=== PATIENT | male | born 1970 | race Caucasian/White ===

== ENCOUNTER 2020-02-17 09:15 | Outpatient (REF) | payer MEDICARE, MEDICAID, SELFPAY | END 2020-02-17 09:16 | disposition home or self-care (01) | LOC: HO.LAB 09:15 | PROVIDERS: Visit Provider Internal Medicine | DX: Z20.828 Contact with and (suspected) exposure to other viral communicable diseases (principal) | CPT/HCPCS: U0003 ==

== ENCOUNTER 2020-04-20 09:49 | Outpatient (REF) | payer MEDICARE, MEDICAID, SELFPAY | END 2020-04-20 09:50 | disposition home or self-care (01) | LOC: HO.LAB 09:49 | PROVIDERS: Visit Provider Nurse Practitioner Family | DX: Z20.822 Contact with and (suspected) exposure to COVID-19 (principal) | CPT/HCPCS: 36415; U0003 ==

== ENCOUNTER 2020-07-26 10:33 | Outpatient (REF) | payer MEDICARE, MEDICAID, SELFPAY ==
[2020-07-26 11:55] LABS: COVID-19 Test Negative (Negative)
== END 2020-07-26 10:34 | disposition home or self-care (01) ==
LOC: HO.LAB 10:33
PROVIDERS: Visit Provider Internal Medicine
DX: Z20.822 Contact with and (suspected) exposure to COVID-19 (principal)
CPT/HCPCS: 36415; 87635; C9803

== ENCOUNTER 2020-08-02 10:20 | Outpatient (REF) | payer MEDICARE, MEDICAID, SELFPAY ==
[2020-08-02 10:51] LABS: COVID-19 Test Negative (Negative)
== END 2020-08-02 10:21 | disposition home or self-care (01) ==
LOC: HO.LAB 10:20
PROVIDERS: Visit Provider Internal Medicine
DX: Z20.822 Contact with and (suspected) exposure to COVID-19 (principal)
CPT/HCPCS: 36415; 87635; C9803

== ENCOUNTER 2021-05-19 12:10 | Emergency (ER) | payer MEDICARE, MEDICAID, SELFPAY ==
--- NOTE | ~2021-05-19 | CT_ITS ---
EXAMINATION: CT MAXILLOFACIAL WITH CONTRAST CLINICAL INFORMATION: Left-sided facial swelling. COMPARISON: None available. TECHNIQUE: Multidetector helical imaging was performed in the axial plane following the administration of 85 mL Omnipaque 350 intravenous contrast. Generation of coronal and sagittal reformatted images. This CT examination was performed using dose optimization techniques as appropriate, variously including the following: *Automated exposure control *Adjustment of mA and/or kV according to patient size (this includes techniques or standardized protocols for targeted exams where dose is matched to indication/reason for exam; i.e. extremities or head) *Use of iterative reconstruction technique DLP: 320 mGy-cm FINDINGS: FRONTAL SINUSES AND DRAINAGE PATHWAYS: The frontal sinuses are clear. The frontoethmoidal recesses are patent. MAXILLARY SINUSES AND DRAINAGE PATHWAYS: Mild mucosal thickening of the maxillary sinuses. The maxillary ostia and infundibula are patent. ETHMOID SINUSES: Mild to moderate mucosal thickening of the ethmoid air cells. The ethmoid roofs appear symmetric and intact. SPHENOID SINUS AND DRAINAGE PATHWAYS: The sphenoid sinus is clear. The sphenoethmoidal recesses are patent. The carotid canals are normally covered by bone. NASAL PASSAGE: Mild mucosal thickening of the nasal passages. Moderate rightward nasal septal deviation. ORBITS: Normal appearance of the osseous orbits. The lamina papyracea are intact. No significant preseptal or retrobulbar edema. Normal appearance of the globes. Normal symmetric appearance of the extraocular musculature. No abnormalities of the intraconal or extraconal adipose tissue. Normal appearance of the optic nerve sheaths. Normal appearance of the lacrimal glands. No orbital fluid collections. No abnormalities of the orbital apices. TEMPOROMANDIBULAR JOINTS: The temporomandibular joints remain well aligned. Normal appearance of the temporomandibular joints. ADDITIONAL RELEVANT FINDINGS: Multifocal odontogenic enamel erosions and periapical lucencies of the mandibular and maxillary teeth. Partial erosion of the outer table of the alveolar process associated with the maxillary left-sided premolar. Moderate phlegmonous edema within the left-sided buccal soft tissues extending along the outer left-sided body and ramus of the mandible. No demonstrated discrete drainable fluid collection. Associated moderate thickening of the left-sided the platysma muscle. The premaxillary, pterygopalatine fossa, and orbital apical adipose tissue is maintained. Minimal fat stranding in the left-sided retromaxillary and temporal fossa adipose tissue. The right-sided retromaxillary and temporal fossa adipose tissue is clear. No demonstrated soft tissue abnormalities within the intrinsic tissues of the tongue. No radiopaque foreign body. No evidence of maxillofacial bone fractures. The zygomatic arches remain intact. No nasal bone fracture. Moderate rightward nasal septal deviation with spurring. No evidence of mandibular or maxillary fracture. The visualized mastoid air cells and middle ear cavities remain well aerated. Limited evaluation of the intracranial structures without significant abnormalities. CT/CT facial bones w con IMPRESSION: 1. Extensive maxillary and mandibular odontogenic disease with multifocal enamel erosions and periapical lucencies. Moderate phlegmonous edema throughout the left side of face, likely odontogenic in nature. No demonstrated discrete drainable fluid collection. No radiopaque foreign body. 2. Mild pansinonasal mucosal disease. Moderate rightward nasal septal deviation.
[2021-05-19 12:22] VITALS: BP 206/106; PULSE 109; RESP 18; TEMP 36.7; O2SAT 94; BMI 36.0
--- NOTE | 2021-05-19 13:02 | ED_ITS ---
HPI - Dental/Oral General Chief complaint: Dental/Oral Stated complaint: Dental pain/facial swelling Time Seen by Provider: 05/19/21 12:26 Source: patient Mode of arrival: ambulatory Limitations: no limitations History of Present Illness HPI Narrative: 50-year-old male with a history of hypertension, [id number] diabetes here with reports of left-sided facial swelling since last evening. Patient tells me that he has extensive dental caries and does not see a dentist. He tells me he has 1 tooth that is quite painful on the left lower area. Last night he noticed some swelling over the face but this seems worsened this morning. He denies any fevers or chills. No difficulty swallowing or breathin g. +smoker Related Data Home Medications Medication Instructions Recorded Confirmed blood-glucose meter #1 ea 04/20/20 clonidine HCl 0.1 mg tablet 0.1 mg PO TID PRN 04/20/20 docusate sodium 100 mg capsule 100 mg PO BID 04/20/20 doxepin 150 mg capsule 150 mg PO BEDTIME 04/20/20 dulaglutide 0.75 mg/0.5 mL 1.5 mg SUBCUT QWEEK 04/20/20 subcutaneous pen injector hydrochlorothiazide 25 mg tablet 25 mg PO DAILY 04/20/20 lisinopril 40 mg tablet 40 mg PO DAILY 04/20/20 losartan 25 mg tablet 25 mg PO DAILY 04/20/20 losartan 50 mg tablet 50 mg PO DAILY 04/20/20 metformin 1,000 mg tablet 1,000 mg PO BID 04/20/20 metoprolol succinate 200 mg 200 mg PO DAILY 04/20/20 tablet,extended release 24 hr multivitamin 1 tab PO DAILY 04/20/20 nifedipine 60 mg tablet,extended 60 mg PO DAILY 04/20/20 release nifedipine 60 mg tablet,extended 60 mg PO DAILY 04/20/20 release 24 hr olanzapine 20 mg tablet 20 mg PO BEDTIME 04/20/20 quetiapine 100 mg tablet 100 mg PO BEDTIME 04/20/20 quetiapine 25 mg tablet 25 mg PO TID PRN 04/20/20 trazodone 50 mg tablet 50 mg PO BEDTIME 04/20/20 venlafaxine 150 mg 150 mg PO DAILY 04/20/20 capsule,extended release 24 hr vitamin B complex 1 tab PO DAILY 04/20/20 Previous Rx's Medication Instructions Recorded cetirizine 10 mg capsule (Zyrtec) 10 mg PO DAILY PRN #30 cap 04/20/20 clindamycin HCl 300 mg capsule 300 mg PO BID 7 Days #14 cap 05/19/21 Allergies Allergy/AdvReac Type Severity Reaction Status Date / Time No Known Allergies Allergy Verified 05/19/21 12:22 Review of Systems Verdana 4l Review of Systems: Verdana 4d Yes all other systems are reviewed and are negative Verdana 4l Constitutional: Verdana 4d Verdana 4d Constitutional: Verdana 4d Reports no additional constitutional complaints, Denies body ache(s), Denies chills, Denies fever(s), Denies headache(s) and Denies weakness Verdana 4l Eyes: Verdana 4d Verdana 4d Eyes: Verdana 4d Reports no additional eye complaints and Denies change in vision Verdana 4l ENT: Verdana 4d Reports system reviewed and no additional complaints, except as documented, Reports dental pain, Denies dizziness, Reports facial pain, Denies headache(s), Denies nasal congestion, Denies nasal discharge and Denies neck pain Verdana 4d Comments: +facial swelling Cardiovascular: Cardiovascular: Reports no additional cardiovascular complaints, Denies chest pain, Denies leg edema and Denies dyspnea Respiratory: Respiratory: Reports no additional respiratory complaints, Denies cough and Denies dyspnea Gastrointestinal: Gastrointestinal: Reports no additional gastrointestinal complaints, Denies abdominal pain, Denies diarrhea, Denies nausea and Denies vomiting Genitourinary: Genitourinary: Denies urinary incontinence Musculoskeletal: Musculoskeletal: Reports no additional musculoskeletal complaints, Denies back pain, Denies arthralgias, Denies joint swelling, Denies neck pain, Denies numbness and Denies tingling Integumentary/Breasts: Skin/Breast: Reports system reviewed and no additional complaints, except as docu and Denies rash Neurologic: Reports system reviewed and no additional complaints, except as documented, Denies Abnormal speech present, Denies dizziness, Denies headache(s), Denies numbness, Denies tingling and Denies weakness PMFSH Past Medical History Attestation statement: The following information was validated with the patient. Source: old records reviewed and nursing notes reviewed Medical History Diabetes Social History Social History Advance Directives: No Advance Directives Information Provided: No Physical Exam Verdana 4l Vital Signs: Verdana 4d Verdana 4d Vital Signs: Verdana 4d Verdana 4Bd Last Vital Signs Verdana 4d Social Media Project Manager New 4d Social Media Project Manager New 4d Temp 98.0 F 05/19/21 12:22 Social Media Project Manager New 4d Pulse 80 05/19/21 16:04 Social Media Project Manager New 4d Resp 18 05/19/21 15:35 BP 178/89 H 05/19/21 16:04 Pulse Ox 97 05/19/21 16:04 BMI result Body Mass Index 36.0 Const: General: cooperative, healthy appearing, comfortable and no acute distress Orientation/consciousness: patient oriented x3 Limitations: no limitations HENMT: Other: No trismus To the left face there is moderate swelling Head: Yes normal to inspection Ears: hearing grossly normal bilaterally and TM's normal bilaterally General nose exam: Normal external nose present Face and sinus: Yes normal facial exam Mouth: Normal oral and palatal mucosa present Teeth and gingiva: caries Teeth image: 1. At the gum line there is tenderness, swelling. There is no obvious fluctuance or induration. Extensive dental caries throughout Throat: Yes posterior oropharynx normal, Yes tonsils normal and Yes uvula midline Eyes: General: appearance normal, both eyes and all related structures Pupils: Equal, round and reactive pupils present Neck: Neck: Yes normal visual inspection, Yes full ROM, Yes no lymphadenopathy and Yes no meningeal signs Chest: Chest palpation & inspection: normal inspection of the chest Resp: Effort & Inspection: normal respiratory effort Auscultation: clear to auscultation bilaterally Cardio: Rate: regular rate Rhythm: regular rhythm Peripheral pulses: Peripheral pulses 2+ throughout GI: Inspection: Yes normal to inspection Palpation (GI): Soft to palpation and nontender Auscultation: normal bowel sounds Back/Spine/Pelvis: Thoracic/Lumbar Spine: thoracic and lumbar spine normal to inspection Skin: General skin exam: no rashes or lesions noted Neuro: General: patient oriented x3, no meningeal signs, no focal motor deficits and normal sensation to monofilament Cranial nerves: Yes Equal, round and reactive pupils present Cognition (Neuro): normal cognition Speech: No Abnormal speech present Gait exam (Neuro): Normal gait present Motor exam (neuro): 5/5 motor strength present throughout Extrem: General: Yes normal to inspection Course Course Course Narrative: 50-year-old male with a history of diabetes, extensive dental caries here with reports of left-sided facial swelling since last evening. On exam the patient has moderate facial swelling over the left cheek. There is no trismus. There is extensive dental caries throughout with 1 tooth that has erythema, tenderness and swelling of the gum line with no obvious abscess or fluid collection. Will check CT facial bones to rule out underlying abscess versus osteomyelitis. Will check labs. At this time infection is suspected. Antibiotics ordered -asymptomatic hypertension. Patient did not take his morning medications. Will dose. 1550-CT shows no drainable fluid collection. There is some local edema which is consistent with facial cellulitis. Patient is nontoxic appearing. Vitals are stable. No leukocytosis or fever. Patient has no trismus or concern for ludwigs angina. Will discharge home with course of antibiotics and follow-up with dental clinic outpatient. Reviewed worrisome signs and symptoms such as fever, increasing swelling or difficulty breathing or swallowing when to return to the emergency department. Comfortable discharge home. MDM - Dental/Oral Medical Records Attestation: I reviewed the patient's medical records. Lab Data Attestation: I reviewed the patient's lab results. Result diagrams: 05/19/21 13:15 05/19/21 13:15 Labs: Lab Results 05/19/21 05/19/21 05/19/21 Range/Units 13:14 13:15 13:15 WBC 8.5 (4.8-10.8) X10*3/uL RBC 4.89 (4.60-5.80) X10*6/uL Hgb 15.1 (14.0-18.0) g/dl Hct 44.9 (42.0-52.0) % MCV 91.8 (80.0-98.0) fL MCH 30.9 (27.0-33.0) pg MCHC 33.6 (31.0-36.0) g/dl RDW 13.6 (11.0-16.0) % Plt Count 250 (160-400) X10*3/uL MPV 10.0 (9.4-12.4) fL Immature Gran % (Auto) 0.2 (0.0-0.4) % Neut % (Auto) 70.7 (45-73) % Lymph % (Auto) 12.5 L (20-40) % [place] % (Auto) 10.1 (2-11) % Eos % (Auto) 5.9 H (0-4) % Baso % (Auto) 0.6 (0-2) % Lymph # (Auto) 1.1 L (1.2-4.9) X10*3/uL [place] # (Auto) 0.9 (0.1-1.2) X10*3/uL Eos # (Auto) 0.5 H (0.0-0.4) X10*3/uL Baso # (Auto) 0.1 (0.0-0.2) X10*3/uL Abs Immat Gran (auto) 0.02 (0.00-0.03) X10*3/uL Absolute Neuts (auto) 6.0 (2.0-8.3) x10*3/uL Absolute Nucleated RBC 0.000 (0.0-0.012) X10*3/uL Nucleated RBC % (auto) 0.0 (0.0-0.2) /100WBC Sodium 142 (135-145) mmol/L Potassium 3.9 (3.3-5.1) mmol/L Chloride 99 (96-108) mmol/L Carbon Dioxide 35 H (22-29) mmol/L Anion Gap 12 (12-20) BUN 10 (9-16) mg/dL Creatinine 1.08 (0.5-1.4) mg/dL Estim Creat Clear Calc 93.1 Estimated GFR > 60 Random Glucose 115 (60-115) mg/dL Lactic Acid 1.1 (0.5-2.0) mmol/L Calcium 9.8 (8.4-10.2) mg/dL Imaging Data CT facial bone: Attestation: I personally reviewed and interpreted this imaging study as follows: Radiologist's impression: FINDINGS: FRONTAL SINUSES AND DRAINAGE PATHWAYS: The frontal sinuses are clear. The frontoethmoidal recesses are patent. MAXILLARY SINUSES AND DRAINAGE PATHWAYS: Mild mucosal thickening of the maxillary sinuses. The maxillary ostia and infundibula are patent. ETHMOID SINUSES: Mild to moderate mucosal thickening of the ethmoid air cells. The ethmoid roofs appear symmetric and intact. SPHENOID SINUS AND DRAINAGE PATHWAYS: The sphenoid sinus is clear. The sphenoethmoidal recesses are patent. The carotid canals are normally covered by bone. NASAL PASSAGE: Mild mucosal thickening of the nasal passages. Moderate rightward nasal septal deviation. ORBITS: Normal appearance of the osseous orbits. The lamina papyracea are intact. No significant preseptal or retrobulbar edema. Normal appearance of the globes. Normal symmetric appearance of the extraocular musculature. No abnormalities of the intraconal or extraconal adipose tissue. Normal appearance of the optic nerve sheaths. Normal appearance of the lacrimal glands. No orbital fluid collections. No abnormalities of the orbital apices. TEMPOROMANDIBULAR JOINTS: The temporomandibular joints remain well aligned. Normal appearance of the temporomandibular joints. ADDITIONAL RELEVANT FINDINGS: Multifocal odontogenic enamel erosions and periapical lucencies of the mandibular and maxillary teeth. Partial erosion of the outer table of the alveolar process associated with the maxillary left-sided premolar. Moderate phlegmonous edema within the left-sided buccal soft tissues extending along the outer left-sided body and ramus of the mandible. No demonstrated discrete drainable fluid collection. Associated moderate thickening of the left-sided the platysma muscle. The premaxillary, pterygopalatine fossa, and orbital apical adipose tissue is maintained. Minimal fat stranding in the left-sided retromaxillary and temporal fossa adipose tissue. The right-sided retromaxillary and temporal fossa adipose tissue is clear. No demonstrated soft tissue abnormalities within the intrinsic tissues of the tongue. No radiopaque foreign body. No evidence of maxillofacial bone fractures. The zygomatic arches remain intact. No nasal bone fracture. Moderate rightward nasal septal deviation with spurring. No evidence of mandibular or maxillary fracture. The visualized mastoid air cells and middle ear cavities remain well aerated. Limited evaluation of the intracranial structures without significant abnormalities. CT/CT facial bones w con IMPRESSION: 1. Extensive maxillary and mandibular odontogenic disease with multifocal enamel erosions and periapical lucencies. Moderate phlegmonous edema throughout the left side of face, likely odontogenic in nature. No demonstrated discrete drainable fluid collection. No radiopaque foreign body. ? 2. Mild pansinonasal mucosal disease. Moderate rightward nasal septal deviation. ? Discharge Plan Discharge Clinical Impression: Cellulitis of face, Dental caries Patient Disposition: Home, Self-Care Instructions: Cellulitis (ED) Additional Instructions: Soft foods Salt water gargles Follow-up with dental clinic Prescriptions: New clindamycin HCl 300 mg capsule 300 mg PO BID 7 Days Qty: 14 0RF No Action Trulicity 0.75 mg/0.5 mL pen injector 1.5 mg subcut QWEEK 0RF doxepin 150 mg capsule 150 mg PO BEDTIME 0RF venlafaxine 150 mg capsule,extended release 24hr 150 mg PO DAILY 0RF quetiapine 25 mg tablet 25 mg PO TID PRN0RF clonidine HCl 0.1 mg tablet 0.1 mg PO TID PRN0RF olanzapine 20 mg tablet 20 mg PO BEDTIME 0RF hydrochlorothiazide 25 mg tablet 25 mg PO DAILY 0RF vitamin B complex Tablet 1 tab PO DAILY 0RF docusate sodium 100 mg capsule 100 mg PO BID 0RF metformin 1,000 mg tablet 1,000 mg PO BID 0RF nifedipine 60 mg tablet extended release 24hr 60 mg PO DAILY 0RF quetiapine 100 mg tablet 100 mg PO BEDTIME 0RF multivitamin Tablet 1 tab PO DAILY 0RF metoprolol succinate 200 mg tablet extended release 24 hr 200 mg PO DAILY 0RF losartan 50 mg tablet 50 mg PO DAILY 0RF lisinopril 40 mg tablet 40 mg PO DAILY 0RF losartan 25 mg tablet 25 mg PO DAILY 0RF nifedipine 60 mg tablet extended release 60 mg PO DAILY 0RF (DME) blood-glucose meter Kit See Rx Instructions ea .ROUTE .MEDSUPPLY Qty: 1 0RF Rx Instructions: As directed trazodone 50 mg tablet 50 mg PO BEDTIME 0RF Zyrtec 10 mg capsule 10 mg PO DAILY PRN (Reason: allergy symptoms) Qty: 30 0RF Referrals: Zaria Haddad NP [Primary Care Provider] - 2 days Interventions: ED Discharge Assessment Last Done: 05/19/21 16:05 Discharge Date/Time: 05/19/21 16:07
[2021-05-19 13:22] LABS: MANUAL DIFF FLAG NO
[2021-05-19 13:23] LABS: Basophils Absolute Auto 0.1 X10*3/uL (0.0-0.2); Basophils Percent Auto 0.6 % (0-2); Eosinophils Absolute Auto 0.5 X10*3/uL (0.0-0.4); Eosinophils Percent Auto 5.9 % (0-4); Hematocrit 44.9 % (42.0-52.0); Hemoglobin 15.1 g/dl (14.0-18.0); Imm Gran Abs Auto 0.02 X10*3/uL (0.00-0.03); Imm Gran Pct Auto 0.2 % (0.0-0.4); Lymphocytes Absolute Auto 1.1 X10*3/uL (1.2-4.9); Lymphocytes Percent Auto 12.5 % (20-40); Mean Corpuscular HGB Conc 33.6 g/dl (31.0-36.0); Mean Corpuscular Hemoglobin 30.9 pg (27.0-33.0); Mean Corpuscular Volume 91.8 fL (80.0-98.0); Monocytes Absolute Auto 0.9 X10*3/uL (0.1-1.2); Monocytes Percent Auto 10.1 % (2-11); Neutrophils Percent Auto 70.7 % (45-73); Platelet Count 250 X10*3/uL (160-400); Red Blood Count 4.89 X10*6/uL (4.60-5.80); Red Cell Distribution Width 13.6 % (11.0-16.0); White Blood Count 8.5 X10*3/uL (4.8-10.8)
[2021-05-19] MEDS: Clindamycin Phosphate/D5W 600 MG/50 ML PIGGYBACK 100 MG IV (13:27)
[2021-05-19] MEDS: Losartan Potassium 50 MG TABLET 100 MG PO (13:27)
[2021-05-19] MEDS: hydroCHLOROthiazide 25 MG TABLET PO (13:28)
[2021-05-19] MEDS: Ketorolac Tromethamine 30 MG/ML VIAL IVPUSH (13:33)
[2021-05-19 13:35] LABS: Lactic Acid 1.1 mmol/L (0.5-2.0)
[2021-05-19 13:39] LABS: Anion Gap 12 (12-20); Blood Urea Nitrogen 10 mg/dL (9-16); Calcium 9.8 mg/dL (8.4-10.2); Carbon Dioxide 35 mmol/L (22-29); Chloride 99 mmol/L (96-108); Creatinine Clr Calc Pharmacy 93.1; Estimated Glomerular Filt Rate > 60; Glucose Random 115 mg/dL (60-115); Potassium 3.9 mmol/L (3.3-5.1); Sodium 142 mmol/L (135-145)
[2021-05-19] MEDS: iohexoL 350 MG/ML 100 ML INFUS..BTL IV (14:59)
[2021-05-19 15:35] VITALS: BP 195/109; PULSE 94; RESP 18; O2SAT 94
[2021-05-19 16:04] VITALS: BP 178/89; PULSE 80; O2SAT 97
== END 2021-05-19 16:07 | disposition home or self-care (01) ==
PROVIDERS: Nurse Practitioner Family; Emergency Provider Emergency Medicine; PCP Nurse Practitioner Family
DX: L03.211 Cellulitis of face (principal); K02.9 Dental caries, unspecified; K08.89 Other specified disorders of teeth and supporting structures; E11.9 Type 2 diabetes mellitus without complications
CPT/HCPCS: 36415; 70487; 80048; 83605; 85025; 87040; 96365; 96375; 99284; J1885; Q9967

== ENCOUNTER 2021-07-01 06:20 | Emergency (ER) | payer MEDICARE, MEDICAID, SELFPAY ==
[2021-07-01 06:28] VITALS: BP 125/65; PULSE 82; RESP 16; TEMP 36.8; O2SAT 95; BMI 37.3
--- NOTE | 2021-07-01 09:06 | ED_ITS ---
HPI - Skin/Abscess/Foreign Bdy General Chief complaint: Skin/Abscess/Foreign Body Stated complaint: infection/abscess Time Seen by Provider: 07/01/21 09:06 Source: patient Mode of arrival: ambulatory Limitations: no limitations History of Present Illness HPI narrative: Patient is a 50 year old male presenting to the emergency department today with dental pain. Patient states that he was seen here a few weeks ago and treated for facial cellulitis. Patient states that he was supposed to follow up with a dentist and he didn't. Patient describes the current dental pain as a dull pain that he rates at a 3/10 on the pain scale. Patient states that the pain does not radiate and is only in the top right part of his mouth. Patient denies any dizziness, lightheadedness, abdominal pain, nausea, vomiting, fever, chills, blurry vision, double vision, loss of vision, chest pain, difficulty breathing, shortness of breath, back pain, night sweats, pain with urination, increased urinary frequency, increased urinary urgency, blood in his urine or stool, syncope or a near syncopal episode, recent trauma or falls, bowel incontinence, bladder incontinence, bowel retention, bladder retention, or any other c omplaints at this time. MD complaint: abscess/boil Onset (ago): day(s) Severity: mild Severity scale (1-10): 3 Quality: dull Pain Consistency: constant Relieving factors: none Exacerbating factors: none Context: none Associated symptoms: denies other symptoms Treatments prior to arrival: none Related Data Home Medications Medication Instructions Recorded Confirmed blood-glucose meter #1 ea 04/20/20 clonidine HCl 0.1 mg tablet 0.1 mg PO TID PRN 04/20/20 docusate sodium 100 mg capsule 100 mg PO BID 04/20/20 doxepin 150 mg capsule 150 mg PO BEDTIME 04/20/20 dulaglutide 0.75 mg/0.5 mL 1.5 mg SUBCUT QWEEK 04/20/20 subcutaneous pen injector hydrochlorothiazide 25 mg tablet 25 mg PO DAILY 04/20/20 lisinopril 40 mg tablet 40 mg PO DAILY 04/20/20 losartan 25 mg tablet 25 mg PO DAILY 04/20/20 losartan 50 mg tablet 50 mg PO DAILY 04/20/20 metformin 1,000 mg tablet 1,000 mg PO BID 04/20/20 metoprolol succinate 200 mg 200 mg PO DAILY 04/20/20 tablet,extended release 24 hr multivitamin 1 tab PO DAILY 04/20/20 nifedipine 60 mg tablet,extended 60 mg PO DAILY 04/20/20 release nifedipine 60 mg tablet,extended 60 mg PO DAILY 04/20/20 release 24 hr olanzapine 20 mg tablet 20 mg PO BEDTIME 04/20/20 quetiapine 100 mg tablet 100 mg PO BEDTIME 04/20/20 quetiapine 25 mg tablet 25 mg PO TID PRN 04/20/20 trazodone 50 mg tablet 50 mg PO BEDTIME 04/20/20 venlafaxine 150 mg 150 mg PO DAILY 04/20/20 capsule,extended release 24 hr vitamin B complex 1 tab PO DAILY 04/20/20 Previous Rx's Medication Instructions Recorded cetirizine 10 mg capsule (Zyrtec) 10 mg PO DAILY PRN #30 cap 04/20/20 clindamycin HCl 300 mg capsule 300 mg PO BID 7 Days #14 cap 05/19/21 penicillin V potassium 500 mg 500 mg PO QID 7 Days #28 tab 07/01/21 tablet Allergies Allergy/AdvReac Type Severity Reaction Status Date / Time No Known Allergies Allergy Verified 05/19/21 12:22 Review of Systems Constitutional: Constitutional: Reports no additional constitutional complaints, Denies chills, Denies fever(s) and Denies night sweats Eyes: Eyes: Reports no additional eye complaints, Denies blurry vision, Denies change in vision, Denies diplopia, Denies eye discharge, Denies loss of vision and Denies eye pain ENT: Denies dizziness and Reports mouth pain Cardiovascular: Cardiovascular: Reports no additional cardiovascular complaints, Denies chest pain, Denies lightheadedness, Denies Loss of Consciousn ess and Denies dyspnea Respiratory: Respiratory: Reports no additional respiratory complaints and Denies dyspnea Gastrointestinal: Gastrointestinal: Reports no additional gastrointestinal complaints, Denies abdominal pain, Denies melena, Denies hematochezia, Denies change in bowel habits and Denies change in stool character Genitourinary: Genitourinary: Reports no additional male genitourinary complaints, Denies hematuria, Denies oliguria, Denies difficulty urinating, Denies dysuria, Denies urinary frequency, Denies urinary hesitancy, Denies urinary incontinence and Denies urinary urgency Musculoskeletal: Musculoskeletal: Reports no additional musculoskeletal complaints, Denies numbness and Denies tingling Neurologic: Denies dizziness, Denies loss of vision, Denies numbness and Denies tingling Psychiatric: Psychiatric: Reports no additional psychiatric complaints Endocrine: Endocrine: Reports no additional endocrine complaints Hematologic/Lymphatic: Hematologic/Lymphatic: Reports no additional hematologic/lymphatic complaints Allergic/Immunologic: Allergic/Immunologic: Reports no additional allergic/immunologic complaints [facility] Past Medical History Attestation statement: The following information was validated with the patient. Source: old records reviewed Medical History Diabetes Social History Social History Advance Directives: No Advance Directives Information Provided: Yes Physical Exam Vital Signs: Vital Signs: Last Vital Signs Temp 98.3 F 07/01/21 06:28 Pulse 82 07/01/21 06:28 Resp 16 07/01/21 06:28 BP 125/65 07/01/21 06:28 Pulse Ox 95 07/01/21 06:28 BMI result Body Mass Index 37.3 Const: General: cooperative, no acute distress, alert and awake Nutritional Appearance: well nourished Orientation/consciousness: patient oriented x3 Limitations: no limitations HENMT: Head: Yes normal to inspection and Yes atraumatic Ears: hearing grossly normal bilaterally and external ears normal General nose exam: Normal external nose present, no nasal discharge noted and no epistaxis Face and sinus: Yes normal facial exam, No abrasion and No laceration Mouth: Normal oral and palatal mucosa present, no drooling and no muffled voice Teeth image: 1. swelling in the gums surrounding the tooth. No area of fluctuance. Eyes: General: appearance normal, both eyes and all related structures Periorbital: periorbital findings normal Eyelids: Yes eyelids normal Conjunctivae: conjunctivae normal Pupils: Equal, round and reactive pupils present EOM: EOMs intact bilaterally Neck: Neck: Yes normal visual inspection, Yes full ROM and Yes no lymphadenopathy Chest: Chest palpation & inspection: normal inspection of the chest Resp: Effort & Inspection: normal respiratory effort and able to speak in complete sentences Auscultation: clear to auscultation bilaterally Cardio: Rate: regular rate Rhythm: regular rhythm GI: Inspection: Yes normal to inspection Neuro: General: patient oriented x3 and moves all extremities Cranial nerves: Yes Equal, round and reactive pupils present Cognition (Neuro): normal cognition Motor exam (neuro): 5/5 motor strength present throughout Sensory Exam: Normal double simultaneous stimulation for sensation Coordination: [id number] test normal Extrem: General: Yes normal to inspection, Yes full ROM and Yes capillary refill normal Psych: Appearance: grossly normal Mental Status: mental status grossly no rmal Affect: normal affect Attitude: cooperative Thought process: Normal thought process present Thought content: Normal thought content present Insight: Good insight present (Psych) MDM - Skin/Abscess/Foreign Bdy MDM Narrative Medical decision making narrative: Patient is a 50 year old male presenting to the emergency department today with right upper dental pain. Patient's physical exam showed gum swelling surrounding the far back right molar with no areas of fluctuance. I explained my physical exam findings to the patient. I answered all questions asked by the patient. I stressed the importance of the patient taking his medication as prescribed. I stressed the importance of the patient following up with his primary care provider and a dentist, as soon as possible. I stressed the importance of the patient returning to the emergency department immediately if his symptoms were to worsen or if he were to develop any dizziness, shortness of breath, d ifficulty breathing, chest pain, blurry vision, loss of vision, nausea, vomiting, abdominal pain, fever, chills, back pain, or any other complaints. Patient verbalized agreement and understanding with this treatment plan and discharge. Differential Diagnosis Differential diagnosis: Likely abscess of skin or subcutaneous tissue (dental abscess) and cellulitis Medical Records Attestation: I reviewed the patient's medical records. Discharge Plan Discharge Clinical Impression: Dental abscess Patient Disposition: Home, Self-Care Instructions: Dental Abscess (ED) Additional Instructions: Call or visit any of the clinics below to establish with a dentist: [facility] [address] [place] [address] [facility] [address] [facility], [address] Ankush Blankenship [address] [place] [id number] [facility] [address] [place] [id number] [facility] [address] [place] [id number] [place] [address] [place] [address] Follow up with your primary care provider. Return to the emergency department immediately if your symptoms worsen or if you develop any dizziness, shortness of breath, difficulty breathing, chest pain, blurry vision, loss of vision, nausea, vomiting, abdominal pain, fever, chills, back pain, or any other complaints. Prescriptions: New penicillin V potassium 500 mg tablet 500 mg PO QID 7 Days Qty: 28 0RF No Action clindamycin HCl 300 mg capsule 300 mg PO BID 7 Days Qty: 14 0RF Trulicity 0.75 mg/0.5 mL pen injector 1.5 mg subcut QWEEK 0RF doxepin 150 mg capsule 150 mg PO BEDTIME 0RF venlafaxine 150 mg capsule,extended release 24hr 150 mg PO DAILY 0RF quetiapine 25 mg tablet 25 mg PO TID PRN0RF clonidine HCl 0.1 mg tablet 0.1 mg PO TID PRN0RF olanzapine 20 mg tablet 20 mg PO BEDTIME 0RF hydrochlorothiazide 25 mg tablet 25 mg PO DAILY 0RF vitamin B complex Tablet 1 tab PO DAILY 0RF docusate sodium 100 mg capsule 100 mg PO BID 0RF metformin 1,000 mg tablet 1,000 mg PO BID 0RF nifedipine 60 mg tablet extended release 24hr 60 mg PO DAILY 0RF quetiapine 100 mg tablet 100 mg PO BEDTIME 0RF multivitamin Tablet 1 tab PO DAILY 0RF metoprolol succinate 200 mg tablet extended release 24 hr 200 mg PO DAILY 0RF losartan 50 mg tablet 50 mg PO DAILY 0RF lisinopril 40 mg tablet 40 mg PO DAILY 0RF losartan 25 mg tablet 25 mg PO DAILY 0RF nifedipine 60 mg tablet extended release 60 mg PO DAILY 0RF (DME) blood-glucose meter Kit See Rx Instructions ea .ROUTE .MEDSUPPLY Qty: 1 0RF Rx Instructions: As directed trazodone 50 mg tablet 50 mg PO BEDTIME 0RF Zyrtec 10 mg capsule 10 mg PO DAILY PRN (Reason: allergy symptoms) Qty: 30 0RF Referrals: Zaria Haddad NP [Primary Care Provider] - 2 days Print Language: Tristanian
== END 2021-07-01 09:30 | disposition home or self-care (01) ==
PROVIDERS: Emergency Provider Emergency Medicine; PCP Nurse Practitioner Family
DX: K04.7 Periapical abscess without sinus (principal); K08.89 Other specified disorders of teeth and supporting structures
CPT/HCPCS: 99283

== ENCOUNTER 2021-07-02 13:20 | Emergency (ER) | payer MEDICARE, MEDICAID, SELFPAY ==
--- NOTE | ~2021-07-02 | CT_ITS ---
EXAMINATION: CT SOFT TISSUE NECK WITH CONTRAST CLINICAL INFORMATION: Right facial swelling. Concern for a dental abscess. COMPARISON: CT Facial 05/19/2021 TECHNIQUE: Following the intravenous administration of 100 mL of Omnipaque 350 intravenous contrast, helical imaging was performed in the axial plane with generation of coronal and sagittal reformatted images. This CT examination was performed using dose optimization techniques as appropriate, variously including the following: *Automated exposure control *Adjustment of mA and/or kV according to patient size (this includes techniques or standardized protocols for targeted exams where dose is matched to indication/reason for exam; i.e. extremities or head) *Use of iterative reconstruction technique DLP: 767 mGy-cm FINDINGS: Associated with the upper lip lying just anterior to the frontal teeth of the maxilla is a ovoid dense structure 1.8 cm transverse by 0.9 cm superior-inferior by 0.6 cm AP which was not present on the prior CAT scan of 05/19/2020. Question if this is iatrogenic. Clinically correlate. Surrounding this structure there is significant edema involving the soft tissues of the upper lip extending along the right nasal labial fold and the right cheek. There is no abscess or drainable fluid collection. No abnormal enhancement. As noted on prior exam there is poor dentition, extensive maxillary and mandibular odontogenic disease with multifocal erosions and periapical lucencies similar prior study. No significant lymphadenopathy. Mild mucosal thickening of the inferior right maxillary sinus. Mastoid air cells and middle ear cavities are normally aerated. Orbits and retrobulbar structures are normal. Visualized intracranial structures are unremarkable. Lung apices normally aerated. Superior mediastinum is unremarkable. CT/CT soft tissue neck w con IMPRESSION: 1. Ovoid Hyperdense lesion associated with the deep portion of the upper lip. Question iatrogenic in etiology. Clinically correlate. 2. Significant edema involving the upper lip and extending along the right face but no abscess or abnormal enhancing lesions. This is likely dental in etiology. There is poor dentition
[2021-07-02 13:21] VITALS: BP 140/77; PULSE 97; RESP 17; TEMP 36.6; O2SAT 96; BMI 37.5
[2021-07-02 13:47] LABS: Glucose, Whole Blood 75 mg/dL (60-115)
[2021-07-02 13:59] LABS: MANUAL DIFF FLAG NO
[2021-07-02 14:00] LABS: Basophils Absolute Auto 0.1 X10*3/uL (0.0-0.2); Basophils Percent Auto 0.5 % (0-2); Eosinophils Absolute Auto 0.4 X10*3/uL (0.0-0.4); Eosinophils Percent Auto 3.3 % (0-4); Hematocrit 45.2 % (42.0-52.0); Hemoglobin 15.1 g/dl (14.0-18.0); Imm Gran Abs Auto 0.03 X10*3/uL (0.00-0.03); Imm Gran Pct Auto 0.2 % (0.0-0.4); Lymphocytes Absolute Auto 2.6 X10*3/uL (1.2-4.9); Lymphocytes Percent Auto 20.8 % (20-40); Mean Corpuscular HGB Conc 33.4 g/dl (31.0-36.0); Mean Corpuscular Hemoglobin 30.4 pg (27.0-33.0); Mean Corpuscular Volume 91.1 fL (80.0-98.0); Monocytes Absolute Auto 1.1 X10*3/uL (0.1-1.2); Monocytes Percent Auto 8.6 % (2-11); Neutrophils Absolute Auto 8.2 x10*3/uL (2.0-8.3); Neutrophils Percent Auto 66.6 % (45-73); Platelet Count 256 X10*3/uL (160-400); Red Blood Count 4.96 X10*6/uL (4.60-5.80); Red Cell Distribution Width 12.8 % (11.0-16.0); White Blood Count 12.3 X10*3/uL (4.8-10.8)
[2021-07-02] MEDS: 0.9 % Sodium Chloride 1,000 ML 999 ML IVCONT (14:04)
[2021-07-02] MEDS: Ketorolac Tromethamine 30 MG/ML VIAL IVPUSH (14:04)
[2021-07-02] MEDS: Clindamycin Phosphate/D5W 900 MG/50 ML PIGGYBACK 50 MG IV (14:07)
[2021-07-02 14:10] LABS: Lactic Acid 1.8 mmol/L (0.5-2.0)
--- NOTE | 2021-07-02 14:19 | ED_ITS ---
HPI - Dental/Oral General Chief complaint: Dental/Oral Stated complaint: dental infection Time Seen by Provider: 07/02/21 13:28 Source: patient Mode of arrival: ambulatory Limitations: no limitations History of Present Illness HPI Narrative: 50-year-old male with a past medical history of hypertension, non-insulin dependent diabetes currently on metformin taking as prescribed presenting to the ED with complaints of right facial pain/swelling/dental pain over the past few days worse today. He reports that he was seen here on 07/01/2021 and given antibiotics and he reports that the antibiotics are not work in and he believes that he needs IV antibiotics due to on 05/19/2021 he was here and had a CT scan of his face and received IV clindamycin for a facial cellulitis and he reports when he received these antibiotics through the IV and when he went home his symptoms completely resolved. He reports that he found the dentist in [place] although he has not made an appointment with that dentist. Patient reports that he has extensive dental caries and does not see a dentist and that he knows that he needs to get all of his teeth removed. Otherwise he denies any fevers, chills, dizziness, headaches, neck pain/stiffness, trouble swallowing or breathing, sore throat, drooling, chest pain or shortness of breath, rashes or any other symptoms complaints or concerns at this time. MD Complaint: tooth pain Teeth map: 1. Onset (ago): day(s) Duration: constant Severity: severe Severity scale (1-10): >10 Relieving factors: nothing Exacerbating factors: chewing and other (Palpation) Context: history of dental caries and poor dental care Associated symptoms: gum swelling and other (Facial swelling) Treatment prior to arrival: other (Taking the penicillin VK as prescribed) Related Data Home Medications Medication Instructions Recorded Confirmed blood-glucose meter #1 ea 04/20/20 clonidine HCl 0.1 mg tablet 0.1 mg PO TID PRN 04/20/20 docusate sodium 100 mg capsule 100 mg PO BID 04/20/20 doxepin 150 mg capsule 150 mg PO BEDTIME 04/20/20 dulaglutide 0.75 mg/0.5 mL 1.5 mg SUBCUT QWEEK 04/20/20 subcutaneous pen injector hydrochlorothiazide 25 mg tablet 25 mg PO DAILY 04/20/20 lisinopril 40 mg tablet 40 mg PO DAILY 04/20/20 losartan 25 mg tablet 25 mg PO DAILY 04/20/20 losartan 50 mg tablet 50 mg PO DAILY 04/20/20 metformin 1,000 mg tablet 1,000 mg PO BID 04/20/20 metoprolol succinate 200 mg 200 mg PO DAILY 04/20/20 tablet,extended release 24 hr multivitamin 1 tab PO DAILY 04/20/20 nifedipine 60 mg tablet,extended 60 mg PO DAILY 04/20/20 release nifedipine 60 mg tablet,extended 60 mg PO DAILY 04/20/20 release 24 hr olanzapine 20 mg tablet 20 mg PO BEDTIME 04/20/20 quetiapine 100 mg tablet 100 mg PO BEDTIME 04/20/20 quetiapine 25 mg tablet 25 mg PO TID PRN 04/20/20 trazodone 50 mg tablet 50 mg PO BEDTIME 04/20/20 venlafaxine 150 mg 150 mg PO DAILY 04/20/20 capsule,extended release 24 hr vitamin B complex 1 tab PO DAILY 04/20/20 Previous Rx's Medication Instructions Recorded cetirizine 10 mg capsule (Zyrtec) 10 mg PO DAILY PRN #30 cap 04/20/20 clindamycin HCl 300 mg capsule 300 mg PO BID 7 Days #14 cap 05/19/21 penicillin V potassium 500 mg 500 mg PO QID 7 Days #28 tab 07/01/21 tablet acetaminophen 500 mg tablet 1,000 mg PO QID PRN #14 tab 07/02/21 (Tylenol Extra Strength) clindamycin HCl 300 mg capsule 600 mg PO TID 10 Days #60 cap 07/02/21 ibuprofen 800 mg tablet 800 mg PO Q8H PRN #14 tab 07/02/21 Allergies Allergy/AdvReac Type Severity Reaction Status Date / Time No Known Allergies Allergy Verified 05/19/21 12:22 Review of Systems Review of Systems: Constitutional : No Fever, No Chills, No changes in PO intake, No difficulty speaking, no recent dental procedure, no heat or cold intolerance while eating, no recent face trauma, ENT/Mouth : + Dental pain with Right upper sided facial/gum swelling, No Sore throat, No Jaw pain, No throat swelling, No swallowing difficulty, no change in voice, no drooling, no trismus, no bleeding, no lacerations, no tongue swelling, Eyes: No Eye Pain, + right upper periorbital Swelling Cardiovascular : No Chest Pain, No SOB Respiratory : No Cough, No Sputum, No Wheezing, No Smoke Exposure, No Dyspnea Gastrointestinal : No Nausea, No Vomiting, No Diarrhea Genitourinary : No Dysuria Musculoskeletal : No Myalgias Skin : No rash, no facial swelling or redness, Neuro : No Weakness, No Numbness, No Headache Yes all other systems are reviewed and are negative [facility] Past Medical History Attestation statement: The following information was validated with the patient. Medical History Diabetes Social History Social History Advance Directives: No Advance Directives Information Provided: Yes Physical Exam Vital Signs: Vital Signs: Last Vital Signs Temp 98 F 07/02/21 13:21 Pulse 97 07/02/21 13:21 Resp 17 07/02/21 13:21 BP 140/77 H 07/02/21 13:21 Pulse Ox 96 07/02/21 13:21 BMI result Body Mass Index 37.5 vital signs have been reviewed as normal and appeared to be correct. Blood pressure 140/77. Heart rate normal. Respiration rate normal. Temperature normal. Oxygen saturation normal. Appearance: Alert. Oriented X3. No acute distress. Head: Normal external exam. Normocephalic. Atraumatic. Eyes: PERRLA. EOMI. Conjunctiva and sclera normal. Eyelids normal. ENT: EAC normal. TM's Normal. Pharynx normal. Uvula midline. Moist mucous membranes. No trismus noted. No drooling noted. No muffled voice noted. Patient tolerating secretions well. Dentition: Patient with poor dentition throughout with multiple old fractured teeth with multiple dental caries he does have moderate tenderness all patients to the right upper gum area out with some soft tissue swelling questioning fluctuance questioning dental abscess. Otherwise the rest of the Gingival within normal limits. No fluctuance. Not consistent with peritonsillar abscess. No salivary duct obstruction noted. Patient does have right-sided facial swelling/erythema and mild right lower periorbital swelling/erythema. Not consistent with orbital cellulitis. Neck: Normal inspection. Neck supple. FROM. No adenopathy. Thyroid Normal. No meningeal signs. No neck mass noted. Trachea midline. CVS: Normal heart rate and rhythm. Heart sound normal. No murmurs noted. Pulses normal throughout. Respiratory: No respiratory distress. Painless inspiration. Breath sounds normal. No wheezes/rales/rhonchi noted. Chest nontender. No accessory muscle usage noted or decreased air movement noted. Back: Full range of motion noted. Skin: Skin warm and dry. Normal skin color. Normal skin turgor. No rashes/lesions/lacerations noted. Extremities:Extremities exhibit normal range of motion. Extremities nontender. Neuro: Oriented X 3. No motor deficit. No sensory deficit. Reflexes normal. Course Course Course Narrative: 13:45pm - 50-year-old male with a past medical history of hypertension, non-insulin dependent diabetes currently on metformin taking as prescribed presenting to the ED with complaints of right facial pain/swelling/dental pain over the past few days worse today. He reports that he was seen here on 07/01/2021 and given antibiotics and he reports that the antibiotics are not work in and he believes that he needs IV antibiotics due to on 05/19/2021 he was here and had a CT scan of his face and received IV clindamycin for a facial cellulitis and he reports when he received these antibiotics through the IV and when he went home his symptoms completely resolved. He reports that he found the dentist in [place] although he has not made an appointment with that dentist. Patient reports that he has extensive dental caries and does not see a dentist and that he knows that he needs to get all of his teeth removed. Plan: Labs, blood cultures, lactic acid. Provide a L of IV fluids with 30 mg of IV Toradol and 900 mg of IV clindamycin and obtain a CT scan of soft tissue neck to evaluate for possible dental abscess then re-evaluate. Reevaluation(s) Reevaluation #1: - labs reviewed and patient with an elevated white blood cell count at 12,000. Potassium 3.2. Carbon dioxide 31. BUN 18. Calcium 10.5. AST/ALT 54/47. Total protein 8.1. Otherwise all other labs are within normal limits - therefore will give the patient some p.o. potassium. - Still awaiting CT scan to evaluate for possible dental abscess versus facial cellulitis. Time: 14:32 Reevaluation #2: - CT scan of soft tissue neck with contrast negative for any drainable abscess it appears that the patient has facial cellulitis. Therefore patient will be admitted by Dr. Li at this time. Patient understands agrees with this plan. Time: 16:11 Reevaluation #3: - Dr. Li went in to evaluate the patient and admit the patient although patient does not really want to be admitted at this time he would rather go home with p.o. antibiotics because he reports that in May when he received the p.o. antibiotics after the 1 dose of the IV antibiotics he got significantly better and his symptoms completely resolved. Therefore at this time he is refusing admission. I explained to him that if he has any new or worsening symptoms and he needs to return immediately otherwise we will DC home with clindamycin and symptomatic treatment struck him to call his dentist on Sunday. Patient understands agrees with this plan. Time: 16:18 MDM - Dental/Oral Medical Records Attestation: I reviewed the patient's medical records. Lab Data Attestation: I reviewed the patient's lab results. Result diagrams: 07/02/21 13:54 07/02/21 13:54 Labs: Lab Results 07/02/21 07/02/21 07/02/21 Range/Units 13:43 13:54 13:54 WBC 12.3 H (4.8-10.8) X10*3/uL RBC 4.96 (4.60-5.80) X10*6/uL Hgb 15.1 (14.0-18.0) g/dl Hct 45.2 (42.0-52.0) % MCV 91.1 (80.0-98.0) fL MCH 30.4 (27.0-33.0) pg MCHC 33.4 (31.0-36.0) g/dl RDW 12.8 (11.0-16.0) % Plt Count 256 (160-400) X10*3/uL MPV 10.0 (9.4-12.4) fL Immature Gran % (Auto) 0.2 (0.0-0.4) % Neut % (Auto) 66.6 (45-73) % Lymph % (Auto) 20.8 (20-40) % Bradford % (Auto) 8.6 (2-11) % Eos % (Auto) 3.3 (0-4) % Baso % (Auto) 0.5 (0-2) % Lymph # (Auto) 2.6 (1.2-4.9) X10*3/uL Bradford # (Auto) 1.1 (0.1-1.2) X10*3/uL Eos # (Auto) 0.4 (0.0-0.4) X10*3/uL Baso # (Auto) 0.1 (0.0-0.2) X10*3/uL Abs Immat Gran (auto) 0.03 (0.00-0.03) X10*3/uL Absolute Neuts (auto) 8.2 (2.0-8.3) x10*3/uL Absolute Nucleated RBC 0.000 (0.0-0.012) X10*3/uL Nucleated RBC % (auto) 0.0 (0.0-0.2) /100WBC PT 12.1 (9.9-13.0) SEC INR 1.1 (0.9-1.1) Sodium (135-145) mmol/L Potassium (3.3-5.1) mmol/L Chloride (96-108) mmol/L Carbon Dioxide (22-29) mmol/L Anion Gap (12-20) BUN (9-16) mg/dL Creatinine (0.5-1.4) mg/dL Estim Creat Clear Calc Estimated GFR POC Glucose 75 (60-115) mg/dL Random Glucose (60-115) mg/dL Lactic Acid (0.5-2.0) mmol/L Calcium (8.4-10.2) mg/dL Magnesium (1.6-2.6) mg/dL Total Bilirubin (0.0-1.0) mg/dL AST (5-37) U/L ALT (0-40) U/L Alkaline Phosphatase (39-117) U/L Total Protein (6.5-8.0) g/dL Albumin (3.5-5.0) g/dL 07/02/21 07/02/21 Range/Units 13:54 13:54 WBC (4.8-10.8) X10*3/uL RBC (4.60-5.80) X10*6/uL Hgb (14.0-18.0) g/dl Hct (42.0-52.0) % MCV (80.0-98.0) fL MCH (27.0-33.0) pg MCHC (31.0-36.0) g/dl RDW (11.0-16.0) % Plt Count (160-400) X10*3/uL MPV (9.4-12.4) fL Immature Gran % (Auto) (0.0-0.4) % Neut % (Auto) (45-73) % Lymph % (Auto) (20-40) % Bradford % (Auto) (2-11) % Eos % (Auto) (0-4) % Baso % (Auto) (0-2) % Lymph # (Auto) (1.2-4.9) X10*3/uL Bradford # (Auto) (0.1-1.2) X10*3/uL Eos # (Auto) (0.0-0.4) X10*3/uL Baso # (Auto) (0.0-0.2) X10*3/uL Abs Immat Gran (auto) (0.00-0.03) X10*3/uL Absolute Neuts (auto) (2.0-8.3) x10*3/uL Absolute Nucleated RBC (0.0-0.012) X10*3/uL Nucleated RBC % (auto) (0.0-0.2) /100WBC PT (9.9-13.0) SEC INR (0.9-1.1) Sodium 139 (135-145) mmol/L Potassium 3.2 L (3.3-5.1) mmol/L Chloride 96 (96-108) mmol/L Carbon Dioxide 31 H (22-29) mmol/L Anion Gap 15 (12-20) BUN 18 H D (9-16) mg/dL Creatinine 1.36 (0.5-1.4) mg/dL Estim Creat Clear Calc 75.6 Estimated GFR 55 POC Glucose (60-115) mg/dL Random Glucose 84 (60-115) mg/dL Lactic Acid 1.8 (0.5-2.0) mmol/L Calcium 10.5 H D (8.4-10.2) mg/dL Magnesium 1.8 (1.6-2.6) mg/dL Total Bilirubin 0.6 (0.0-1.0) mg/dL AST 54 H (5-37) U/L ALT 47 H (0-40) U/L Alkaline Phosphatase 78 (39-117) U/L Total Protein 8.1 H (6.5-8.0) g/dL Albumin 4.7 (3.5-5.0) g/dL Imaging Data CT scan of soft tissue neck with IV contrast: Attestation: I personally reviewed and interpreted this imaging study as follows: Radiologist's impression: FINDINGS: Associated with the upper lip lying just anterior to the frontal teeth of the maxilla is a ovoid dense structure 1.8 cm transverse by 0.9 cm superior-inferior by 0.6 cm AP which was not present on the prior CAT scan of 05/19/2020. Question if this is iatrogenic. Clinically correlate. Surrounding this structure there is significant edema involving the soft tissues of the upper lip extending along the right nasal labial fold and the right cheek. There is no abscess or drainable fluid collection. No abnormal enhancement. As noted on prior exam there is poor dentition, extensive maxillary and mandibular odontogenic disease with multifocal erosions and periapical lucencies similar prior study. No significant lymphadenopathy. Mild mucosal thickening of the inferior right maxillary sinus. Mastoid air cells and middle ear cavities are normally aerated. Orbits and retrobulbar structures are normal. Visualized intracranial structures are unremarkable. Lung apices normally aerated. Superior mediastinum is unremarkable. CT/CT soft tissue neck w con IMPRESSION: ? 1. Ovoid Hyperdense lesion associated with the deep portion of the upper lip. Question iatrogenic in etiology. Clinically correlate. 2. Significant edema involving the upper lip and extending along the right face but no abscess or abnormal enhancing lesions. This is likely dental in etiology. There is poor dentition? Critical Care Time Critical Care Time Critical Care Time: Yes Total Critical Care Time: 60 Attestation: I personally attest to this time spent taking care of the patient Discharge Plan Discharge Clinical Impression: Acute hypokalemia, Toothache, Dental caries, Cellulitis of face Patient Disposition: Home, Self-Care Instructions: Cellulitis (ED), Potassium Content of Foods List (ED), Hypokalemia (ED), Toothache (ED) Prescriptions: New clindamycin HCl 300 mg capsule 600 mg PO TID 10 Days Qty: 60 0RF ibuprofen 800 mg tablet 800 mg PO Q8H PRN (Reason: pain) Qty: 14 0RF acetaminophen [Tylenol Extra Strength] 500 mg tablet 1,000 mg PO QID PRN (Reason: fever or pain) Qty: 14 0RF No Action clindamycin HCl 300 mg capsule 300 mg PO BID 7 Days Qty: 14 0RF penicillin V potassium 500 mg tablet 500 mg PO QID 7 Days Qty: 28 0RF Trulicity 0.75 mg/0.5 mL pen injector 1.5 mg subcut QWEEK 0RF doxepin 150 mg capsule 150 mg PO BEDTIME 0RF venlafaxine 150 mg capsule,extended release 24hr 150 mg PO DAILY 0RF quetiapine 25 mg tablet 25 mg PO TID PRN0RF clonidine HCl 0.1 mg tablet 0.1 mg PO TID PRN0RF olanzapine 20 mg tablet 20 mg PO BEDTIME 0RF hydrochlorothiazide 25 mg tablet 25 mg PO DAILY 0RF vitamin B complex Tablet 1 tab PO DAILY 0RF docusate sodium 100 mg capsule 100 mg PO BID 0RF metformin 1,000 mg tablet 1,000 mg PO BID 0RF nifedipine 60 mg tablet extended release 24hr 60 mg PO DAILY 0RF quetiapine 100 mg tablet 100 mg PO BEDTIME 0RF multivitamin Tablet 1 tab PO DAILY 0RF metoprolol succinate 200 mg tablet extended release 24 hr 200 mg PO DAILY 0RF losartan 50 mg tablet 50 mg PO DAILY 0RF lisinopril 40 mg tablet 40 mg PO DAILY 0RF losartan 25 mg tablet 25 mg PO DAILY 0RF nifedipine 60 mg tablet extended release 60 mg PO DAILY 0RF (DME) blood-glucose meter Kit See Rx Instructions ea .ROUTE .MEDSUPPLY Qty: 1 0RF Rx Instructions: As directed trazodone 50 mg tablet 50 mg PO BEDTIME 0RF Zyrtec 10 mg capsule 10 mg PO DAILY PRN (Reason: allergy symptoms) Qty: 30 0RF Referrals: Zaria Haddad NP [Primary Care Provider] - 2 days (You also need to follow- up with your dentist or oral surgeon by Sunday or call them at least) Stand Alone Forms: Work/School Release Print Language: Tajik
[2021-07-02 14:22] LABS: Alanine Aminotransferase 47 U/L (0-40); Albumin Level 4.7 g/dL (3.5-5.0); Alkaline Phosphatase 78 U/L (39-117); Anion Gap 15 (12-20); Aspartate Amino Transferase 54 U/L (5-37); Bilirubin Total 0.6 mg/dL (0.0-1.0); Blood Urea Nitrogen 18 mg/dL (9-16); Calcium 10.5 mg/dL (8.4-10.2); Carbon Dioxide 31 mmol/L (22-29); Chloride 96 mmol/L (96-108); Creatinine Clr Calc Pharmacy 75.6; Estimated Glomerular Filt Rate 55; Glucose Random 84 mg/dL (60-115); Magnesium 1.8 mg/dL (1.6-2.6); Potassium 3.2 mmol/L (3.3-5.1); Sodium 139 mmol/L (135-145); Total Protein 8.1 g/dL (6.5-8.0)
[2021-07-02] MEDS: iohexoL 350 MG/ML 100 ML INFUS..BTL IV (14:59)
[2021-07-02] MEDS: Potassium Chloride ER 20 MEQ TAB.ER.PRT PO (15:03)
[2021-07-02 15:07] LABS: INTERNATIONAL NORM RATIO 1.1 (0.9-1.1); Prothrombin Time 12.1 SEC (9.9-13.0)
[2021-07-02 16:20] VITALS: BP 160/84; PULSE 96; RESP 18; TEMP 36.6; O2SAT 95
== END 2021-07-02 16:42 | disposition home or self-care (01) ==
PROVIDERS: Physician Assistant Medical; Emergency Provider Emergency Medicine Emergency Medical Services; PCP Nurse Practitioner Family
DX: L03.211 Cellulitis of face (principal); E87.6 Hypokalemia; K08.89 Other specified disorders of teeth and supporting structures; K02.9 Dental caries, unspecified; I10 Essential (primary) hypertension; E11.9 Type 2 diabetes mellitus without complications
CPT/HCPCS: 36415; 70491; 80053; 82947; 83605; 83735; 85025; 85610; 87040; 96361; 96365; 96375; 99284; 99291; J1885; Q9967

== ENCOUNTER 2021-08-22 09:05 | Emergency (ER) | payer MEDICARE, MEDICAID, SELFPAY ==
--- NOTE | ~2021-08-22 | XR_ITS ---
EXAMINATION: XR CHEST CLINICAL INFORMATION: Cough. COMPARISON: None TECHNIQUE: 2 views of the chest were obtained. FINDINGS: Ill-defined patchy airspace disease is noted within the lingular segment of the left upper lobe, in the appropriate clinical setting would be most consistent with pneumonia. Follow-up radiograph to resolution is recommended. The remainder of the lung damon are clear. No evidence of any pleural effusion or pneumothorax or mediastinal or hilar lymphadenopathy. Diffuse idiopathic skeletal hyperostosis is present. The visualized upper abdomen is unremarkable. XR/XR chest 2V IMPRESSION: Abnormal chest radiograph showing ill-defined patchy airspace disease at lingular segment of the left upper lobe, in the appropriate clinical setting would be most consistent with pneumonia. Follow-up radiograph to resolution is recommended.
[2021-08-22 09:09] VITALS: BP 146/91; PULSE 87; RESP 16; TEMP 36.7; O2SAT 95; BMI 37.1
--- NOTE | 2021-08-22 10:57 | ED_ITS ---
HPI - URI/Sore Throat General Chief Complaint: Upper Respiratory Symptoms Stated Complaint: Pneumonia? Time Seen by Provider: 08/22/21 10:51 Source: patient Mode of arrival: ambulatory Limitations: no limitations History of Present Illness HPI Narrative: 51-year-old male with a history of insulin-dependent diabetes, high cholesterol, hypertension here with reports of cough. Patient tells me 2 weeks ago he was di agnosed with COVID-19. He tells me that he had about 6-7 days of malaise, body aches, chills. Patient at that time denies any cough. He tells me he was feeling better until last when he developed a cough with chest congestion. No SOB/CP/fevers. Spoke to primary care Sunday and was supposed to go in today to be seen but told he may need a chest x-ray so referred to the ER. Related Data Home Medications Medication Instructions Recorded Confirmed blood-glucose meter #1 ea 04/20/20 clonidine HCl 0.1 mg tablet 0.1 mg PO TID PRN 04/20/20 docusate sodium 100 mg capsule 100 mg PO BID 04/20/20 doxepin 150 mg capsule 150 mg PO BEDTIME 04/20/20 dulaglutide 0.75 mg/0.5 mL 1.5 mg SUBCUT QWEEK 04/20/20 subcutaneous pen injector hydrochlorothiazide 25 mg tablet 25 mg PO DAILY 04/20/20 metformin 1,000 mg tablet 1,000 mg PO BID 04/20/20 metoprolol succinate 200 mg 200 mg PO DAILY 04/20/20 tablet,extended release 24 hr multivitamin 1 tab PO DAILY 04/20/20 olanzapine 20 mg tablet 20 mg PO BEDTIME 04/20/20 quetiapine 100 mg tablet 100 mg PO BEDTIME 04/20/20 quetiapine 25 mg tablet 25 mg PO TID PRN 04/20/20 venlafaxine 150 mg 150 mg PO DAILY 04/20/20 capsule,extended release 24 hr vitamin B complex 1 tab PO DAILY 04/20/20 gabapentin 600 mg tablet 1 tab PO TID 07/02/21 losartan 100 mg tablet 1 tab PO DAILY 07/02/21 nifedipine 30 mg tablet,extended 1 tab PO DAILY 07/02/21 release sitagliptin 25 mg tablet (Januvia) 1 tab PO DAILY 07/02/21 Previous Rx's Medication Instructions Recorded penicillin V potassium 500 mg 500 mg PO QID 7 Days #28 tab 07/01/21 tablet acetaminophen 500 mg tablet 1,000 mg PO QID PRN #14 tab 07/02/21 (Tylenol Extra Strength) clindamycin HCl 300 mg capsule 600 mg PO TID 10 Days #60 cap 07/02/21 ibuprofen 800 mg tablet 800 mg PO Q8H PRN #14 tab 07/02/21 doxycycline monohydrate 100 mg 100 mg PO BID #20 tab 08/22/21 tablet Allergies Allergy/AdvReac Type Severity Reaction Status Date / Time No Known Allergies Allergy Verified 08/22/21 09:17 Review of Systems Review of Systems: Yes all other systems are reviewed and are negative Constitutional: Constitutional: Reports no additional constitutional complaints, Denies body ache(s), Denies chills, Denies fever(s), Denies headache(s) and Denies weakness Eyes: Eyes: Reports no additional eye complaints and Denies change in vision ENT: Reports system reviewed and no additional complaints, except as documented, Denies dizziness, Denies headache(s), Denies nasal congestion, Denies nasal discharge and Denies neck pain Cardiovascular: Cardiovascular: Reports no additional cardiovascular complaints, Denies chest pain, Denies leg edema and Denies dyspnea Respiratory: Respiratory: Reports no additional respiratory complaints, Reports cough and Denies dyspnea Gastrointestinal: Gastrointestinal: Reports no additional gastrointestinal complaints, Denies abdominal pain, Denies diarrhea, Denies nausea and Denies vomiting Genitourinary: Genitourinary: Denies urinary incontinence Musculoskeletal: Musculoskeletal: Reports no additional musculoskeletal complaints, Denies back pain, Denies arthralgias, Denies joint swelling, Denies neck pain, Denies numbness and Denies tingling Integumentary/Breasts: Skin/Breast: Reports system reviewed and no additional complaints, except as docu and Denies rash Neurologic: Reports system reviewed and no additional complaints, except as documented, Denies Abnormal speech present, Denies dizziness, Denies headache(s), Denies numbness, Denies tingling and Denies weakness COUNTS INCLUDE 234 BEDS AT THE [facility] Past Medical History Attestation statement: The following information was validated with the patient. Source: old records reviewed and nursing notes reviewed Medical History Diabetes Social History Social History Alcohol intake: never Patient Tobacco Use Status: Never used Tobacco Advance Directives: No Advance Directives Information Provided: No Physical Exam Vital Signs: Vital Signs: Last Vital Signs Temp 98.6 F 08/22/21 11:06 Pulse 75 08/22/21 11:06 Resp 16 08/22/21 11:06 BP 132/76 08/22/21 11:06 Pulse Ox 98 08/22/21 11:06 BMI result Body Mass Index 37.1 Const: General: cooperative, healthy appearing, comfortable and no acute distress Orientation/consciousness: patient oriented x3 Limitations: no l imitations HEENT: Head: Yes normal to inspection Ears: hearing grossly normal bilaterally General nose exam: Normal external nose present Face and sinus: Yes normal facial exam Mouth: Normal oral and palatal mucosa present Throat: Yes posterior oropharynx normal Eyes: General: appearance normal, both eyes and all related structures Pupils: Equal, round and reactive pupils present Neck: Neck: Yes normal visual inspection Chest: Chest palpation & inspection: normal inspection of the chest Resp: Effort & Inspection: normal respiratory effort Auscultation: clear to auscultation bilaterally Cardio: Rate: regular rate Rhythm: regular rhythm Peripheral pulses: Peripheral pulses 2+ throughout GI: Inspection: Yes normal to inspection Palpation (GI): Soft to palpation and nontender Auscultation: normal bowel sounds Back/Spine/Pelvis: Thoracic/Lumbar Spine: thoracic and lumbar spine normal to inspection Skin: General skin exam: no rashes or lesions noted Neuro: General: patient oriented x3, no focal motor deficits and normal sensation to monofilament Cranial nerves: Yes Equal, round and reactive pupils present Cognition (Neuro): normal cognition Speech: No Abnormal speech present Gait exam (Neuro): Normal gait present Motor exam (neuro): 5/5 motor strength present throughout Extrem: General: Yes normal to inspection Course Course Course Narrative: 51-year-old male recently had COVID seemed to recover but now having cough with chest congestion. No hypoxia, no tachypnea, no fever. Will check x-ray Reevaluation(s) Reevaluation #1: Chest x-ray shows pneumonia in the left upper lobe. Likely secondary to recent viral illness. No hypoxia, no tachypnea, no fever. Patient appears well clinically. Will discharge home with course of antibiotics. Reviewed worrisome signs and symptoms of when to return to the emergency department. Comfortable discharge home. MDM - URI/Sore Throat Medical Records Attestation: I reviewed the patient's medical records. Lab Data Attestation: I reviewed the patient's lab results. Imaging Data Chest x-ray: Attestation: I personally reviewed and interpreted this imaging study as follows: Radiologist's impression: FINDINGS: Ill-defined patchy airspace disease is noted within the lingular segment of the left upper lobe, in the appropriate clinical setting would be most consistent with pneumonia. Follow-up radiograph to resolution is recommended. The remainder of the lung damon are clear. No evidence of any pleural effusion or pneumothorax or mediastinal or hilar lymphadenopathy. Diffuse idiopathic skeletal hyperostosis is present. The visualized upper abdomen is unremarkable. XR/XR chest 2V IMPRESSION: Abnormal chest radiograph showing ill-defined patchy airspace disease at lingular segment of the left upper lobe, in the appropriate clinical setting would be most consistent with pneumonia. Follow-up radiograph to resolution is recommended. Discharge Plan Discharge Clinical Impression: Pneumonia Patient Disposition: Home, Self-Care Instructions: Community Acquired Pneumonia (DC) Additional Instructions: follow-up with PCP for resolvement of symptoms. Motrin or Tylenol as needed Return for shortness of breath, chest pain, high fever which is not respond Mo eliu or Tylenol Prescriptions: New doxycycline monohydrate 100 mg tablet 100 mg PO BID Qty: 20 0RF No Action penicillin V potassium 500 mg tablet 500 mg PO QID 7 Days Qty: 28 0RF clindamycin HCl 300 mg capsule 600 mg PO TID 10 Days Qty: 60 0RF ibuprofen 800 mg tablet 800 mg PO Q8H PRN (Reason: pain) Qty: 14 0RF acetaminophen [Tylenol Extra Strength] 500 mg tablet 1,000 mg PO QID PRN (Reason: fever or pain) Qty: 14 0RF gabapentin 600 mg tablet 1 tab PO TID 0RF nifedipine 30 mg tablet extended release 1 tab PO DAILY 0RF losartan 100 mg tablet 1 tab PO DAILY 0RF Januvia 25 mg tablet 1 tab PO DAILY 0RF Trulicity 0.75 mg/0.5 mL pen injector 1.5 mg subcut QWEEK 0RF doxepin 150 mg capsule 150 mg PO BEDTIME 0RF venlafaxine 150 mg capsule,extended release 24hr 150 mg PO DAILY 0RF quetiapine 25 mg tablet 25 mg PO TID PRN (Reason: Anxiety) 0RF clonidine HCl 0.1 mg tablet 0.1 mg PO TID PRN (Reason: Anxiety) 0RF olanzapine 20 mg tablet 20 mg PO BEDTIME 0RF hydrochlorothiazide 25 mg tablet 25 mg PO DAILY 0RF vitamin B complex Tablet 1 tab PO DAILY 0RF docusate sodium 100 mg capsule 100 mg PO BID 0RF metformin 1,000 mg tablet 1,000 mg PO BID 0RF quetiapine 100 mg tablet 100 mg PO BEDTIME 0RF multivitamin Tablet 1 tab PO DAILY 0RF metoprolol succinate 200 mg tablet extended release 24 hr 200 mg PO DAILY 0RF (DME) blood-glucose meter Kit See Rx Instructions ea .ROUTE .MEDSUPPLY Qty: 1 0RF Rx Instructions: As directed Referrals: Zaria Haddad NP [Primary Care Provider] - 1 week Interventions: ED Discharge Assessment Last Done: 08/22/21 11:23 Discharge Date/Time: 08/22/21 11:24
[2021-08-22 11:06] VITALS: BP 132/76; PULSE 75; RESP 16; TEMP 37; O2SAT 98
== END 2021-08-22 11:24 | disposition home or self-care (01) ==
PROVIDERS: Emergency Provider Emergency Medicine; PCP Nurse Practitioner Family
DX: J18.9 Pneumonia, unspecified organism (principal); E11.9 Type 2 diabetes mellitus without complications; I10 Essential (primary) hypertension; Z86.16 Personal history of COVID-19; Z79.4 Long term (current) use of insulin
CPT/HCPCS: 71046; 99283; 99284

== ENCOUNTER 2021-10-26 10:07 | Outpatient (REF) | payer OTHER, MEDICARE, MEDICAID, SELFPAY ==
--- NOTE | ~2021-10-26 | XR_ITS ---
EXAMINATION: XR FOOT, LEFT CLINICAL INFORMATION: Pain COMPARISON: None TECHNIQUE: AP, lateral, and oblique views of the left foot. FINDINGS: Bone alignment is normal. No fracture or dislocation is seen. Joint are normal. There is an accessory perineal ossicle. There are small calcaneal spurs. XR/XR foot LT min 3V IMPRESSION: Accessory perineal ossicle and small calcaneal spurs.
--- NOTE | ~2021-10-26 | XR_ITS ---
EXAMINATION: XR CHEST CLINICAL INFORMATION: Bilateral lower extremity swelling COMPARISON: Previous chest x-ray August 2021 TECHNIQUE: 2 views of the chest were obtained. FINDINGS: The cardiac and mediastinal contours are normal. The lungs are clear. There is no pleural effusion or pneumothorax. There are degenerative changes of the spine. XR/XR chest 2V IMPRESSION: No evidence for acute disease in the chest.
--- NOTE | 2021-10-26 10:15 | ECG_ITS ---
Test Reason : SOB Blood Pressure : / mmHG Vent. Rate : 066 BPM Atrial Rate : 066 BPM P-R Int : 164 ms QRS Dur : 102 ms QT Int : 454 ms P-R-T Axes : 018 034 014 degrees QTc Int : 475 ms Normal sinus rhythm Normal ECG No previous ECGs available Referred By: Zaria Haddad Electronically Signed By:CARLOS FOUNTAIN MD
== END 2021-10-26 10:08 | disposition home or self-care (01) ==
LOC: HO.XRAY 10:07
PROVIDERS: PCP Nurse Practitioner Family; Visit Provider Nurse Practitioner Family
DX: M79.672 Pain in left foot (principal); R06.02 Shortness of breath
CPT/HCPCS: 71046; 73630; 93005

== ENCOUNTER 2021-12-16 10:11 | Emergency (ER) | payer OTHER, MEDICARE, MEDICAID, SELFPAY ==
[2021-12-16 10:14] VITALS: BP 127/82; PULSE 83; RESP 18; TEMP 36.6; O2SAT 99; BMI 36.3
== END 2021-12-16 14:02 | disposition left against medical advice (07) ==
PROVIDERS: Emergency Provider Emergency Medicine; PCP Nurse Practitioner Family
DX: M79.601 Pain in right arm (principal)
CPT/HCPCS: 99281

== ENCOUNTER 2021-12-18 05:34 | Emergency (ER) | payer OTHER, MEDICARE, MEDICAID, SELFPAY ==
[2021-12-18 06:08] VITALS: BP 159/104; PULSE 91; RESP 18; TEMP 37.2; O2SAT 94; BMI 36.5
[2021-12-18 06:15] LABS: MANUAL DIFF FLAG NO; White Blood Count 6.7 X10*3/uL (4.8-10.8)
[2021-12-18 06:16] LABS: Basophils Absolute Auto 0.1 X10*3/uL (0.0-0.2); Basophils Percent Auto 0.7 % (0-2); Eosinophils Absolute Auto 0.6 X10*3/uL (0.0-0.4); Eosinophils Percent Auto 8.7 % (0-4); Hematocrit 43.7 % (42.0-52.0); Hemoglobin 14.7 g/dl (14.0-18.0); Imm Gran Abs Auto 0.02 X10*3/uL (0.00-0.03); Imm Gran Pct Auto 0.3 % (0.0-0.4); Lymphocytes Absolute Auto 0.9 X10*3/uL (1.2-4.9); Lymphocytes Percent Auto 13.5 % (20-40); Mean Corpuscular HGB Conc 33.6 g/dl (31.0-36.0); Mean Corpuscular Hemoglobin 30.3 pg (27.0-33.0); Mean Corpuscular Volume 90.1 fL (80.0-98.0); Mean Platelet Volume 10.6 fL (9.4-12.4); Monocytes Absolute Auto 0.7 X10*3/uL (0.1-1.2); Neutrophils Absolute Auto 4.5 x10*3/uL (2.0-8.3); Neutrophils Percent Auto 66.8 % (45-73); Platelet Count 197 X10*3/uL (160-400); Red Blood Count 4.85 X10*6/uL (4.60-5.80); Red Cell Distribution Width 12.6 % (11.0-16.0)
[2021-12-18 08:12] LABS: Alanine Aminotransferase 43 U/L (0-40); Albumin Level 4.3 g/dL (3.5-5.0); Alkaline Phosphatase 83 U/L (39-117); Anion Gap 17 (12-20); Aspartate Amino Transferase 38 U/L (5-37); Bilirubin Total 0.6 mg/dL (0.0-1.0); Blood Urea Nitrogen 15 mg/dL (9-16); Calcium 9.6 mg/dL (8.4-10.2); Carbon Dioxide 33 mmol/L (22-29); Chloride 92 mmol/L (96-108); Creatinine Clr Calc Pharmacy 83.4; Estimated Glomerular Filt Rate > 60; Glucose Random 208 mg/dL (60-115); Potassium 3.7 mmol/L (3.3-5.1); Sodium 138 mmol/L (135-145); Total Protein 7.8 g/dL (6.5-8.0)
--- NOTE | 2021-12-18 11:19 | PC.NURSE ---
called to [facility] x 3 No answer
== END 2021-12-18 11:27 | disposition left against medical advice (07) ==
PROVIDERS: Emergency Provider Emergency Medicine
DX: K12.2 Cellulitis and abscess of mouth (principal); Z79.899 Other long term (current) drug therapy
CPT/HCPCS: 36415; 80053; 85025; 99281; 99282

== ENCOUNTER 2022-06-03 11:56 | Emergency (ER) | payer MEDICARE, MEDICAID, SELFPAY ==
--- NOTE | ~2022-06-03 | XR_ITS ---
EXAMINATION: XR CHEST CLINICAL INFORMATION: Reason for Exam Cough COMPARISON: Chest radiograph 10/26/2021 TECHNIQUE: 2 views of the chest FINDINGS: Skinfold artifact overlies the right chest. Otherwise clear lungs. No pneumothorax or pleural effusion. Normal cardiomediastinal silhouette. XR/XR chest 2V IMPRESSION: Skinfold artifact overlies the right chest. Otherwise clear lungs.
[2022-06-03 12:20] VITALS: BP 119/86; PULSE 82; RESP 18; TEMP 36.7; O2SAT 95; BMI 34.3
--- NOTE | 2022-06-03 12:21 | ED_ITS ---
HPI - URI/Sore Throat General Chief Complaint: Upper Respiratory Symptoms <Bridgette Irizarry NP - Last Filed: 06/03/22 12:23> Stated Complaint: throat infection <Bridgette Irizarry NP - Last Filed: 06/03/22 12:23> Time Seen by Provider: 06/03/22 12:38 <Bridgette Irizarry NP - Last Filed: 06/03/22 12:23> History of Present Illness HPI Narrative: Patient with a complaint of cough with sputum, mild sore throat some runny nose for the past 3 or 4 days He denies chest pain or shortness of breath no dizziness no fainting no nausea no vomiting no diarrhea no difficulty breathing or swallowing no headache no confusion <BRIANNA Storm - Last Filed: 06/03/22 18:37> Related Data Home Medications: Home Medications Medication Instructions Recorded Confirmed blood-glucose meter #1 ea 04/20/20 clonidine HCl 0.1 mg tablet 0.1 mg PO TID PRN Anxiety 04/20/20 docusate sodium 100 mg capsule 100 mg PO BID 04/20/20 doxepin 150 mg capsule 150 mg PO BEDTIME 04/20/20 dulaglutide 0.75 mg/0.5 mL 1.5 mg subcut QWEEK 04/20/20 subcutaneous pen injector hydrochlorothiazide 25 mg tablet 25 mg PO DAILY 04/20/20 metformin 1,000 mg tablet 1,000 mg PO BID 04/20/20 metoprolol succinate 200 mg 200 mg PO DAILY 04/20/20 tablet,extended release 24 hr multivitamin 1 tab PO DAILY 04/20/20 olanzapine 20 mg tablet 20 mg PO BEDTIME 04/20/20 quetiapine 100 mg tablet 100 mg PO BEDTIME 04/20/20 quetiapine 25 mg tablet 25 mg PO TID PRN Anxiety 04/20/20 venlafaxine 150 mg 150 mg PO DAILY 04/20/20 capsule,extended release 24 hr vitamin B complex 1 tab PO DAILY 04/20/20 gabapentin 600 mg tablet 1 tab PO TID 07/02/21 losartan 100 mg tablet 1 tab PO DAILY 07/02/21 nifedipine 30 mg tablet,extended 1 tab PO DAILY 07/02/21 release sitagliptin phosphate 25 mg tablet 1 tab PO DAILY 07/02/21 (Kacie) Previous Rx's Medication Instructions Recorded penicillin V potassium 500 mg 500 mg PO QID 7 days #28 tabs 07/01/21 tablet acetaminophen 500 mg tablet 1,000 mg PO QID PRN fever or pain 07/02/21 (Tylenol Extra Strength) #14 tabs clindamycin HCl 300 mg capsule 600 mg PO TID dental infection 10 07/02/21 days #60 caps ibuprofen 800 mg tablet 800 mg PO Q8H PRN pain #14 tabs 07/02/21 doxycycline monohydrate 100 mg 100 mg PO BID #20 tabs 08/22/21 tablet azithromycin 250 mg tablet See Rx Instructions PO .COMPLEX #6 06/03/22 (Zithromax Z-Titi) tabs <Bridgette Irizarry NP - Last Filed: 06/03/22 12:23> Allergies/Adverse Reactions: Allergies Allergy/AdvReac Type Severity Reaction Status Date / Time No Known Allergies Allergy Verified 12/18/21 06:11 <Bridgette Irizarry NP - Last Filed: 06/03/22 12:23> [facility] Past Medical History Source: nursing notes reviewed <BRIANNA Storm - Last Filed: 06/03/22 18:37> Medical History: Medical History Diabetes <Bridgette Irizarry NP - Last Filed: 06/03/22 12:23> Social History Social History: Social History Alcohol intake: never Patient Tobacco Use Status: Never used Tobacco Advance Directives: No Advance Directives Information Provided: No <Bridgette Irizarry NP - Last Filed: 06/03/22 12:23> Physical Exam Vital Signs: Vital Signs: Last Vital Signs Temp 98.0 F 06/03/22 12:20 Pulse 82 06/03/22 12:20 Resp 18 06/03/22 12:20 BP 119/86 06/03/22 12:20 Pulse Ox 95 06/03/22 12:20 O2 Del Method 06/03/22 12:20 BMI result Body Mass Index 34.3 <Bridgette Irizarry NP - Last Filed: 06/03/22 12:23> Vital Signs: Last Vital Signs Temp 98.0 F 06/03/22 12:20 Pulse 82 06/03/22 12:20 Resp 18 06/03/22 12:20 BP 119/86 06/03/22 12:20 Pulse Ox 95 06/03/22 12:20 O2 Del Method 06/03/22 12:20 BMI result Body Mass Index 34.3 <BRIANNA Storm - Last Filed: 06/03/22 18:37> General appearance no distress The eyes no redness or discharge The ears are clear The pharynx no redness swelling or exudate mucous membranes moist voice normal The neck is supple Chest clear to auscultation bilateral full symmetric equal breath sounds Heart no murmur Abdomen soft nontender Extremities range of motion x4 no edema Skin no rash <BRIANNA Storm - Last Filed: 06/03/22 18:37> Course Course Course Narrative: This is rapid medical exam. Deferred additional HPI, ROS, PE to primary provider. 51 yo with history of DM, HTN here with productive cough/hoarse voice x 1 week. VSS. Will obtain viral testing. <Bridgette Irizarry NP - Last Filed: 06/03/22 12:23> This is rapid medical exam. Deferred additional HPI, ROS, PE to primary provider. 51 yo with history of DM, HTN here with productive cough/hoarse voice x 1 week. VSS. Will obtain viral testing. Chest x-ray was normal Testing for COVID and flu was negative Patient with worsening productive cough is prescribed antibiotics Zithromax for bronchitis, he is breathing comfortably and is discharged <BRIANNA Storm - Last Filed: 06/03/22 18:37> Medical Decision Making Lab Data Labs: Lab Results 06/03/22 Range/Units 12:29 Influenza Type A (PCR) NEGATIVE (Negative) Influenza Type B (PCR) NEGATIVE (Negative) RSV RNA Qual (PCR) NEGATIVE (Negative) SARS-CoV-2 RNA (RT-PCR) NEGATIVE (Negative) <Bridgette Irizarry NP - Last Filed: 06/03/22 12:23> Lab Results 06/03/22 Range/Units 12:29 Influenza Type A (PCR) NEGATIVE (Negative) Influenza Type B (PCR) NEGATIVE (Negative) RSV RNA Qual (PCR) NEGATIVE (Negative) SARS-CoV-2 RNA (RT-PCR) NEGATIVE (Negative) <BRIANNA Storm - Last Filed: 06/03/22 18:37> Discharge Plan Discharge Clinical Impression: Bronchitis <Bridgette Irizarry NP - Last Filed: 06/03/22 12:23> Patient Disposition: Home, Self-Care <Bridgette Irizarry NP - Last Filed: 06/03/22 12:23> Additional Instructions: Your worsening cough may be bronchitis or a viral infection On the chance it can be treated with an antibiotic I wrote a prescription for Zithromax Follow with her doctor if not better next week Return any time any worse condition or any concerns <Bridgette Irizarry NP - Last Filed: 06/03/22 12:23> Prescriptions: New azithromycin [Zithromax Z-Titi] 250 mg tablet See Rx Instructions .ROUTE .COMPLEX Qty: 6 0RF Rx Instructions: For 250 mg dose pack: take 500 mg today (day 1), then 250 mg for 4 days (days 2-5) No Action doxycycline monohydrate 100 mg tablet 100 mg PO BID Qty: 20 0RF penicillin V potassium 500 mg tablet 500 mg PO QID 7 Days Qty: 28 0RF clindamycin HCl 300 mg capsule 600 mg PO TID 10 Days Qty: 60 0RF ibuprofen 800 mg tablet 800 mg PO Q8H PRN (Reason: pain) Qty: 14 0RF acetaminophen [Tylenol Extra Strength] 500 mg tablet 1,000 mg PO QID PRN (Reason: fever or pain) Qty: 14 0RF gabapentin 600 mg tablet 1 tab PO TID nifedipine 30 mg tablet extended release 1 tab PO DAILY losartan 100 mg tablet 1 tab PO DAILY Januvia 25 mg tablet 1 tab PO DAILY Trulicity 0.75 mg/0.5 mL pen injector 1.5 mg subcut QWEEK doxepin 150 mg capsule 150 mg PO BEDTIME venlafaxine 150 mg capsule,extended release 24hr 150 mg PO DAILY quetiapine 25 mg tablet 25 mg PO TID PRN (Reason: Anxiety) clonidine HCl 0.1 mg tablet 0.1 mg PO TID PRN (Reason: Anxiety) olanzapine 20 mg tablet 20 mg PO BEDTIME hydrochlorothiazide 25 mg tablet 25 mg PO DAILY vitamin B complex Tablet 1 tab PO DAILY docusate sodium 100 mg capsule 100 mg PO BID metformin 1,000 mg tablet 1,000 mg PO BID quetiapine 100 mg tablet 100 mg PO BEDTIME multivitamin Tablet 1 tab PO DAILY metoprolol succinate 200 mg tablet extended release 24 hr 200 mg PO DAILY (DME) blood-glucose meter Kit See Rx Instructions .ROUTE .MEDSUPPLY Qty: 1 Rx Instructions: As directed <Bridgette Irizarry NP - Last Filed: 06/03/22 12:23> Interventions: ED Discharge Assessment Last Done: 06/03/22 14:55 <Bridgette Irizarry NP - Last Filed: 06/03/22 12:23> Discharge Date/Time: 06/03/22 14:55 <Bridgette Irizarry NP - Last Filed: 06/03/22 12:23>
[2022-06-03 13:37] LABS: Influenza A PCR NEGATIVE (Negative); Influenza B PCR NEGATIVE (Negative); Resp Syncy Virus RNA Qual PCR NEGATIVE (Negative); SARS COV2 PCR INHOUSE NEGATIVE (Negative)
== END 2022-06-03 14:55 | disposition home or self-care (01) ==
PROVIDERS: Nurse Practitioner Family; Emergency Provider Emergency Medicine
DX: J40 Bronchitis, not specified as acute or chronic (principal); Z20.822 Contact with and (suspected) exposure to COVID-19; Z20.828 Contact with and (suspected) exposure to other viral communicable diseases; E11.9 Type 2 diabetes mellitus without complications; I10 Essential (primary) hypertension; Z79.84 Long term (current) use of oral hypoglycemic drugs; Z79.899 Other long term (current) drug therapy
CPT/HCPCS: 0241U; 71046; 99282; 99283

== ENCOUNTER 2023-04-12 12:50 | Inpatient (IN) | payer MEDICARE, MEDICAID, SELFPAY ==
[2023-04-12 13:29] VITALS: BP 162/96; PULSE 122; RESP 19; TEMP 36.1; O2SAT 93; BMI 35.9
--- NOTE | 2023-04-12 13:43 | ED_ITS ---
HPI - Psych General Chief Complaint: Psychiatric Symptoms Stated Complaint: crisis Time Seen by Provider: 04/12/23 13:36 Source: patient Mode of arrival: ambulatory Limitations: no limitations History of Present Illness HPI Narrative: 52-year-old male presents with worsening anxiety, depression, increasing life stressors and suicidal ideation with plan to overdose, he reports he has overdose the past. He reports he is taking about half twice the amount of meds he is supposed to be taking. He has been doing this for 2 weeks. No hallucinations. Denies drugs, alcohol and tobacco. No medical complaints. Related Data Home Medications Medication Instructions Recorded Confirmed blood-glucose meter #1 ea 04/20/20 clonidine HCl 0.1 mg tablet 0.1 mg PO TID PRN Anxiety 04/20/20 docusate sodium 100 mg capsule 100 mg PO BID 04/20/20 doxepin 150 mg capsule 150 mg PO BEDTIME 04/20/20 dulaglutide 0.75 mg/0.5 mL 1.5 mg subcut QWEEK 04/20/20 subcutaneous pen injector hydrochlorothiazide 25 mg tablet 25 mg PO DAILY 04/20/20 metformin 1,000 mg tablet 1,000 mg PO BID 04/20/20 metoprolol succinate 200 mg 200 mg PO DAILY 04/20/20 tablet,extended release 24 hr multivitamin 1 tab PO DAILY 04/20/20 olanzapine 20 mg tablet 20 mg PO BEDTIME 04/20/20 quetiapine 100 mg tablet 100 mg PO BEDTIME 04/20/20 quetiapine 25 mg tablet 25 mg PO TID PRN Anxiety 04/20/20 venlafaxine 150 mg 150 mg PO DAILY 04/20/20 capsule,extended release 24 hr vitamin B complex 1 tab PO DAILY 04/20/20 gabapentin 600 mg tablet 1 tab PO TID 07/02/21 losartan 100 mg tablet 1 tab PO DAILY 07/02/21 nifedipine 30 mg tablet,extended 1 tab PO DAILY 07/02/21 release sitagliptin phosphate 25 mg tablet 1 tab PO DAILY 07/02/21 (Januvia) Previous Rx's Medication Instructions Recorded penicillin V potassium 500 mg 500 mg PO QID 7 days #28 tabs 07/01/21 tablet acetaminophen 500 mg tablet 1,000 mg (2 x 500 mg) PO QID PRN 07/02/21 (Tylenol Extra Strength) fever or pain #14 tabs clindamycin HCl 300 mg capsule 600 mg (2 x 300 mg) PO TID dental 07/02/21 infection 10 days #60 caps ibuprofen 800 mg tablet 800 mg PO Q8H PRN pain #14 tabs 07/02/21 doxycycline monohydrate 100 mg 100 mg PO BID #20 tabs 08/22/21 tablet azithromycin 250 mg tablet See Rx Instructions PO .COMPLEX #6 06/03/22 (Zithromax Z-Titi) tabs Allergies Allergy/AdvReac Type Severity Reaction Status Date / Time No Known Allergies Allergy Verified 04/12/23 13:28 Review of Systems 2 Review of Systems: Constitutional : No Weight loss, No Fever, No Chills, No Fatigue, No Malaise ENT/Mouth : No sore throat, No Rhinorrhea Eyes: No Eye Pain, No Swelling, No Redness Cardiovascular : No Chest Pain, No SOB, No Dyspnea on Exertion, No Orthopnea, No Edema, No Palpitations Respiratory : No Cough, No Sputum, No Wheezing Gastrointestinal : No Nausea, No Vomiting, No Diarrhea, No Constipation, No abdominal Pain, No Hematochezia, No Melena Genitourinary : No Dysuria, No Urinary Frequency, No Hematuria, Musculoskeletal : No joint pain, No Myalgias, No Joint Swelling Skin : No Skin Lesions, No rash Neuro : No Weakness, No Numbness, No Dizziness, No Headache Psych : No Anxiety/Panic, No Depression, + SI, No HI All other systems reviewed and are negative Yes all other systems are reviewed and are negative [facility] Past Medical History Attestation statement: The following information was validated with the patient. Source: old records reviewed and nursing notes reviewed Medical History Diabetes Social History Social History Alcohol intake: never Patient Tobacco Use Status: Never used Tobacco Physical Exam 2 Vital Signs: Vital Signs: Last Vital Signs Temp 96.9 F 04/12/23 13:29 Pulse 122 H 04/12/23 13:29 Resp 19 04/12/23 13:29 BP 162/96 H 04/12/23 13:29 Pulse Ox 93 04/12/23 13:29 O2 Del Method Room Air 04/12/23 13:29 BMI result Body Mass Index 35.9 tachycardia- likely anxiety Appearance: Alert.? Oriented X3.? No acute distress.? Head: Normocephalic, atraumatic, no step-offs or deformities Eyes: Pupils equal, round and reactive to light.? ENT: Pharynx normal.? Neck: Normal inspection.? Neck supple.? CVS: Normal heart rate and rhythm.? Pulses normal.? Respiratory: No respiratory distress.? Breath sounds normal.? Abdomen: Soft and nontender.? Skin: Skin warm and dry.? Normal skin color.? Normal skin turgor.? Extremities: No lower extremity edema.? No calf ttp. 5/5 strength to bilateral upper and lower extremities Back: No midline tenderness, no C-spine tenderness, full range of motion, no CVA tenderness bilaterally Neuro: Oriented X 3.? No motor deficit.? No sensory deficit. CN 2-12 intact Course Reevaluation(s) Reevaluation #1: Patient admitted to not taking his medications as prescribed he was evaluated by recovery that determined patient to be on 127 mg of methadone daily will start tomorrow. He took a dose today. Time: 15:48 Reevaluation #2: CBC unremarkable. Chemistry no acute finding requiring intervention. UA without infection. Urine tox positive for cocaine negative for ethanol at this time patient to be placed into observation, patient is an inpatient bed search. Time: 16:04 Medications Administered Discontinued Medications Generic Name Dose Route Start Last Admin Trade Name Freq PRN Reason Stop Dose Admin Nicotine Polacrilex 2 mg 04/12/23 15:03 04/12/23 15:12 Nicotine Polacrilex 2 Mg Gum BUCCAL 2 mg ONCE PRN Administration Tobacco Medical Decision Making Medical Decision Making [facility] Narrative: 1347 52 year old male presents w/ anxiety, depression and si w/ thoughts to OD X few days Physical exam benign Concerns for prescription medication misuse with suicidal ideation, worsening anxiety and depression. Other differentials include bipolar, schizophrenia. Unlikely metabolic derangements. No trauma. Plan medical clearance evaluation by behavioral health team Differential Diagnosis Differential Diagnoses: The differential diagnosis associated with the presentation includes Concerns for prescription medication misuse with suicidal ideation, worsening anxiety and depression. Other differentials include bipolar, schizophrenia. Unlikely metabolic derangements. No trauma. Admission/Observation Consideration of admission/observation: Escalation of care including admission/observation considered Lab Data 04/12/23 15:22 04/12/23 15:22 Labs: Lab Results 04/12/23 04/12/23 Range/Units 15:22 15:26 WBC 9.6 (4.8-10.8) X10*3/uL RBC 4.96 (4.60-5.80) X10*6/uL Hgb 15.0 (14.0-18.0) g/dl Hct 44.9 (42.0-52.0) % MCV 90.5 (80.0-98.0) fL MCH 30.2 (27.0-33.0) pg MCHC 33.4 (31.0-36.0) g/dl RDW 12.7 (11.0-16.0) % Plt Count 275 D (160-400) X10*3/uL MPV 10.4 (9.4-12.4) fL Immature Gran % (Auto) 0.3 (0.0-0.4) % Neut % (Auto) 72.5 (45-73) % Lymph % (Auto) 18.1 L (20-40) % [place] % (Auto) 4.4 (2-11) % Eos % (Auto) 4.1 H (0-4) % Baso % (Auto) 0.6 (0-2) % Lymph # (Auto) 1.7 (1.2-4.9) X10*3/uL [place] # (Auto) 0.4 (0.1-1.2) X10*3/uL Eos # (Auto) 0.4 (0.0-0.4) X10*3/uL Baso # (Auto) 0.1 (0.0-0.2) X10*3/uL Abs Immat Gran (auto) 0.03 (0.00-0.03) X10*3/uL Absolute Neuts (auto) 7.0 (2.0-8.3) x10*3/uL Absolute Nucleated RBC 0.000 (0.0-0.012) X10*3/uL Nucleated RBC % (auto) 0.0 (0.0-0.2) /100WBC Sodium 139 (135-145) mmol/L Potassium 4.1 (3.3-5.1) mmol/L Chloride 100 (96-108) mmol/L Carbon Dioxide 28 (22-29) mmol/L Anion Gap 15 (12-20) BUN 13 (9-16) mg/dL Creatinine 1.35 (0.5-1.4) mg/dL Estim Creat Clear Calc 72.7 Estimated GFR 55 Random Glucose 120 H (60-115) mg/dL Calcium 10.5 H D (8.4-10.2) mg/dL Magnesium 2.2 (1.6-2.6) mg/dL Total Bilirubin 0.4 (0.0-1.0) mg/dL AST 36 (5-37) U/L ALT 40 (0-40) U/L Alkaline Phosphatase 52 (39-117) U/L Total Protein 8.6 H (6.5-8.0) g/dL Albumin 4.8 (3.5-5.0) g/dL Urine Color Yellow Urine Appearance Clear Urine pH 7.0 (5.0-9.0) Ur Specific [place] >= 1.030 H (1.005-1.025) Urine Protein Negative (Neg-Trace) mg/dL Urine Glucose (UA) >=1000 H (Negative) mg/dL Urine Ketones Negative (Negative) mg/dL Urine Blood Moderate (2+) H (Negative) Urine Nitrite Negative (Negative) Ur Leukocyte Esterase Negative (Negative) Urine RBC >20 H (0-2) /HPF Urine WBC 0-5 (0-5) /HPF Ur Squamous Epith Cells 0-2 (0-2) /HPF Urine Bacteria None Seen (None Seen) Hyaline Casts 0-2 (0-2) /LPF Urine Opiates Screen Not Detected (Not Detect) Urine Fentanyl Screen Not Detected (Not Detect) Ur Barbiturates Screen Not Detected (Not Detect) Ur Phencyclidine Scrn Not Detected (Not Detect) Ur Amphetamines Screen Not Detected (Not Detect) U Benzodiazepines Scrn Not Detected (Not Detect) Urine Cocaine Screen POSITIVE H (Not Detect) U Marijuana (THC) Screen Not Detected (Not Detect) Ethyl Alcohol < 10 mg/dL COVID-19 (AYANNA) Negative (Negative) COVID-19 Clin Com See Note Critical Care Time Critical Care Time Critical Care Time: No Discharge Plan Discharge Clinical Impression: Depression, Suicidal ideation Patient Disposition: Still a Patient Prescriptions: No Action doxycycline monohydrate 100 mg tablet 100 mg PO BID Qty: 20 0RF azithromycin [Zithromax Z-Titi] 250 mg tablet See Rx Instructions .ROUTE .COMPLEX Qty: 6 0RF Rx Instructions: For 250 mg dose pack: take 500 mg today (day 1), then 250 mg for 4 days (days 2-5) penicillin V potassium 500 mg tablet 500 mg PO QID 7 Days Qty: 28 0RF clindamycin HCl 300 mg capsule 600 mg PO TID 10 Days Qty: 60 0RF ibuprofen 800 mg tablet 800 mg PO Q8H PRN (Reason: pain) Qty: 14 0RF acetaminophen [Tylenol Extra Strength] 500 mg tablet 1,000 mg PO QID PRN (Reason: fever or pain) Qty: 14 0RF gabapentin 600 mg tablet 1 tab PO TID nifedipine 30 mg tablet extended release 1 tab PO DAILY losartan 100 mg tablet 1 tab PO DAILY Januvia 25 mg tablet 1 tab PO DAILY Trulicity 0.75 mg/0.5 mL pen injector 1.5 mg subcut QWEEK doxepin 150 mg capsule 150 mg PO BEDTIME venlafaxine 150 mg capsule,extended release 24hr 150 mg PO DAILY quetiapine 25 mg tablet 25 mg PO TID PRN (Reason: Anxiety) clonidine HCl 0.1 mg tablet 0.1 mg PO TID PRN (Reason: Anxiety) olanzapine 20 mg tablet 20 mg PO BEDTIME hydrochlorothiazide 25 mg tablet 25 mg PO DAILY vitamin B complex Tablet 1 tab PO DAILY docusate sodium 100 mg capsule 100 mg PO BID metformin 1,000 mg tablet 1,000 mg PO BID quetiapine 100 mg tablet 100 mg PO BEDTIME multivitamin Tablet 1 tab PO DAILY metoprolol succinate 200 mg tablet extended release 24 hr 200 mg PO DAILY (DME) blood-glucose meter Kit See Rx Instructions .ROUTE .MEDSUPPLY Qty: 1 Rx Instructions: As directed
--- NOTE | 2023-04-12 14:11 | ECG_ITS ---
Test Reason : admission Blood Pressure : / mmHG Vent. Rate : 090 BPM Atrial Rate : 090 BPM P-R Int : 152 ms QRS Dur : 104 ms QT Int : 414 ms P-R-T Axes : 040 030 005 degrees QTc Int : 506 ms Normal sinus rhythm Possible Left atrial enlargement Nonspecific T wave abnormality Prolonged QT Abnormal ECG When compared with ECG of 26-OCT-2021 10:14, Nonspecific T wave abnormality now evident in Anterolateral leads Referred By: Generic ED Physician Electronically Signed By:BEE GARCIA
[2023-04-12] MEDS: Nicotine Polacrilex 2 MG GUM BUCCAL ×2 (15:12→18:48)
[2023-04-12 15:30] LABS: MANUAL DIFF FLAG NO
[2023-04-12 15:39] LABS: Appearance Urine Clear; Color Urine Yellow; Glucose Urine UA >=1000 mg/dL (Negative); Leukocyte Esterase Urine Negative (Negative); Nitrite Urine Negative (Negative); Specific Gravity - Urine >= 1.030 (1.005-1.025); UMIC TRIGGER UACC YES; Urine Blood Moderate (2+) (Negative); Urine Ketones Negative (Negative); Urine Protein Negative (Neg-Trace)
[2023-04-12 15:40] LABS: Basophils Absolute Auto 0.1 X10*3/uL (0.0-0.2); Basophils Percent Auto 0.6 % (0-2); Eosinophils Absolute Auto 0.4 X10*3/uL (0.0-0.4); Eosinophils Percent Auto 4.1 % (0-4); Hematocrit 44.9 % (42.0-52.0); Imm Gran Abs Auto 0.03 X10*3/uL (0.00-0.03); Imm Gran Pct Auto 0.3 % (0.0-0.4); Lymphocytes Absolute Auto 1.7 X10*3/uL (1.2-4.9); Lymphocytes Percent Auto 18.1 % (20-40); Mean Corpuscular HGB Conc 33.4 g/dl (31.0-36.0); Mean Corpuscular Hemoglobin 30.2 pg (27.0-33.0); Mean Corpuscular Volume 90.5 fL (80.0-98.0); Mean Platelet Volume 10.4 fL (9.4-12.4); Monocytes Absolute Auto 0.4 X10*3/uL (0.1-1.2); Monocytes Percent Auto 4.4 % (2-11); Neutrophils Percent Auto 72.5 % (45-73); Platelet Count 275 X10*3/uL (160-400); Red Blood Count 4.96 X10*6/uL (4.60-5.80); Red Cell Distribution Width 12.7 % (11.0-16.0); White Blood Count 9.6 X10*3/uL (4.8-10.8)
[2023-04-12 15:41] LABS: Bacteria Urine None Seen (None Seen); Hyaline Casts Urine 0-2 /LPF (0-2); RBC Urine >20 /HPF (0-2); Squamous Epithelial Cell Urine 0-2 /HPF (0-2); WBC Urine 0-5 /HPF (0-5)
[2023-04-12 15:45] LABS: COVID-19 Test Negative (Negative); IDNOW Serial# 08D9AD1C
[2023-04-12 15:52] LABS: Amphetamine Screen Urine Not Detected (Not Detect); Barbiturates, Urine Not Detected (Not Detect); Benzodiazepines Screen Urine Not Detected (Not Detect); Cannabinoid Screen Urine Not Detected (Not Detect); Cocaine Screen Urine POSITIVE (Not Detect); Fentanyl, urine Not Detected (Not Detect); Opiate Screen Urine Not Detected (Not Detect); Phencyclidine Screen Urine Not Detected (Not Detect)
--- NOTE | 2023-04-12 15:53 | MHC.RECOVRN ---
Met with pt in [facility] after pt reported taking double the dose of his methadone. Pt presented to the ED after being evaluated by [facility] at home and reporting SI with plan to overdose and taking double the amount of all of his medications. Pt sitting in bed, awake, alert, easily engages in conversation. Pt reports currently receiving 127 mg of methadone through [facility], receives 27 bottles for take home dosing at a time. Of note, pt brought lock box of bottles and 10 bottles that should be full are empty. Pt reports for the past 10 days he has been taking more methadone than prescribed. Pt reports it started as a little more and has increased to an extra bottle a day. Pt reports he took 2 doses today. Pt does not appear to be sedated, is awake and alert. Pt reports last opioid use Apr 2022. Discussed plan of methadone while here, pt agreeable to prescribed daily dose of 127 mg. Pt will notify RN if withdrawal symptoms occur. Pt denies questions or concerns for t/w. Discussed with ED provider.
[2023-04-12 15:59] LABS: Alanine Aminotransferase 40 U/L (0-40); Albumin Level 4.8 g/dL (3.5-5.0); Alkaline Phosphatase 52 U/L (39-117); Anion Gap 15 (12-20); Aspartate Amino Transferase 36 U/L (5-37); Bilirubin Total 0.4 mg/dL (0.0-1.0); Blood Urea Nitrogen 13 mg/dL (9-16); Calcium 10.5 mg/dL (8.4-10.2); Carbon Dioxide 28 mmol/L (22-29); Chloride 100 mmol/L (96-108); Creatinine Clr Calc Pharmacy 72.7; Estimated Glomerular Filt Rate 55; Ethanol < 10 mg/dL; Glucose Random 120 mg/dL (60-115); Magnesium 2.2 mg/dL (1.6-2.6); Potassium 4.1 mmol/L (3.3-5.1); Sodium 139 mmol/L (135-145); Total Protein 8.6 g/dL (6.5-8.0)
--- OUTSIDE RECORDS SUMMARY | 2023-04-12 16:10 | XMS_ITS | Continuity of Care Document ---
Author Name Unknown Organization [facility] Address [address] [facility], [address] Floor, [address] [place] [id number] Care Team Providers Care Solution Engineer Name Role Phone Not on Staff, PCP Primary Care Physician Unavail able Encounter [facility] Date(s): 08/23/22 - 12/13/22 [facility] [address], [address], [address] [place] [id number] Attending Physician: Shashi Montgomery MD Admitting Physician: Shashi Montgomery MD Referring Physician: Trevor YOUTH SERVICES SPECIALIST, [place] Allergies, Adverse Reactions, Alerts Substance Reaction Severity Status predniSONE Active Immunizations Given and Recorded Vaccine Date Status Refusal Reason influenza virus vaccine, inactivated 01/20/13 Give n influenza virus vaccine, inactivated 1 06/28/12 Gi juan influenza virus vaccine, inactivated 2 04/06/06 Gi juan Pneumococcal Poly (PPV23) (oldterm) 3 06/28/12 Giv en Tetanus Toxoid Vaccine (oldterm) 10/26/08 Given 1Admin Note: vis 11/2011 2Admin Note: vis given 3Admin Note: vis 01/19/09 Medications Alcohol Wipes See Instructions, # 1 box, Refills 11, Tot. Refills 11, Maintenance, test QD, Dx E11.9, 07/26/17 13:52:11 EDT, Compound Start Date: 07/26/17 Status: Ordered AST, ALT, alk phos, lipase, bilirubin total and direct, electrolytes, BUN, Cr, Hep C viral load, A1 AST, ALT, alk phos, lipase, bilirubin total and direct, electrolytes, BUN, Cr, Hep C viral load, A1c, See Instructions, # 1 each, Refills 0, Tot. Refills 0, Maintenance, please fax results to [facility] fax [phone], 07/26/17 14:... Start Date: 07/26/17 Status: Ordered cloNIDine 0.1 mg oral tablet 0.1 mg, 1, tablet, By Mouth, 3 times a day, # 90 tablet, Refills 0, Tot. Refills 0, Maintenance, 09/04/17 15:29:37 EDT, Route to Pharmacy Electronically, [id number], [facility] Start Date: 09/04/17 Status: Ordered Colace sodium 50 mg oral capsule 1 capsule = 50 mg, By Mouth, 2 times a day, PRN for constipation, # 180 capsule, 3 Refills, Maintenance, 07/26/17 13:51:38 EDT, Capsule Start Date: 07/26/17 Status: Ordered doxepin 150 mg oral capsule 1 capsule = 150 mg, By Mouth, Daily at bedtime, # 30 capsule, 0 Refills, Maintenance, 09/25/17 9:17:38 EDT Start Date: 09/25/17 Status: Ordered hydrochlorothiazide 25 mg oral tablet 25 mg, 1, tablet, By Mouth, Daily, # 90 tablet, Refills 3, Tot. Refills 3, Maintenance, 07/26/17 13:52:17 EDT, Print Requisition Start Date: 07/26/17 Status: Ordered Lancets See Instructions, # 1 box, Refills 11, Tot. Refills 11, Maintenance, test Daily, Dx E11.9 for Metrix meter, 07/26/17 13:52:13 EDT, Compound Start Date: 07/26/17 Status: Ordered lisinopril 40 mg oral tablet 1 tablet = 40 mg, By Mouth, Daily, # 90 tablet, 2 Refills, Maintenance, 09/18/17 10:44:27 EDT, Tablet Start Date: 09/18/17 Status: Ordered metFORMIN 500 mg oral tablet 1 tablet = 500 mg, By Mouth, 2 times a day, # 180 tablet, 3 Refills, Maintenance, 07/26/17 13:52:21EDT, Tablet Start Date: 07/26/17 Status: Ordered Methadone = 110 mg, By Mouth, Daily, Rx- by [facility] [address] ([place]) Dose reduced d/t QTc 480s, 0 Refills, Maintenance, 07/12/15 11:01:04 EDT Start Date: 07/12/15 Status: Ordered metoprolol 200 mg oral tablet, extended release 1 tablet = 200 mg, By Mouth, Daily, # 90 tablet, 3 Refills, Maintenance, 07/26/17 13:52:27 EDT, ER Tablet Start Date: 07/26/17 Status: Ordered nicotine 14 mg/24 hr transdermal film, extended release 1 patch, Topically, Daily, 21mg patch daily for 28 days, 14mg patch daily for 28 days, 7mg patch daily for 28 days apply to non-hairy site, # 28 patch, 0 Refills, Maintenance, 07/26/17 13:43:17 EDT, Patch Start Date: 07/26/17 Status: Ordered Nicotine 2 mg gum 1 each = 2 mg, Chew, Every 2 hours, PRN for smoking cessation, chew until taste, park in side of mouth until taste disappears. repeat cycle 30min, # 120 each, 5 Refills, Maintenance, 09/04/17 11:26:48 EDT, Gum Start Date: 09/04/17 Status: Ordered nicotine 7 mg/24 hr transdermal film, extended release 1 patch, Topically, Daily, 7mg patch daily for 28 days; apply to non-hairy site, # 28 patch, 0 Refills, Maintenance, 09/04/17 11:25:53 EDT, Patch, 1 patch Topically Daily,Instr:7mg patch daily for 28days; apply to non-hairy site Start Date: 09/04/17 Status: Ordered ranitidine 150 mg oral tablet 1 tablet = 150 mg, By Mouth, 2 times a day, PRN Dyspepsia, # 60 tablet, 3 Refills, Maintenance, 07/26/17 13:53:16 EDT, Tablet Start Date: 07/26/17 Status: Ordered rosuvastatin 10 mg oral tablet 1 tablet = 10 mg, By Mouth, Daily at bedtime, # 90 tablet, 3 Refills, Maintenance, 08/02/17 18:16:17 EDT, Tablet Start Date: 08/02/17 Status: Ordered SEROquel 100 mg oral tablet 100 mg, 1, tablet, By Mouth, Daily at bedtime, # 30 tablet, Refills 0, Tot. Refills 0, Maintenance,09/04/17 15:31:20 EDT, Route to Pharmacy Electronically, [id number], [facility] Start Date: 09/04/17 Status: Ordered SEROquel 25 mg oral tablet 25 mg, 1, tablet, By Mouth, 3 times a day, PRN, # 60 tablet, Refills 0, Tot. Refills 0, Maintenance, Anxiety, 09/04/17 15:31:48 EDT, Route to Pharmacy Electronically, [id number], [facility] Start Date: 09/04/17 Status: Ordered Test Strips See Instructions, # 1 box, Refills 11, Tot. Refills 11, Maintenance, test Daily, Dx E11.9 for Metrix meter, 07/26/17 13:52:15 EDT, Compound Start Date: 07/26/17 Status: Ordered venlafaxine 150 mg oral capsule, extended release 150 mg, 1, capsule, By Mouth, Daily, # 30 tablet, Refills 0, Tot. Refills 0, Maintenance, 09/25/17 9:17:21 EDT, Route to Pharmacy Electronically, [id number], [facility] Start Date: 09/25/17 Status: Ordered ZyPREXA 20 mg oral tablet 1 tablet = 20 mg, By Mouth, Daily at bedtime, # 30 tablet, 0 Refills, Maintenance, 09/25/17 9:21:19EDT Start Date: 09/25/17 Status: Ordered Problem List Condition Confirmation Course Effective Dates Status [facility]us Informant Bipolar disorder Confirmed Active Chronic hepatitis C- brief Tx, may be cured? Confirmed Active Diabetes mellitus Confirmed Active Hypertension- nl renal duplex Confirmed Active Opioid dependence Confirmed Active QT prolongation 1 Confirmed Active 1Drug-induced (quetiapine, olanzapine, doxepin, methadone). Per pt methadone dose reduced 08/2017 d/tQT 480s. Methadone clinic: [facility])> Social History Social History Type Response Smoking Status Current every day sm oker; Type: Cigarettes entered on: 07/12/15 Sex Patient Care team information Care Team Personnel Name: Not on Staff, PCP Position: [facility] Physician (General Medicine) Member Role: PCP Care Team Related Persons Name: JAVAD COOPER Address: [address] [address] Name: RYAN KOTHARI Address: [place] [address]
--- OUTSIDE RECORDS SUMMARY | 2023-04-12 16:10 | XMS_ITS | Continuity of Care Document ---
Author Name Unknown Organization [facility] Address [address] [facility], [address] Floor, [address] [place] [id number] Care Team Providers Care Photogrammetric Compilation Specialist Name Role Phone Not on Staff, PCP Primary Care Physician Unavail able Encounter [facility] Date(s): 08/14/22 - 09/13/22 [facility] [address], [address], [address] [place] [id number] Allergies, Adverse Reactions, Alerts Substance Reaction Severity [...] please fax results to [facility] fax [phone], 07/26/17 14:... Start Date: 07/26/17 Status: Ordered cloNIDine 0.1 mg oral tablet 0.1 mg, 1, tablet, By Mouth, 3 times a day, # 90 tablet, Refills 0, Tot. Refills 0, Maintenance, 09/04/17 15:29:37 EDT, Route to Pharmacy Electronically, [id number], [facility] - Start Date: 09/04/17 Status: Ordered Colace sodium [...] By Mouth, Daily, Rx- by [address] ([place]) Dose reduced d/t QTc 480s, 0 Refills, [...] Maintenance,09/04/17 15:31:20 EDT, Route to Pharmacy Electronically, [id number], [facility] Start Date: 09/04/17 Status: Ordered SEROquel 25 mg oral tablet 25 mg, 1, tablet, By Mouth, 3 times a day, PRN, # 60 tablet, Refills 0, Tot. Refills 0, Maintenance, Anxiety, 09/04/17 15:31:48 EDT, Route to Pharmacy Electronically, [id number], [facility] Start Date: 09/04/17 Status: Ordered Test [...] 09/25/17 9:17:21 EDT, Route to Pharmacy Electronically, [id number], [facility] Start Date: 09/25/17 Status: Ordered ZyPREXA 20 mg oral tablet 1 tablet = 20 mg, By Mouth, Daily at bedtime, # 30 tablet, 0 Refills, Maintenance, 09/25/17 9:21:19EDT Start Date: 09/25/17 Status: Ordered Problem List Condition Confirmation Course Effective Dates Status [facility] St atus Informant Bipolar disorder Confirmed Active Chronic hepatitis C- brief Tx, may be cured? Confirmed Active Diabetes mellitus Confirmed Active Hypertension- nl renal duplex Confirmed Active Opioid dependence Confirmed Active QT prolongation 1 Confirmed Active 1Drug-induced (quetiapine, olanzapine, doxepin, methadone). Per pt methadone dose reduced 08/2017 d/tQT 480s. Methadone clinic: [facility])> Social History Social History Type Response Smoking Status Current every day sm oker; Type: Cigarettes entered on: 07/12/15 Sex Patient Care team information Care Team Personnel Name: Not on Staff, PCP Position: [facility] Physician (General Medicine) Member Role: PCP Care Team Related Persons Name: JAVAD COOPER Address: [address] [address] Name: RYAN KOTHARI Address: [place] [address]
--- OUTSIDE RECORDS SUMMARY | 2023-04-12 16:10 | XMS_ITS | Patient Health Record ---
Author Name Unknown Organization [facility] Address [address], [place] [id number] Care Team Providers Care Supervisor Paste Mixing Name Role Phone Leanna Santana Primary Care Provider [phone] Frank Alarcon Unavailable [phone] [facility], Nursing Unavailable [phone] Margot Ospina Unavailable [phone] ALLERGIES Allergen (clinical drug ingredient) Drug/Non Drug Allergy documented on EMR Reaction Allergy Type Onset Date Status bupropion Wellbutrin XL seizures Drug Allergy Act ngozi nifedipine NIFEdipine stomach upset Drug Allergy A ctive diltiazem dilTIAZem stomach upset Drug Allergy Act ngozi RESULTS Component Value Reference Range Notes QUANTIFERON(R)-TB GOLD PLUS, 1 TUBE Reviewed date:12/27/2022 10:36:40 AM Interpretation:tnp Performing Lab:NL2, [facility] [id number] Caryl Maharaj Notes/Report: NON-FASTING QUANTIFERON(R)-TB GOLD PLUS, 1 TUBE TNP * Test Not Performed. * * Ordering Provider is not PECOS * * registered as required for * * Medicare coverage. * Blood Sugar/finger stick Reviewed date:05/17/2022 10:36:18 AM Interpretation:High 141 Performing Lab: Notes/Report: High 141 ALDOSTERONE RENIN RATIO Reviewed date:05/24/2022 12:59:55 PM Interpretation:Normal Performing Lab: Notes/Report: ALDOSTERONE/RENIN RATIO 2.2 0.1 - 3.7 Test performed at [facility], [address] , [place] [address] Elva Wheat MD, PhD - [employer] DIRECT RENIN 8.9 3.1 - 57.1 pg/mL ALDOSTERONE 19.2 REFERENCE RANGE: Upright <= 39.2 ng/dL Supine <= 23.2 ng/dL CBC Reviewed date:05/19/2022 09:21:37 AM Interpretation:Normal Performing Lab: Notes/Report: WBC 6.7 4.8-10.8 x10-3/uL RBC 4.9 4.5-5.5 x10-6/uL HEMOGLOBIN 15.0 13.5-17.5 g/dL HEMATOCRIT 44.5 42-54 % MCV 90.4 79-98 fL MCH 30.5 27-32 pg MCHC 33.7 32-37 g/dL RDW 12.5 11-15 % PLT COUNT 291 130-400 x10-3/uL MEAN PLATELET VOLUME 10.3 7-11 fL NRBC % AUTO 0.0 <1 % NRBC # AUTO 0.00 <0.1 x10-3/uL COMPREHENSIVE METABOLIC PANE L Reviewed date:05/19/2022 09:23:20 AM Interpretation:SGOT- 44 from 46; SGPT 57 from 75 Performing Lab: Notes/Report: BUN 16 5-25 mg/dL CREAT 1.18 0.7-1.3 mg/dL GLOMERULAR FILTRATION RATE 74 >60 This eGFR result was calculated using the CKD-EPI 2020 Creatinine Equation SODIUM 136 135-145 mEq/L POTASSIUM 4.6 3.5-5.5 mmol/L CHLORIDE 98 96-110 mmol/L CO2 32 21-32 mmol/L ANION GAP 6 3-11 CALCIUM 10.3 8.5-10.5 mg/dL ALBUMIN 4.0 3.2-5.0 G/dL SGPT 57 10-60 U/L GLUCOSE 119 70-100 mg/dL Reference range applicable to fasting specimens only TOTAL PROTEIN 8.1 6.0-8.0 G/dL BILI,TOTAL 0.3 0.0-1.4 mg/dL SGOT 44 10-42 U/L ALK PHOS 90 42-121 U/L GLYCOHEMOGLOBIN PROFILE Reviewed date:05/19/2022 09:22:07 AM Interpretation:7.4 Performing Lab: Notes/Report: GLYCATED HEMOGLOBIN A1C 7.4 <6.5 % ESTIMATED AVERAGE GLUCOSE 166 LIPID PROFILE Reviewed date:05/19/2022 09:23:35 AM Interpretation:Triglycerides 408 Performing Lab: Notes/Report: CHOLESTEROL 157 0-200 mg/dL TRIGLYCERIDES 408 0-150 mg/dL HDL CHOLESTEROL 30 >40 mg/dL LDL CALCULATED 46 0-100 mg/dL TC-HDLC RATIO 5.2 0-4.4 mg/dL MICROALB/CREAT RATIO, RANDOM Reviewed date:05/19/2022 09:21:26 AM Interpretation:Negative Performing Lab: Notes/Report: CREATININE, RANDOM URINE 32 MICROALBUMIN, RANDOM 8.3 0.0-29.0 mg/L MICROALB/CRE RATIO RANDOM < 25.9 0.0-30.0 mg/G Blood Sugar/finger stick Reviewed date:08/08/2022 08:43:30 AM Interpretation:High 119 Performing Lab: Notes/Report: High 119 VITAMIN B12 Reviewed date:08/09/2022 03:08:09 PM Interpretation:1927 Performing Lab: Notes/Report: VITAMIN B12 1927 250-900 pg/mL CBC Reviewed date:08/09/2022 03:07:47 PM Interpretation:Normal Performing Lab: Notes/Report: WBC 5.7 4.8-10.8 x10-3/uL RBC 5.1 4.5-5.5 x10-6/uL HEMOGLOBIN 15.4 13.5-17.5 g/dL HEMATOCRIT 44.5 42-54 % MCV 87.9 79-98 fL MCH 30.4 27-32 pg MCHC 34.6 32-37 g/dL RDW 13.0 11-15 % PLT COUNT 327 130-400 x10-3/uL MEAN PLATELET VOLUME 10.3 7-11 fL NRBC % AUTO 0.0 <1 % NRBC # AUTO 0.00 <0.1 x10-3/uL COMPREHENSIVE METABOLIC PANE L Reviewed date:08/09/2022 03:09:31 PM Interpretation:High sgot& sglt; Calcium=high Performing Lab: Notes/Report: GLUCOSE 104 70-100 mg/dL Reference range applicable to fasting specimens only BUN 17 5-25 mg/dL CREAT 1.23 0.7-1.3 mg/dL GLOMERULAR FILTRATION RATE 70 >60 This eGFR result was calculated using the CKD-EPI 2020 Creatinine Equation SODIUM 136 135-145 mEq/L POTASSIUM 3.9 3.5-5.5 mmol/L CHLORIDE 97 96-110 mmol/L CO2 33 21-32 mmol/L ANION GAP 6 3-11 CALCIUM 10.9 8.5-10.5 mg/dL TOTAL PROTEIN 8.2 6.0-8.0 G/dL ALBUMIN 4.4 3.2-5.0 G/dL BILI,TOTAL 0.4 0.0-1.4 mg/dL SGOT 60 10-42 U/L SGPT 86 10-60 U/L ALK PHOS 83 42-121 U/L FERRITIN Reviewed date:08/09/2022 03:11:11 PM Interpretation:low normal Performing Lab: Notes/Report: FERRITIN 82 26-388 ng/mL GLYCOHEMOGLOBIN PROFILE Reviewed date:08/09/2022 03:10:50 PM Interpretation:7 from 7.4 Performing Lab: Notes/Report: GLYCATED HEMOGLOBIN A1C 7.0 <6.5 % ESTIMATED AVERAGE GLUCOSE 154 LIPID PROFILE Reviewed date:08/09/2022 03:10:36 PM Interpretation:improved triglycerides from 408 to 264 Performing Lab: Notes/Report: CHOLESTEROL 175 0-200 mg/dL TRIGLYCERIDES 264 0-150 mg/dL HDL CHOLESTEROL 29 >40 mg/dL LDL CALCULATED 94 0-100 mg/dL TC-HDLC RATIO 6.0 0-4.4 mg/dL THYROID PROFILE Reviewed date:08/09/2022 03:10:56 PM Interpretation:Normal Performing Lab: Notes/Report: TSH CASCADE 2.50 0.40-4.00 uIU/ml TREPONEMAL AB Reviewed date:08/09/2022 03:07:53 PM Interpretation:Negative Performing Lab: Notes/Report: TREPONEMAL AB NEGATIVE NEGATIVE LYME PROFILE Reviewed date:08/09/2022 03:08:15 PM Interpretation:Negative Performing Lab: Notes/Report: Note Original Ordering Provider: LEANNA SANTANA APRN [employer], a member of [address] [place] [address] [employer] - Lila Gamboa MD LYME DISEASE ANTIBODIES NEGATIVE NEGATIVE No laboratory evidence of infection with B. burgdorferi (Lyme disease). Negative results may occur in patients recently infected (<=14 days) with B. burgdorferi. If recent infection is suspected, repeat testing on a new sample collected in 7-14 days is recommended. Note Original Ordering Provider: LEANNA SANTANA APRN [employer], a member of [address] [address] [employer] - Lila Gamboa MD Blood Sugar/finger stick Reviewed date:01/09/2023 01:47:11 PM Interpretation:High 458, Reports had sugar cereal just prior Performing Lab: Notes/Report: High 458, Reports had sugar cereal just prior Blood Sugar/finger stick Reviewed date:04/03/2023 11:09:02 AM Interpretation:High 166 Performing Lab: Notes/Report: High 166 CBC Reviewed date:04/04/2023 02:12:02 PM Interpretation:Normal Performing Lab: Notes/Report: WBC 6.7 4.8-10.8 x10-3/uL RBC 4.7 4.5-5.5 x10-6/uL HEMOGLOBIN 14.4 13.5-17.5 g/dL HEMATOCRIT 42.0 42-54 % MCV 89.4 79-98 fL MCH 30.6 27-32 pg MCHC 34.3 32-37 g/dL RDW 12.2 11-15 % PLT COUNT 267 130-400 x10-3/uL MEAN PLATELET VOLUME 11.9 7-11 fL NRBC % AUTO 0.0 <1 % NRBC # AUTO 0.00 <0.1 x10-3/uL COMPREHENSIVE METABOLIC PANE L Reviewed date:04/05/2023 08:55:47 AM Interpretation:Abnormal Performing Lab: Notes/Report: GLUCOSE 169 70-100 mg/dL Reference range applicable to fasting specimens only BUN 21 5-25 mg/dL CREAT 1.47 0.7-1.3 mg/dL GLOMERULAR FILTRATION RATE 57 >60 This eGFR result was calculated using the CKD-EPI 2020 Creatinine Equation SODIUM 138 135-145 mEq/L POTASSIUM 3.5 3.5-5.5 mmol/L CHLORIDE 100 96-110 mmol/L CO2 29 21-32 mmol/L ANION GAP 9 3-11 CALCIUM 10.5 8.5-10.5 mg/dL TOTAL PROTEIN 8.3 6.0-8.0 G/dL ALBUMIN 4.3 3.2-5.0 G/dL BILI,TOTAL 0.3 0.0-1.4 mg/dL SGOT 44 10-42 U/L SGPT 62 10-60 U/L ALK PHOS 94 42-121 U/L GLYCOHEMOGLOBIN PROFILE Reviewed date:04/04/2023 02:12:14 PM Interpretation:High Performing Lab: Notes/Report: GLYCATED HEMOGLOBIN A1C 8.3 <6.5 % ESTIMATED AVERAGE GLUCOSE 192 PT/INR Reviewed date:04/04/2023 02:11:51 PM Interpretation:Normal Performing Lab: Notes/Report: PROTHROMBIN TIME 11.6 10.6-13.9 SEC INR 0.93 MICROALB/CREAT RATIO, RANDOM Reviewed date:04/04/2023 02:11:44 PM Interpretation:Normal Performing Lab: Notes/Report: CREATININE, RANDOM URINE 80 MICROALBUMIN, RANDOM 9.1 0.0-29.0 mg/L MICROALB/CRE RATIO RANDOM < 11.3 0.0-30.0 mg/G VITAMIN B12 Reviewed date:12/27/2022 10:37:44 AM Interpretation:High Performing Lab: Notes/Report: VITAMIN B12 1742 250-900 pg/mL CBC Reviewed date:12/27/2022 10:39:56 AM Interpretation:Normal Performing Lab: Notes/Report: WBC 6.6 4.8-10.8 x10-3/uL RBC 4.9 4.5-5.5 x10-6/uL HEMOGLOBIN 15.0 13.5-17.5 g/dL HEMATOCRIT 43.7 42-54 % MCV 89.7 79-98 fL MCH 30.8 27-32 pg MCHC 34.3 32-37 g/dL RDW 13.1 11-15 % PLT COUNT 234 130-400 x10-3/uL MEAN PLATELET VOLUME 11.2 7-11 fL NRBC % AUTO 0.0 <1 % NRBC # AUTO 0.00 <0.1 x10-3/uL COMPREHENSIVE METABOLIC PANE L Reviewed date:12/27/2022 10:39:41 AM Interpretation:ast/alt ratio0.63;high creatinine Performing Lab: Notes/Report: GLUCOSE 216 70-100 mg/dL Reference range applicable to fasting specimens only BUN 21 5-25 mg/dL CREAT 1.38 0.7-1.3 mg/dL GLOMERULAR FILTRATION RATE 61 >60 This eGFR result was calculated using the CKD-EPI 2020 Creatinine Equation SODIUM 138 135-145 mEq/L POTASSIUM 4.0 3.5-5.5 mmol/L CHLORIDE 100 96-110 mmol/L CO2 30 21-32 mmol/L ANION GAP 8 3-11 CALCIUM 10.4 8.5-10.5 mg/dL ALBUMIN 4.5 3.2-5.0 G/dL SGOT 64 10-42 U/L SGPT 101 10-60 U/L TOTAL PROTEIN 8.2 6.0-8.0 G/dL BILI,TOTAL 0.4 0.0-1.4 mg/dL ALK PHOS 108 42-121 U/L FERRITIN Reviewed date:12/27/2022 10:40:29 AM Interpretation:improved Performing Lab: Notes/Report: FERRITIN 122 26-388 ng/mL FOLATE Reviewed date:12/27/2022 10:37:51 AM Interpretation:High Performing Lab: Notes/Report: FOLATE > 20.0 2.8-17.0 ng/ml GLYCOHEMOGLOBIN PROFILE Reviewed date:12/27/2022 10:40:10 AM Interpretation:8.6 from 7 Performing Lab: Notes/Report: GLYCATED HEMOGLOBIN A1C 8.6 <6.5 % ESTIMATED AVERAGE GLUCOSE 200 HCV VIRAL LOAD Reviewed date:12/28/2022 12:08:10 PM Interpretation:Negative Performing Lab: Notes/Report: HCV VIRAL LOAD QUAL NOT DETECTED NOT DETECT. HCV RNA not detected, unable to report quantitative results LIPID PROFILE Reviewed date:12/27/2022 10:38:09 AM Interpretation:higher trig Performing Lab: Notes/Report: CHOLESTEROL 176 0-200 mg/dL TRIGLYCERIDES 369 0-150 mg/dL HDL CHOLESTEROL 25 >40 mg/dL LDL CALCULATED 78 0-100 mg/dL TC-HDLC RATIO 7.0 0-4.4 mg/dL TSH CASCADE Reviewed date:12/27/2022 10:40:17 AM Interpretation:Normal Performing Lab: Notes/Report: TSH CASCADE 3.20 0.40-4.00 uIU/ml FECAL GLOBIN BY IMMUNOCHEMIS TRY Reviewed date:01/24/2023 05:28:36 PM Interpretation:Negative Performing Lab:NL2, [facility] [id number] [facility] Caryl Maharaj Notes/Report: FASTING: UNKNOWN FECAL GLOBIN BY IMMUNOCHEMISTRY SEE NOTE FECAL GLOBIN BY IMMUNOCHEMISTRY Micro Number: [id number] Test Status: Final Specimen Source: Insure (tm) fobt test card Specimen Quality: Adequate Fecal Globin: Not Detected REASON FOR REFERRAL Reason [facility] [address] [facility] Phone: [phone] treat and evaluate tremors Diagnosis 1 Tremor, unspecified (R25.1) Referral Organization [facility] Referring Provider First Name Leanna Referring Provider Last Name Trevor Referring Provider Speciality Nurse Prac davidioner Referred Provider [facility], Neurology Referred Provider Specialty Neurology General Notes Alondra Ferreira 08/11/2022 03:37:43 PM > paperwork faxed awaiting appt date, Ania Tate 08/24/2022 10:59:02 AM >Appt obtained, client aware, Alondra Ferreira 11/16/2022 09:33:48 AM > can you see if pt attended and print note if yes, Amadou Navarro 11/16/2022 05:59:28 PM > Appears not to have shown up, Alondra Ferreira 11/24/2022 03:47:37 PM > pt requesting new appt to be scheduled, Alondra Ferreira 04/11/2023 01:27:54 PM > fax sent to check status of appt Referral Priority Routine Referral Appointment Date 03/15/2023 Reason due for diabetic eye care Diagnosis 1 Type 2 diabetes pepe itus with hyperglycemia (E11.65) Referral Organization [facility] Referring Provider First Name Leanna Referring Provider Last Name Trevor Referring Provider Speciality Nurse Paige sommer Referred Provider Josesito Stiles Referred Provider Specialty Supervisor [employer] General Notes Sonia Durant 11:11:54 AM > paperwork faxed., Sonia Durant 04/04/2023 01:01:26 PM > Ricky souza are not accepting new pt at the moment Referral Priority Routine Reason Pt -1 to [facility] clinic 3 visits/month x 12 months Referral Organization [facility] Referring Provider First Name Leanna Referring Provider Last Name Brownkatey Referring Provider Speciality Nurse Paige sommer Referred Provider PT, -1 Referral Priority Routine MEDICATIONS Medication SIG (Take, Route, Frequency, Duration) Notes Start Date End Date Status gabapentin 800 mg 1 tab(s) orally 3 times a day for 30 days This replaces 600 mg TID Active chlorthalidone 25 mg 1 tab(s) orally onc e a day for 90 days Active cloNIDine 0.1 mg 1 tab(s) orally 2 times a day as needed for anxiety for 30 days Active Goodsense Nicotine Gray 4 mg as directed by transmucosal administration every 32 hours as needed for 30 days Active Basaglar KwikPen 100 units/mL 20 units subcutaneously once a day May substitute depending on insurance Active Metoprolol Succinate ER 100 mg 1 tab(s) orally once a day for 90 days Active multivitamin Therapeutic Multiple Vitamins 1 tab(s) orally once a day Buying at store Active Advocate Pen Needle 33g 4mm, 100 use once daily for 90 days 01/09/2023 Active OLANZapine 20 mg 1 tab(s) orally once a day for 30 days Note increase in Olanzapine 02/22/2023 Active metFORMIN 1000 mg 1 tab(s) orally 2 times a day for 90 days Active Leader Nicotine Transdermal 14 mg/24 hr 1 PATCH transdermally once a day for 30 days 03/06/2023 Active methadone 10 mg/mL 127mg orally once a day BHN Active Jardiance 10 mg TAKE 1 TABLET BY MOUTH ONCE DAILY IN THE MORNING orally once a day (in the morning) Active fenofibrate 145 mg 1 tab(s) orally once a day may substitiute depending on insurance Active Doxepin Hydrochloride 150 mg 1 cap(s) orally once a day (at bedtime) for 30 days Active IMMUNIZATIONS Vaccine Route Administration Date Status Comme nts H1N1 Influenza Unknown 06/09/2009 Administered Tdap IM Intramuscular 07/14/2009 Administered PPD negative Unknown 06/10/2009 Administered was carrie negron @ [facility] Hep A/Hep B Unknown 04/16/2004 Administered Rep orted completed the series--cannot remember when he did this Influenza IM Intramuscular 02/20/2018 Administered PPSV 23 IM Intramuscular 06/20/2018 Administered Ndc 00 [id number] Influenza IM Intramuscular 03/20/2019 Administered Influenza IM Intramuscular 12/24/2019 Administered [facility] 49 [id number] PPSV 23 IM Intramuscular 02/26/2020 Administered Influenza IM Intramuscular 02/03/2021 Administered Moderna Covid-19 Vaccine Administration - First Dose (Single Dose 100MCG/0.5ML 1ST) IM Intramuscular 08/04/2020 Administered Moderna Covid-19 Vaccine Administration - Second Dose (Single Dose 100 MCG/0.5ML 2ND) IM Intramuscular 09/01/2020 Administered Influenza IM Intramuscular 02/22/2023 Administered SOCIAL HISTORY Tobacco Use: Social History Observation Description Date Details (start date - stop date) Former Smoker NA - NA Sex Assigned At : Social History Observation Description Sex Assigned At Unknown Tobacco Use Assessment MU Question Answer Notes What is your current smoking status? former smok er How long has it been since you last smoked? 1-3 months PROBLEMS Problem Type ICD Code Onset Dates Problem Status W/U Status Risk SNOMED Code Notes Problem Type 2 diabetes mellitus with diabetic chronic kidney disease (E11.22) Active confirmed Diabetic renal disease (819203341) Problem Type 2 diabetes mellitus with hyperglycemia (E11.65) Active confirmed Hyperglycemia due to type 2 diabetes mellitus (387972657291452 ) Problem Type 2 diabetes mellitus with other specified complication (E11.69) Active confirmed Complication du e to diabetes mellitus type 2 (30018736479021) Problem Obesity, unspecified (E66.9) Active confirmed Obesity (741064295) Problem Mixed hyperlipidemia (E78.2) Active confirmed Mixed hyperlipidemia (242967202) Problem Cocaine abuse, uncomplicated (F14.10) Active confirmed Cocaine abuse (45898866) Relapse 08/2020 Problem Nicotine dependence, cigarettes, uncomplicated (F17.210) Active confirmed Tobacco user (497338411) Problem Bipolar disorder, in partial remission, most recent episode depressed (F31.75) Active confirmed Depressed bipolar I disorder in remission (75239450) Problem Bipolar disorder, unspecified (F31.9) Active confirmed Bipolar disorde r (67557866) Problem Insomnia due to other mental disorder (F51.05) Active confirmed Insomnia disorder related to another mental disorder (49795752) Problem Mild cognitive impairment, so stated (G31.84) Active confirmed Mild cogniti ve disorder (358496707) Problem Essential (primary) hypertension (I10) Active confirmed Essential hypertension (98789678) Problem Long QT syndrome (I45.81) Active confirmed Long QT syndrom e (8742348) Problem Liver disease, unspecified (K76.9) Active confirmed Liver disease (587125064) annual liver U/S Problem Tremor, unspecified (R25.1) Active confirmed Tremor (98234692) Problem Localized edema (R60.0) Active confirmed Localized edema (0589261) Problem Panic disorder [episodic paroxysmal anxiety] (F41.0) Active confirmed Panic disor turner (660538207) Problem COVID-19 (U07.1) 022 Active confirmed COVID-19 (798213622) 08/09/21 Problem Body mass index [BMI] 36.0-36.9, adult (Z68.36) Active confirmed Body mass ind ex 35.00 to 39.99 (063874724709275 ) Problem Sheltered homelessness (Z59.01) Active confirmed Sheltered homelessness (748448281980925 ) Problem Mild cognitive impairment of uncertain or unknown etiology (G31.84) Active confirmed Mild cognitive disorder (899170072) Problem Opioid abuse, uncomplicated (F11.10) Active confirmed Opioid abuse (7610954) Relapse 08/2020 x 9 days. Problem Hyperlipidemia, unspecified (E78.5) Inactive confirmed Hyperlipidemia (67043642) VITAL SIGNS Temperature 97.3 degrees Fahrenheit 04/03/2023 Blood pressure diastolic 85 04/03/2023 Oximetry 95 04/03/2023 Height 67 in 04/03/2023 Blood pressure systolic 142 04/03/2023 Weight 232 lbs 04/03/2023 BMI 36.33 kg/m2 04/03/2023 PROCEDURES Procedure Date Ordered Date Performed Result Body Sit e EKG 12/12/2022 N/A EKG 08/08/2022 N/A EKG 01/09/2023 N/A EKG 03/29/2023 04/04/2023 NSR Encounters Encounter Location Date Provider Diagnosis [facility] [address] [place] [address] [facility] [id number] 04/19/2022 Margot Ospina [address] [id number] 04/25/2022 Leanna Santana Encounter for screening for infectious and parasitic diseases, unspecified Z11.9 and Type 2 diabetes mellitus with hyperglycemia E11.[address] [id number] 05/01/2022 Margot Ospnia [facility] [address] [place] [address] [place] [id number] 05/10/2022 [facility]ALTH [address] [place] [address] [place] [id number] 08/28/2022 Leanna Santana Encounter for screening for infectious and parasitic diseases, unspecified Z11.9 and Type 2 diabetes mellitus with hyperglycemia E11.[address] [id number] 09/01/2022 Frank Alarcon Encounter for screening for infectious and parasitic diseases, unspecified Z11.9 [facility] [address] [place] [address] [place] [id number] 09/[facility] [address] [id number] 12/12/2022 Eddieliza Brownionan Encounter for screening for infectious and parasitic diseases, unspecified Z11.9 ; Type 2 diabetes mellitus with hyperglycemia E11.65 ; Essential (primary) hypertension I10 ; Obesity, unspecified E66.9 ; Mixed hyperlipidemia E78.2 ; Long QT syndrome I45.81 ; Tremor, unspecified R25.1 and Liver disease, unspecified K76.[address] [id number] 01/30/2023 Frank Alarcon [facility] [address] [place] [address] [place] [id number] 02/01/2023 Frank Alarcon Bipolar disorder, unspecified F31.9 ; Type 2 diabetes mellitus with other specified complication E11.69 ; Panic disorder [episodic paroxysmal anxiety] F41.0 ; Tremor, unspecified R25.1 ; Opioid abuse, uncomplicated F11.10 and Encounter for screening for COVID-19 Z11.52 [facility] [address] [place] [address] [place] [id number] 03/22/2023 Frank Alarcon Encounter for screening for COVID-19 Z11.52 [facility] [address] [place] [address] [place] [id number] 05/12/2022 Frank Alarcon Panic disorder [episodic paroxysmal anxiety] F41.0 ; Bipolar disorder, in partial remission, most recent episode depressed F31.75 ; Opioid abuse, uncomplicated F11.10 and Cocaine abuse, uncomplicated F14.[address] [id number] 05/16/2022 Margot Ospina Counseling, unspecified Z71.9 and Bipolar disorder, unspecified F31.[address] [id number] 05/17/2022 Leanna Santana Encounter for screening for infectious and parasitic diseases, unspecified Z11.9 ; Type 2 diabetes mellitus with hyperglycemia E11.65 ; Essential (primary) hypertension I10 ; Hyperlipidemia, unspecified E78.5 ; Nicotine dependence, cigarettes, uncomplicated F17.210 ; Body mass index [BMI] 36.0-36.9, adult Z68.36 ; Sheltered homelessness Z59.01 ; Opioid abuse, uncomplicated F11.10 and Obesity, unspecified E66.[address] [id number] 05/30/2022 Margot Ospina Counseling, unspecified Z71.9 and Bipolar disorder, unspecified F31.[address] [id number] 06/07/2022 Leanna Santana Encounter for screening for infectious and parasitic diseases, unspecified Z11.9 ; Type 2 diabetes mellitus with hyperglycemia E11.65 ; Type 2 diabetes mellitus with other specified complication E11.69 ; Mixed hyperlipidemia E78.2 ; Body mass index [BMI] 36.0-36.9, adult Z68.36 ; Acute nasopharyngitis [common cold] J00 and Person consulting for explanation of examination or test findings Z71.[address] [id number] 06/09/2022 Frank Alarcon Panic disorder [episodic paroxysmal anxiety] F41.0 ; Bipolar disorder, in partial remission, most recent episode depressed F31.75 ; Opioid abuse, uncomplicated F11.10 ; Type 2 diabetes mellitus with other specified complication E11.69 ; Encounter for screening for infectious and parasitic diseases, unspecified Z11.9 and Cocaine abuse, uncomplicated F14.[address], [place] [id number] 06/20/2022 Mollie Ospina Counseling, unspecified Z71.9 and Bipolar disorder, unspecified F31.[address] [id number] 07/07/2022 Frank Alarcon Panic disorder [episodic paroxysmal anxiety] F41.0 ; Bipolar disorder, in partial remission, most recent episode depressed F31.75 ; Opioid abuse, uncomplicated F11.10 ; Type 2 diabetes mellitus with other specified complication E11.69 ; Cocaine abuse, uncomplicated F14.10 and Encounter for screening for infectious and parasitic diseases, unspecified Z11.[address] [id number] 07/12/2022 Mollie Ospina Counseling, unspecified Z71.9 and Bipolar disorder, unspecified F31.[address] [place] [id number] 08/03/2022 Mollie Ospina Counseling, unspecified Z71.9 and Bipolar disorder, unspecified F31.[address] [id number] 08/04/2022 Frank Alarcon Panic disorder [episodic paroxysmal anxiety] F41.0 ; Bipolar disorder, in partial remission, most recent episode depressed F31.75 ; Opioid abuse, uncomplicated F11.10 ; Type 2 diabetes mellitus with other specified complication E11.69 ; Cocaine abuse, uncomplicated F14.10 and Encounter for screening for infectious and parasitic diseases, unspecified Z11.[address] [id number] 08/08/2022 Leanna Santana Encounter for screening for infectious and parasitic diseases, unspecified Z11.9 ; Tremor, unspecified R25.1 ; Type 2 diabetes mellitus with hyperglycemia E11.65 ; Essential (primary) hypertension I10 ; Type 2 diabetes mellitus with other specified complication E11.69 ; Mixed hyperlipidemia E78.2 ; Body mass index [BMI] 35.0-35.9, adult Z68.35 ; Long QT syndrome I45.81 and Mild cognitive impairment, so stated G31.[address] [place] [id number] 08/11/2022 Frank Alarcon Bipolar disorder, unspecified F31.9 and Other specified counseling Z71.[address] [place] [id number] 08/22/2022 Mollie Ospina Counseling, unspecified Z71.9 and Bipolar disorder, unspecified F31.[address] [place] [id number] 08/29/2022 Leanna Santana Person consulting for explanation of examination or test findings Z71.2 ; Type 2 diabetes mellitus with hyperglycemia E11.65 ; Abnormal results of liver function studies R94.5 ; Tremor, unspecified R25.1 and Mixed hyperlipidemia E78.[address] [id number] 09/06/2022 Frank Alarcon Bipolar disorder, unspecified F31.9 ; Panic disorder [episodic paroxysmal anxiety] F41.0 ; Tremor, unspecified R25.1 ; Opioid abuse, uncomplicated F11.10 and Encounter for screening for infectious and parasitic diseases, unspecified Z11.[address] [place] [id number] 09/27/2022 Mollie Ospina Counseling, unspecified Z71.9 and Bipolar disorder, unspecified F31.[address] [id number] 10/03/2022 Frank Alarcon Bipolar disorder, unspecified F31.9 ; Panic disorder [episodic paroxysmal anxiety] F41.0 ; Tremor, unspecified R25.1 ; Opioid abuse, uncomplicated F11.10 and Encounter for screening for infectious and parasitic diseases, unspecified Z11.[address] [place] [id number] 10/18/2022 Mollie Ospina Counseling, unspecified Z71.9 and Bipolar disorder, unspecified F31.[address] [place] [id number] 11/09/2022 Mollie Ospina Counseling, unspecified Z71.9 and Bipolar disorder, unspecified F31.[address] [id number] 11/14/2022 Frank Alarcon Bipolar disorder, unspecified F31.9 ; Panic disorder [episodic paroxysmal anxiety] F41.0 ; Tremor, unspecified R25.1 ; Opioid abuse, uncomplicated F11.10 and Encounter for screening for infectious and parasitic diseases, unspecified Z11.9 [facility] [place] [id number] 12/13/2022 Mollie Ospina Counseling, unspecified Z71.9 and Bipolar disorder, unspecified F31.[address] [id number] 12/26/2022 Florforrest Dorian Type 2 diabetes mellitus with other specified complication E11.69 ; Bipolar disorder, unspecified F31.9 ; Panic disorder [episodic paroxysmal anxiety] F41.0 ; Tremor, unspecified R25.1 ; Encounter for screening for infectious and parasitic diseases, unspecified Z11.9 ; Opioid abuse, uncomplicated F11.10 and Encounter for screening, unspecified Z13.[address] [place] [id number] 12/27/2022 Mollie Ospina Counseling, unspecified Z71.9 and Bipolar disorder, unspecified F31.[address] [id number] 01/09/2023 Eddieliza Casionan Type 2 diabetes mellitus with hyperglycemia E11.65 ; Encounter for screening for infectious and parasitic diseases, unspecified Z11.9 ; Encounter for general adult medical examination with abnormal findings Z00.01 ; Essential (primary) hypertension I10 ; Long QT syndrome I45.81 and Mixed hyperlipidemia E78.[address] [place] [id number] 01/12/2023 Florforrest Dorian Type 2 diabetes mellitus with other specified complication E11.69 ; Bipolar disorder, unspecified F31.9 ; Panic disorder [episodic paroxysmal anxiety] F41.0 ; Tremor, unspecified R25.1 ; Opioid abuse, uncomplicated F11.10 and Encounter for screening for infectious and parasitic diseases, unspecified Z11.[address] [place] [id number] 01/23/2023 Mollie Ospina Counseling, unspecified Z71.9 and Bipolar disorder, unspecified F31.[address] [place] [id number] 02/08/2023 Eddieliza Casionan Type 2 diabetes mellitus with hyperglycemia E11.65 [facility] [address] [place] [address] [place] [id number] 02/09/2023 Frank Alarcon Bipolar disorder, in partial remission, most recent episode depressed F31.75 ; Type 2 diabetes mellitus with hyperglycemia E11.65 ; Essential (primary) hypertension I10 ; Opioid abuse, uncomplicated F11.10 ; Obesity, unspecified E66.9 ; Tremor, unspecified R25.1 ; Insomnia due to other mental disorder F51.05 and Mixed hyperlipidemia E78.2 [facility] [place] [id number] 02/12/2023 Mollie Ospina Counseling, unspecified Z71.9 and Bipolar disorder, unspecified F31.9 [facility] [place] [id number] 02/22/2023 Eddieliza Casionan Type 2 diabetes mellitus with hyperglycemia E11.[address] [id number] 02/22/2023 Frank Alarcon Bipolar disorder, in partial remission, most recent episode depressed F31.75 ; Type 2 diabetes mellitus with hyperglycemia E11.65 ; Essential (primary) hypertension I10 ; Opioid abuse, uncomplicated F11.10 ; Obesity, unspecified E66.9 ; Tremor, unspecified R25.1 ; Insomnia due to other mental disorder F51.05 ; Mixed hyperlipidemia E78.2 ; Encounter for screening for COVID-19 Z11.52 and Encounter for immunization Z23 [facility] [place] [id number] 03/06/2023 Mollie Ospina Counseling, unspecified Z71.9 and Bipolar disorder, unspecified F31.[address] [id number] 04/03/2023 Eddieliza Casionan Encounter for screening for COVID-19 Z11.52 ; Encounter for other preprocedural examination Z01.818 ; Type 2 diabetes mellitus with hyperglycemia E11.65 ; Sheltered homelessness Z59.01 ; Encounter for preprocedural laboratory examination Z01.812 ; Dental caries, unspecified K02.9 ; Nicotine dependence, cigarettes, uncomplicated F17.210 ; Essential (primary) hypertension I10 and Type 2 diabetes mellitus with diabetic chronic kidney disease E11.22 [facility] [address] [place] [address] [place] [id number] 04/03/2023 Margot Ospina Counseling, unspecified Z71.9 and Bipolar disorder, unspecified F31.9 [facility] [address] [place] [address] [place] [id number] 04/04/2023 Eddieliza Casionan Type 2 diabetes mellitus with hyperglycemia E11.65 and Person consulting for explanation of examination or test findings Z71.2 [facility] [address] [place] [address] [place] [id number] 04/12/2023 Margot Ospina Counseling, unspecified Z71.9 and Bipolar disorder, unspecified F31.[address] [id number] 05/05/2022 Frank Alarcon [address] [id number] 05/10/[address] [id number] 05/30/2022 Eddieliza Casionan [address] [id number] 06/29/2022 Frank Alarcon Bipolar disorder, in partial remission, most recent episode depressed F31.[address] [id number] 07/03/2022 Eddieliza Casionan Essential (primary) hypertension I10 [address] [id number] 07/25/2022 Eddieliza Casionan Type 2 diabetes mellitus with hyperglycemia E11.[address] [id number] 08/03/2022 Eddieliza Casionan [address] [id number] 08/08/2022 Frank Alarcon [address] [id number] 08/22/2022 Frank Alarcon [address] [id number] 08/24/2022 Eddieliza Casionan Essential (primary) hypertension I10 [facility] [address] [place] [address] [id number] 09/21/2022 Eddieliza Casionan Type 2 diabetes mellitus with hyperglycemia E11.[address] [id number] 01/10/2023 Eddieliza Casionan Mixed hyperlipidemia E78.2 and Type 2 diabetes mellitus with hyperglycemia E11.[address] [id number] 02/12/2023 Florforrest RichardsonDorian [address] [id number] 03/02/2023 Eddieliza Casionan [address] [id number] 03/05/2023 Eddieliza Casionan [address] [id number] 03/06/2023 Eddieliza Casionan [address] [id number] 03/22/2023 Eddieliza Casionan Type 2 diabetes mellitus with hyperglycemia E11.65 and Essential (primary) hypertension I10 [address] [id number] 03/29/2023 Eddieliza Casionan Encounter for preprocedural laboratory examination Z01.[address] [id number] 04/04/2023 Eddieliza Casionan [address] [id number] 04/12/2023 Eddieliza Casionan ASSESSMENTS Encounter Date Diagnosis Assessment Notes Treatment Notes Treatment Clinical Notes 04/25/2022 Encounter for screening for infectious and parasitic diseases, unspecified (ICD-10 - Z11.9) Covid screening is negative. Discussed in detail with patient how to practice social distancing by avoiding public spaces and crowds now, wearing a mask in public to keep nose and mouth covered, and washing hands frequently especially before eating and after using the bathroom. Return to clinic if you develop any symtpoms of concern to be rescreened or go to the emergency room if you are having concerning symptoms for COVID-19. 08/28/2022 Encounter for screening for infectious and parasitic diseases, unspecified (ICD-10 - Z11.9) Covid screening is negative. Discussed in detail with patient how to practice social distancing by avoiding public spaces and crowds now, wearing a mask in public to keep nose and mouth covered, and washing hands frequently especially before eating and after using the bathroom. Return to clinic if you develop any symtpoms of concern to be rescreened or go to the emergency room if you are having concerning symptoms for COVID-19. 09/01/2022 Encounter for screening for infectious and parasitic diseases, unspecified (ICD-10 - Z11.9) Covid screening is negative. Discussed in detail with patient how to practice social distancing by avoiding public spaces and crowds now, wearing a mask in public to keep nose and mouth covered, and washing hands frequently especially before eating and after using the bathroom. Return to clinic if you develop any symtpoms of concern to be rescreened or go to the emergency room if you are having concerning symptoms for COVID-19. 12/12/2022 Encounter for screening for infectious and parasitic diseases, unspecified (ICD-10 - Z11.9) Covid screening is negative. Discussed in detail with patient how to practice social distancing by avoiding public spaces and crowds now, wearing a mask in public to keep nose and mouth covered, and washing hands frequently especially before eating and after using the bathroom. Return to clinic if you develop any symtpoms of concern to be rescreened or go to the emergency room if you are having concerning symptoms for COVID-19. 02/01/2023 Bipolar disorder, unspecified (ICD-10 - F31.9) Reviewed hx of psychiatric illness, treatment received and medication trials with client. Discussed current medications as to indications, actions and side effects. Reviewed risks benefits of treatment versus non treatment. Medication education provided. Patient given opportunity to ask questions. Patient gives informed consent to proceed with prescribed treatment. 1. Mass PSYCHODRAMATIST reviewed: see Exam 2. Medication: Decrease in lamictal to see if tremor decreases with taper off medication. Consideration for addition of Depakote as has efficacy for rapid cycling and faster response rate and better adverse effect profile than [place]. Clt also maintained on diuretic which may preclude use of lithium. See HPI . May switch to Latuda dn Dc Olanzapine. Latuda more metabolically friendly especially in contecxt of increasing HGB A1C and starting insulin. 3. Cont psychotherapy: Has f/u appt Hugh Ospina [facility] 4. Labs/Procedures: EKG ordered needs to complete. Jordana check on QTc interval as on methadone and Doxepin. Last EKG 11/11/21 prolonged QRT, Qtc interval 488, see scanned docs. 5. Exercise/Nutrition: sleep, regular exercise and nutrition all have a direct impact on our health and well-being. Keeping them in balance is especially important when we face stressful times in our lives. Eat balanced meals, get 6-8 hours of sleep a night, daily walking as able. 6. Understands plan and verbalizes agreement, allowed time for clarifying questions. 03/22/2023 Encounter for screening for COVID-19 (ICD-10 - Z11.52) Covid screening is negative. Discussed in detail with patient how to practice social distancing by avoiding public spaces and crowds now, wearing a mask in public to keep nose and mouth covered, and washing hands frequently especially before eating and after using the bathroom. Return to clinic if you develop any symtpoms of concern to be rescreened or go to the emergency room if you are having concerning symptoms for COVID-19. 05/12/2022 Bipolar disorder, in partial remission, most recent episode depressed (ICD-10 - F31.75) Reviewed hx of psychiatric illness, treatment received and medication trials with client. Discussed current medications as to indications, actions and side effects. Reviewed risks benefits of treatment versus non treatment. Medication education provided. Patient given opportunity to ask questions. Patient gives informed consent to proceed with prescribed treatment. 1. Mass PSYCHODRAMATIST reviewed: gabapentin appropriate RF sent 2. Medications: Effexor d/c'd. Lamictal up to 150 mg. Lamictal slow upward titration. Cont other meds as above. 3. Cont psychotherapy- remains in recovery 4. Labs/Procedures: none for review, stes BP improved now that he is off Venlafaxine, BP have been lower. Plans to review HTN and BP readings with PCP Aracelis Ferguson 05/17/22. 5. Exercise/Nutrition: sleep, regular exercise and nutrition all have a direct impact on our health and well-being. Keeping them in balance is especially important when we face stressful times in our lives. Eat balanced meals, get 6-8 hours of sleep a night, daily walking as able. 6. Understands plan and verbalizes agreement, allowed time for clarifying questions. Lamotrigine is a good choice for maintenance tx of Bipolar D/O, especially to prevent depressive episodes and has good side effect profile. S/E reviewed, most common include but are not limited to: dizziness, headache, nausea, sedation benign rash (7%) . Serious but rare skin reactions, majority of cases occur in first 8 weeks of treatment . Discontinue medication at first sign of rash and do not re-initiate unless rash is clearly not drug related. Rare cases of Napier Rangel syndrome. Slow titration schedule recommended to decrease risk of Napier Rangel syndrome. 05/12/2022 Panic disorder [episodic paroxysmal anxiety] (ICD-10 - F41.0) 05/16/2022 Counseling, unspecified (ICD-10 - Z71.9) Social distancing, hand washing, wearing a mask in public places, and not touching the face were strategies discussed to avoid maximino COVID-19. Symptoms of COVID-19 were reviewed and advised to promptly report concerning symtpoms to arrange for assessment and possible testing. 05/17/2022 Type 2 diabetes mellitus with hyperglycemia (ICD-10 - E11.65) reports walking more and watching diet 05/17/2022 Encounter for screening for infectious and parasitic diseases, unspecified (ICD-10 - Z11.9) Covid screening is negative. Discussed in detail with patient how to practice social distancing by avoiding public spaces and crowds now, wearing a mask in public to keep nose and mouth covered, and washing hands frequently especially before eating and after using the bathroom. Return to clinic if you develop any symtpoms of concern to be rescreened or go to the emergency room if you are having concerning symptoms for COVID-19. 05/30/2022 Counseling, unspecified (ICD-10 - Z71.9) Social distancing, hand washing, wearing a mask in public places, and not touching the face were strategies discussed to avoid maximino COVID-19. Symptoms of COVID-19 were reviewed and advised to promptly report concerning symtpoms to arrange for assessment and possible testing. 06/07/2022 Type 2 diabetes mellitus with hyperglycemia (ICD-10 - E11.65) A1C 7.4 from 6.8 Engaged discussion on maintaining healthy lifestyle: healthy diet low on fats and simple carbohydrates, and regular physical exercise of at least 30 minutes daily 06/07/2022 Encounter for screening for infectious and parasitic diseases, unspecified (ICD-10 - Z11.9) COVID-19 screening is negative. Discussed in detail with patient how to practice social distancing by avoiding public spaces and crowds now, wearing a mask in public to keep nose and mouth covered, and washing hands frequently especially before eating and after using the bathroom. Return to clinic if you develop any symptoms of concern to be rescreened or go to the emergency room if you are having concerning symptoms for COVID-19. 06/09/2022 Bipolar disorder, in partial remission, most recent episode depressed (ICD-10 - F31.75) Reviewed hx of psychiatric illness, treatment received and medication trials with client. Discussed current medications as to indications, actions and side effects. Reviewed risks benefits of treatment versus non treatment. Medication education provided. Patient given opportunity to ask questions. Patient gives informed consent to proceed with prescribed treatment. 1. Mass PSYCHODRAMATIST reviewed: see exam 2. Medications: Lamictal at 150 mg. Denies adverese medication side effects, no rash. Decrease in Zyprexa see assessment. May also consider decrease in Doxepin at future date, continue to monitor for sedation and enuresis. 3. Cont psychotherapy- remains in recovery 4. Labs/Procedures: none for review 5. Exercise/Nutrition: sleep, regular exercise and nutrition all have a direct impact on our health and well-being. Keeping them in balance is especially important when we face stressful times in our lives. Eat balanced meals, get 6-8 hours of sleep a night, daily walking as able. 6. Understands plan and verbalizes agreement, allowed time for clarifying questions. 06/09/2022 Panic disorder [episodic paroxysmal anxiety] (ICD-10 - F41.0) 06/20/2022 Counseling, unspecified (ICD-10 - Z71.9) Social distancing, hand washing, wearing a mask in public places, and not touching the face were strategies discussed to avoid maximino COVID-19. Symptoms of COVID-19 were reviewed and advised to promptly report concerning symtpoms to arrange for assessment and possible testing. 07/07/2022 Bipolar disorder, in partial remission, most recent episode depressed (ICD-10 - F31.75) Reviewed hx of psychiatric illness, treatment received and medication trials with client. Discussed current medications as to indications, actions and side effects. Reviewed risks benefits of treatment versus non treatment. Medication education provided. Patient given opportunity to ask questions. Patient gives informed consent to proceed with prescribed treatment. 1. Mass PSYCHODRAMATIST reviewed: see exam 2. Medications: Lamictal at 200 mg. Denies adverese medication side effects, no rash. Cont Zyprexa 15 mg see assessment. May also consider decrease in Doxepin at future date, continue to monitor for sedation and enuresis. Changed to new pharmacy that he can get to easily. Called [facility] to make aware ogf change to [facility] and cancelled recent refills. 3. Cont psychotherapy- remains in recovery 4. Labs/Procedures: none for review 5. Exercise/Nutrition: sleep, regular exercise and nutrition all have a direct impact on our health and well-being. Keeping them in balance is especially important when we face stressful times in our lives. Eat balanced meals, get 6-8 hours of sleep a night, daily walking as able. 6. Understands plan and verbalizes agreement, allowed time for clarifying questions. 07/07/2022 Panic disorder [episodic paroxysmal anxiety] (ICD-10 - F41.0) 07/12/2022 Counseling, unspecified (ICD-10 - Z71.9) Social distancing, hand washing, wearing a mask in public places, and not touching the face were strategies discussed to avoid maximino COVID-19. Symptoms of COVID-19 were reviewed and advised to promptly report concerning symtpoms to arrange for assessment and possible testing. 08/03/2022 Counseling, unspecified (ICD-10 - Z71.9) Social distancing, hand washing, wearing a mask in public places, and not touching the face were strategies discussed to avoid maximino COVID-19. Symptoms of COVID-19 were reviewed and advised to promptly report concerning symtpoms to arrange for assessment and possible testing. 08/04/2022 Bipolar disorder, in partial remission, most recent episode depressed (ICD-10 - F31.75) Reviewed hx of psychiatric illness, treatment received and medication trials with client. Discussed current medications as to indications, actions and side effects. Reviewed risks benefits of treatment versus non treatment. Medication education provided. Patient given opportunity to ask questions. Patient gives informed consent to proceed with prescribed treatment. 1. Mass PSYCHODRAMATIST reviewed: see exam 2. Medications: Lamictal at 200 mg. Denies adverese medication side effects, no rash. Cont Zyprexa 15 mg see assessment. May also consider decrease in Doxepin at future date, continue to monitor for sedation and enuresis. Changed back to [facility] nursing staff called to make them aware. 3. Cont psychotherapy- remains in recovery 4. Labs/Procedures: none for review 5. Exercise/Nutrition: sleep, regular exercise and nutrition all have a direct impact on our health and well-being. Keeping them in balance is especially important when we face stressful times in our lives. Eat balanced meals, get 6-8 hours of sleep a night, daily walking as able. 6. Understands plan and verbalizes agreement, allowed time for clarifying questions. 08/04/2022 Panic disorder [episodic paroxysmal anxiety] (ICD-10 - F41.0) 08/08/2022 Tremor, unspecified (ICD-10 - R25.1) Reports symptoms are bothersome. His Psyche provider will gradually decrease his doxepin Tremors may be familial since he reports his mother had tremors as well He requests referral to a neurologist 08/08/2022 Encounter for screening for infectious and parasitic diseases, unspecified (ICD-10 - Z11.9) COVID-19 screening is negative. Discussed in detail with patient how to practice social distancing by avoiding public spaces and crowds now, wearing a mask in public to keep nose and mouth covered, and washing hands frequently especially before eating and after using the bathroom. Return to clinic if you develop any symptoms of concern to be rescreened or go to the emergency room if you are having concerning symptoms for COVID-19. 08/11/2022 Bipolar disorder, unspecified (ICD-10 - F31.9) Reviewed hx of psychiatric illness, treatment received and medication trials with client. Discussed current medications as to indications, actions and side effects. Reviewed risks benefits of treatment versus non treatment. Medication education provided. Patient given opportunity to ask questions. Patient gives informed consent to proceed with prescribed treatment. 1. Mass PSYCHODRAMATIST reviewed: see Exam 2. Medications: doxepin slow taper see HPI, cont other mds as ordered 3. Cont psychotherapy: 4. Labs/Procedures: none at present 5. Exercise/Nutrition: sleep, regular exercise and nutrition all have a direct impact on our health and well-being. Keeping them in balance is especially important when we face stressful times in our lives. Eat balanced meals, get 6-8 hours of sleep a night, daily walking as able. 6. Understands plan and verbalizes agreement, allowed time for clarifying questions. 08/11/2022 Other specified counseling (ICD-10 - Z71.89) Discussed in detail with patient how to practice social distancing and reduce risk of maximino spencer virus. This included avoiding public spaces, crowds, washing hands frequently, and limiting visitors at this time. Patient was encouraged wash hand frequently, cough into their elbow, and contact the clinic if they develop cough/SOB/Fever or have direct contact with someone with these symptoms. 08/22/2022 Counseling, unspecified (ICD-10 - Z71.9) Social distancing, hand washing, wearing a mask in public places, and not touching the face were strategies discussed to avoid maximino COVID-19. Symptoms of COVID-19 were reviewed and advised to promptly report concerning symtpoms to arrange for assessment and possible testing. 08/29/2022 Type 2 diabetes mellitus with hyperglycemia (ICD-10 - E11.65) A1C improved will stop B12 then restart as needed 08/29/2022 Person consulting for explanation of examination or test findings (ICD-10 - Z71.2) Reviewed results of recent diagnostic testing with client. Future plan of action discussed with from results of diagnostic testing. 09/06/2022 Bipolar disorder, unspecified (ICD-10 - F31.9) Reviewed hx of psychiatric illness, treatment received and medication trials with client. Discussed current medications as to indications, actions and side effects. Reviewed risks benefits of treatment versus non treatment. Medication education provided. Patient given opportunity to ask questions. Patient gives informed consent to proceed with prescribed treatment. 1. Mass PSYCHODRAMATIST reviewed: see Exam 2. Medications: Doxepin back to 150 at HS. RF as appropriate on other medications. 3. Cont psychotherapy: s f/u appt [facility]sp[facility] 4. Labs/Procedures: EKG ordered needs to complete to check QTc interval as on methadone and Doxepin. 5. Exercise/Nutrition: sleep, regular exercise and nutrition all have a direct impact on our health and well-being. Keeping them in balance is especially important when we face stressful times in our lives. Eat balanced meals, get 6-8 hours of sleep a night, daily walking as able. 6. Understands plan and verbalizes agreement, allowed time for clarifying questions. 09/06/2022 Panic disorder [episodic paroxysmal anxiety] (ICD-10 - F41.0) 09/27/2022 Counseling, unspecified (ICD-10 - Z71.9) Social distancing, hand washing, wearing a mask in public places, and not touching the face were strategies discussed to avoid maximino COVID-19. Symptoms of COVID-19 were reviewed and advised to promptly report concerning symtpoms to arrange for assessment and possible testing. 10/03/2022 Bipolar disorder, unspecified (ICD-10 - F31.9) Reviewed hx of psychiatric illness, treatment received and medication trials with client. Discussed current medications as to indications, actions and side effects. Reviewed risks benefits of treatment versus non treatment. Medication education provided. Patient given opportunity to ask questions. Patient gives informed consent to proceed with prescribed treatment. 1. Mass PSYCHODRAMATIST reviewed: see Exam 2. Medications: Doxepin back to 150 at HS. RF as appropriate on other medications. 3. Cont psychotherapy: Has f/u appt [facility] 4. Labs/Procedures: EKG ordered needs to complete to check QTc interval as on methadone and Doxepin. He has not completed yet. ast EKG 11/11/21 prolonged QRT, Qtc interval 488, see scanned docs. 5. Exercise/Nutrition: sleep, regular exercise and nutrition all have a direct impact on our health and well-being. Keeping them in balance is especially important when we face stressful times in our lives. Eat balanced meals, get 6-8 hours of sleep a night, daily walking as able. 6. Understands plan and verbalizes agreement, allowed time for clarifying questions. 10/03/2022 Panic disorder [episodic paroxysmal anxiety] (ICD-10 - F41.0) 10/18/2022 Counseling, unspecified (ICD-10 - Z71.9) Social distancing, hand washing, wearing a mask in public places, and not touching the face were strategies discussed to avoid maximino COVID-19. Symptoms of COVID-19 were reviewed and advised to promptly report concerning symtpoms to arrange for assessment and possible testing. 11/09/2022 Counseling, unspecified (ICD-10 - Z71.9) Social distancing, hand washing, wearing a mask in public places, and not touching the face were strategies discussed to avoid maximino COVID-19. Symptoms of COVID-19 were reviewed and advised to promptly report concerning symtpoms to arrange for assessment and possible testing. 11/14/2022 Bipolar disorder, unspecified (ICD-10 - F31.9) Reviewed hx of psychiatric illness, treatment received and medication trials with client. Discussed current medications as to indications, actions and side effects. Reviewed risks benefits of treatment versus non treatment. Medication education provided. Patient given opportunity to ask questions. Patient gives informed consent to proceed with prescribed treatment. 1. Mass PSYCHODRAMATIST reviewed: see Exam 2. Medications: . RF as appropriate on other medications. Future considertaion to go down on Doxeoin see assessment 3. Cont psychotherapy: Has f/u appt [facility] 4. Labs/Procedures: EKG ordered needs to complete to check QTc interval as on methadone and Doxepin. He has not completed yet. Last EKG 11/11/21 prolonged QRT, Qtc interval 488, see scanned docs. 5. Exercise/Nutrition: sleep, regular exercise and nutrition all have a direct impact on our health and well-being. Keeping them in balance is especially important when we face stressful times in our lives. Eat balanced meals, get 6-8 hours of sleep a night, daily walking as able. 6. Understands plan and verbalizes agreement, allowed time for clarifying questions. 11/14/2022 Panic disorder [episodic paroxysmal anxiety] (ICD-10 - F41.0) Practice coping skills. 12/13/2022 Counseling, unspecified (ICD-10 - Z71.9) Social distancing, hand washing, wearing a mask in public places, and not touching the face were strategies discussed to avoid maximino COVID-19. Symptoms of COVID-19 were reviewed and advised to promptly report concerning symtpoms to arrange for assessment and possible testing. 12/26/2022 Type 2 diabetes mellitus with other specified complication (ICD-10 - E11.69) Followed by PCP at [facility]. 12/26/2022 Bipolar disorder, unspecified (ICD-10 - F31.9) Reviewed hx of psychiatric illness, treatment received and medication trials with client. Discussed current medications as to indications, actions and side effects. Reviewed risks benefits of treatment versus non treatment. Medication education provided. Patient given opportunity to ask questions. Patient gives informed consent to proceed with prescribed treatment. 1. Mass PSYCHODRAMATIST reviewed: see Exam 2. Medication: RFs sent as above. Decrease in lamictal to see if tremor decreases with taper off medication. Consideration for addition of Depakote as has efficacy for rapid cycling and faster response rate and better adverse effect profile than [place]. Clt also maintained on diuretic which may preclude use of lithium. 3. Cont psychotherapy: Has f/u appt [facility] Osp[facility] 4. Labs/Procedures: EKG ordered needs to complete. Jordana check on QTc interval as on methadone and Doxepin. Last EKG 11/11/21 prolonged QRT, Qtc interval 488, see scanned docs. 5. Exercise/Nutrition: sleep, regular exercise and nutrition all have a direct impact on our health and well-being. Keeping them in balance is especially important when we face stressful times in our lives. Eat balanced meals, get 6-8 hours of sleep a night, daily walking as able. 6. Understands plan and verbalizes agreement, allowed time for clarifying questions. 12/27/2022 Counseling, unspecified (ICD-10 - Z71.9) Social distancing, hand washing, wearing a mask in public places, and not touching the face were strategies discussed to avoid maximino COVID-19. Symptoms of COVID-19 were reviewed and advised to promptly report concerning symtpoms to arrange for assessment and possible testing. 01/09/2023 Type 2 diabetes mellitus with hyperglycemia (ICD-10 - E11.65) elevated A1C Lantus 10 units administered in the LUQ; pt tolerated well. Educated pt to the correct dosing and administration of Lantus; pt was able to demonstrate back effectively a good teach back. Instructed pt to call the office or stop by with any questions or concerns re: Glucose monitoring or Insulin administration. CB 01/09/2023 Encounter for screening for infectious and parasitic diseases, unspecified (ICD-10 - Z11.9) COVID-19 screening is negative. Discussed in detail with patient how to practice social distancing by avoiding public spaces and crowds now, wearing a mask in public to keep nose and mouth covered, and washing hands frequently especially before eating and after using the bathroom. Return to clinic if you develop any symptoms of concern to be rescreened or go to the emergency room if you are having concerning symptoms for COVID-19. 01/12/2023 Type 2 diabetes mellitus with other specified complication (ICD-10 - E11.69) Followed by PCP at [facility]. 01/12/2023 Bipolar disorder, unspecified (ICD-10 - F31.9) Reviewed hx of psychiatric illness, treatment received and medication trials with client. Discussed current medications as to indications, actions and side effects. Reviewed risks benefits of treatment versus non treatment. Medication education provided. Patient given opportunity to ask questions. Patient gives informed consent to proceed with prescribed treatment. 1. Mass PSYCHODRAMATIST reviewed: see Exam 2. Medication: Decrease in lamictal to see if tremor decreases with taper off medication. Consideration for addition of Depakote as has efficacy for rapid cycling and faster response rate and better adverse effect profile than [place]. Clt also maintained on diuretic which may preclude use of lithium. See HPI . May switch to Latuda dn Dc Olanzapine. Latuda more metabolically friendly especially in contecxt of increasing HGB A1C and starting insulin. 3. Cont psychotherapy: Has f/u appt [facility]sp[facility] 4. Labs/Procedures: EKG ordered needs to complete. Jordana check on QTc interval as on methadone and Doxepin. Last EKG 11/11/21 prolonged QRT, Qtc interval 488, see scanned docs. 5. Exercise/Nutrition: sleep, regular exercise and nutrition all have a direct impact on our health and well-being. Keeping them in balance is especially important when we face stressful times in our lives. Eat balanced meals, get 6-8 hours of sleep a night, daily walking as able. 6. Understands plan and verbalizes agreement, allowed time for clarifying questions. 01/23/2023 Counseling, unspecified (ICD-10 - Z71.9) Social distancing, hand washing, wearing a mask in public places, and not touching the face were strategies discussed to avoid maximino COVID-19. Symptoms of COVID-19 were reviewed and advised to promptly report concerning symtpoms to arrange for assessment and possible testing. 02/08/2023 Type 2 diabetes mellitus with hyperglycemia (ICD-10 - E11.65) reports no side effect luann Torres. Encouraged to continue checking blood sugar especially before breakfast then will reviit in 2 weeks 02/09/2023 Bipolar disorder, in partial remission, most recent episode depressed (ICD-10 - F31.75) Telehealth requested by client Provider: Clinic Client: ricardoiciric Advocate: none Minutes: 30 minutes Reviewed hx of psychiatric illness, treatment received and medication trials with client. Discussed current medications as to indications, actions and side effects. Reviewed risks benefits of treatment versus non treatment. Medication education provided. Patient given opportunity to ask questions. Patient gives informed consent to proceed with prescribed treatment. 1. Mass PSYCHODRAMATIST reviewed: see Exam 2. Medications:as above. Note inc in gabapentin see Assessment 3. Cont psychotherapy: Has F/U appt with hSakir TODD next week 4. Labs/Procedures: followong with PCP elevated HgbA1C 5. Exercise/Nutriti on: sleep, regular exercise and nutrition all have a direct impact on our health and well-being. Keeping them in balance is especially important when we face stressful times in our lives. Eat balanced meals, get 6-8 hours of sleep a night, daily walking as able. 6. Understands plan and verbalizes agreement, allowed time for clarifying questions. 02/12/2023 Counseling, unspecified (ICD-10 - Z71.9) Social distancing, hand washing, wearing a mask in public places, and not touching the face were strategies discussed to avoid maximino COVID-19. Symptoms of COVID-19 were reviewed and advised to promptly report concerning symtpoms to arrange for assessment and possible testing. 02/22/2023 Type 2 diabetes mellitus with hyperglycemia (ICD-10 - E11.65) average 200 blood sugar before breakfast. denies SE from Insulin 02/22/2023 Bipolar disorder, in partial remission, most recent episode depressed (ICD-10 - F31.75) Reviewed hx of psychiatric illness, treatment received and medication trials with client. Discussed current medications as to indications, actions and side effects. Reviewed risks benefits of treatment versus non treatment. Medication education provided. Patient given opportunity to ask questions. Patient gives informed consent to proceed with prescribed treatment. 1. Mass PSYCHODRAMATIST reviewed: see Exam 2. Medications:as above. Note inc in Olanzapine back to past dose. 3. Cont psychotherapy: Has F/U appt with Shakir Ospina [facility] next week 4. Labs/Procedures: followong with PCP elevated HgbA1C 5. Exercise/Nutrition: sleep, regular exercise and nutrition all have a direct impact on our health and well-being. Keeping them in balance is especially important when we face stressful times in our lives. Eat balanced meals, get 6-8 hours of sleep a night, daily walking as able. 6. Understands plan and verbalizes agreement, allowed time for clarifying questions. 03/06/2023 Counseling, unspecified (ICD-10 - Z71.9) Social distancing, hand washing, wearing a mask in public places, and not touching the face were strategies discussed to avoid maximino COVID-19. Symptoms of COVID-19 were reviewed and advised to promptly report concerning symtpoms to arrange for assessment and possible testing. 04/03/2023 Encounter for other preprocedural examination (ICD-10 - Z01.818) Risk assessment completed. Average risk for teeth extraction with alveoloplasty Advised to stop metformin 2 days prior to procedure to avoid lactic acidosis Advised to take 1/2 of his long acting insulin on the night prior to the procedure EKG - NSR 04/03/2023 Encounter for screening for COVID-19 (ICD-10 - Z11.52) COVID-19 screening is negative. Discussed in detail with patient how to practice social distancing by avoiding public spaces and crowds now, wearing a mask in public to keep nose and mouth covered, and washing hands frequently especially before eating and after using the bathroom. Return to clinic if you develop any symptoms of concern to be rescreened or go to the emergency room if you are having concerning symptoms for COVID-19. 04/03/2023 Counseling, unspecified (ICD-10 - Z71.9) Social distancing, hand washing, wearing a mask in public places, and not touching the face were strategies discussed to avoid maximino COVID-19. Symptoms of COVID-19 were reviewed and advised to promptly report concerning symtpoms to arrange for assessment and possible testing. 04/04/2023 Type 2 diabetes mellitus with hyperglycemia (ICD-10 - E11.65) A1C remains high Will increase Basaglar. Discussed symptoms of hypoglycemia. Encouraged to have mornig light breakfast to prevent hypoglycemia due to not having breakfast. 04/04/2023 Person consulting for explanation of examination or test findings (ICD-10 - Z71.2) Reviewed results of recent diagnostic testing with client. Future plan of action discussed with from results of diagnostic testing. 04/12/2023 Bipolar disorder, unspecified (ICD-10 - F31.9) Clt instructed to call crisis as he is with friends/supports at the [facility] with supports there in place. Clt feels he would like to call himself and will let the crisis team know that I am available for supporting information-given the clinic line number as that is where I am today. Clt states he will call back after he calls crisis now with the f/u plan. This provider called the [facility] [place] crisis line (as [facility] covers [place], not [facility] anymore) and client put on alert with team; while on phone with crisis team they made me aware that Clt was on a call with other bulb farmworker. Collaborating information provider to crisis team on client's behalf. [facility] crisis [phone]. They informed me client originally called [facility] crisis and the [facility] crisis team did a warm hand off to [facility] and they were evaluating him at the present time. They are aware they can call me for any f/u information needed. Clt aware of 05/01/23 f/u appt scheduled with Hugh Osp[facility], for supportive counseling services. Aware of rescheduled appt scheduled with Debbie Alarcon [facility], for med eval 04/24/23. Clt given [facility] and crisis contact information. Clt understands and agrees with plan. 04/12/2023 Counseling, unspecified (ICD-10 - Z71.9) Social distancing, hand washing, wearing a mask in public places, and not touching the face were strategies discussed to avoid maximino COVID-19. Symptoms of COVID-19 were reviewed and advised to promptly report concerning symtpoms to arrange for assessment and possible testing. 06/29/2022 Bipolar disorder, in partial remission, most recent episode depressed (ICD-10 - F31.75) 07/03/2022 Essential (primary) hypertension (ICD-10 - I10) 07/25/2022 Type 2 diabetes mellitus with hyperglycemia (ICD-10 - E11.65) 08/24/2022 Essential (primary) hypertension (ICD-10 - I10) 09/21/2022 Type 2 diabetes mellitus with hyperglycemia (ICD-10 - E11.65) 01/10/2023 Mixed hyperlipidemia (ICD-10 - E78.2) 03/22/2023 Type 2 diabetes mellitus with hyperglycemia (ICD-10 - E11.65) 03/29/2023 Encounter for preprocedural laboratory examination (ICD-10 - Z01.812) 04/25/2022 Type 2 diabetes mellitus with hyperglycemia (ICD-10 - E11.65) 08/28/2022 Type 2 diabetes mellitus with hyperglycemia (ICD-10 - E11.65) 12/12/2022 Type 2 diabetes mellitus with hyperglycemia (ICD-10 - E11.65) 02/01/2023 Type 2 diabetes mellitus with other specified complication (ICD-10 - E11.69) Followed by PCP at [facility]. 05/12/2022 Opioid abuse, uncomplicated (ICD-10 - F11.10) Relapse 08/2020 x 9 days. REcent [facility] stay now back at [facility]. 05/16/2022 Bipolar disorder, unspecified (ICD-10 - F31.9) 05/30/22 f/u appt scheduled with [facility]sp[facility], for supportive counseling services.[facility]. Clt to remain engaged in sober/recovery supports, attend meetings, [facility]. Grief support and counseling provided. Discussed triggers and avoidance of triggers. Clt given HS and crisis contact information. Clt understands and agrees with plan. 05/17/2022 Essential (primary) hypertension (ICD-10 - I10) BP stable Has own BP machine for years and reading as low as SBP 90. Will obtain a new cuff for him 05/30/2022 Bipolar disorder, unspecified (ICD-10 - F31.9) 06/20/22 f/u appt scheduled with PEREZ Agee, for supportive counseling services.[facility] 06/09/22. Clt states he is aware of his 06/07/22 phone f/u call with PCP, Aracelis. Clt to remain engaged in sober/recovery supports, attend meetings, [facility]. Discussed triggers and avoidance of triggers. Clt given [facility] and crisis contact information. Clt understands and agrees with plan. Telephne encounter sent to Aracelis regarding Clt's concerns over his sugar readings. 06/07/2022 Type 2 diabetes mellitus with other specified complication (ICD-10 - E11.69) other complications: elevated BMI, Hyperlipidemia 06/09/2022 Opioid abuse, uncomplicated (ICD-10 - F11.10) Relapse 08/2020 x 9 days. Recent [facility] stay, maintaining recovery. 06/20/2022 Bipolar disorder, unspecified (ICD-10 - F31.9) 07/12/22 f/u appt scheduled with Hugh [facility]sp[facility], for supportive counseling services.[facility] 07/07/22. Clt to remain engaged in sober/recovery supports, attend meetings, [facility]. Discussed triggers and avoidance of triggers. Clt given [facility] and crisis contact information. Clt understands and agrees with plan. 07/07/2022 Opioid abuse, uncomplicated (ICD-10 - F11.10) Relapse 08/2020 x 9 days. Recent [facility] stay, maintaining recovery. 07/12/2022 Bipolar disorder, unspecified (ICD-10 - F31.9) 08/03/22 f/u appt scheduled with [facility], for supportive counseling services.[facility], for [facility] 08/04/22. Clt to remain engaged in sober/recovery supports, attend meetings, [facility]. Discussed triggers and avoidance of triggers. Clt given [facility] and crisis contact information. Clt understands and agrees with plan. 08/03/2022 Bipolar disorder, unspecified (ICD-10 - F31.9) 08/22/22 f/u appt scheduled with [facility], for supportive counseling services.[facility] for med eval 08/04/22. Clt to remain engaged in sober/recovery supports, attend meetings, [facility]. Discussed triggers and avoidance of triggers. Aware of 08/28/22 appt with Aracelis Santana, PCP, and telephone encounter sent to PCP regarding his neurological concerns. Clt given [facility] and crisis contact information. Clt understands and agrees with plan. 08/04/2022 Opioid abuse, uncomplicated (ICD-10 - F11.10) Relapse 08/2020 x 9 days. Recent [facility] stay, maintaining recovery. 08/08/2022 Type 2 diabetes mellitus with hyperglycemia (ICD-10 - E11.65) A1C improved from 7.4 to 7 08/22/2022 Bipolar disorder, unspecified (ICD-10 - F31.9) 09/19/22 f/u appt scheduled with Hugh Ospina [facility], for supportive counseling services.[facility] for [facility] 09/01/22. Med updated as he is back to taking Doxepin 150 mg. Clt to remain engaged in sober/recovery supports, attend meetings, [facility]. Discussed triggers and avoidance of triggers. Aware of 08/28/22 appt with Aracelis Santana, PCP, and telephone encounter sent to PCP regarding his neurological concerns. Clt given [facility] and crisis contact information. Clt understands and agrees with plan. 08/29/2022 Abnormal results of liver function studies (ICD-10 - R94.5) LFT increased with SGPT almost doubled and B12 tripled denies alcohol or any other substance use Will stop crestor then reassess in 3 months 09/06/2022 Tremor, unspecified (ICD-10 - R25.1) Has neuro evaluation in September. Encouraged to reduce caffeine use. R/O essential tremor vs medication induced, note tremor prior to starting Lamictal. Also maintained on olanzapine does not appear Parkinsonian in nature. Olanzapine less likely to cause Parkinsonism. Also note we have decreased dose effectively. 09/27/2022 Bipolar disorder, unspecified (ICD-10 - F31.9) 10/18/22 f/u appt scheduled with Hugh [facility], for supportive counseling services.[facility] 10/03/22. Clt to remain engaged in sober/recovery supports, attend meetings, [facility]. Discussed triggers and avoidance of triggers. Aware of 12/12/22 appt with Aracelis Santana, [facility]. Clt given HS and crisis contact information. Clt understands and agrees with plan. 10/03/2022 Tremor, unspecified (ICD-10 - R25.1) Has neuro evaluation in October. Encouraged to reduce caffeine use. R/O essential tremor vs medication induced, note tremor prior to starting Lamictal. Also maintained on olanzapine does not appear Parkinsonian in nature. Olanzapine less likely to cause Parkinsonism. Also note we have decreased dose effectively. 10/18/2022 Bipolar disorder, unspecified (ICD-10 - F31.9) 11/09/22 f/u appt scheduled with PEREZ Agee, for supportive counseling services.Appt scheduled with LAKESHA Simmons, for med eval 11/14/22. Clt to remain engaged in sober/recovery supports, attend meetings, [facility]. Discussed triggers and avoidance of triggers. Aware of 12/12/22 appt with LEAH Walker. Clt given [facility] and crisis contact information. Clt understands and agrees with plan. 11/09/2022 Bipolar disorder, unspecified (ICD-10 - F31.9) 12/14 f/u appt scheduled with PEREZ Agee, for supportive counseling services. Aware of appt scheduled with LAKESHA Simmons, for med eval 11/14/22. Clt to remain engaged in sober/recovery supports, attend meetings, [facility]. Discussed triggers and avoidance of triggers. Aware of 12/12/22 appt with LEAH Walker. Clt given [facility] and crisis contact information. Clt understands and agrees with plan. 11/14/2022 Tremor, unspecified (ICD-10 - R25.1) Needs to R/S neuro eval, asked DEION Tate to call neur office for clt. Encouraged to reduce caffeine use, lower stress. R/O essential tremor vs medication induced, note clt had tremor prior to starting Lamictal. Also maintained on olanzapine does not appear Parkinsonian in nature. Olanzapine less likely to cause Parkinsonism. Also note we have decreased Olanzapine dose effectively. 12/13/2022 Bipolar disorder, unspecified (ICD-10 - F31.9) 12/27/22 f/u appt scheduled with PEREZ Agee, for supportive counseling services. Aware of appt scheduled with LAKESHA Simmons, for med eval 12/26/22. Clt to remain engaged in sober/recovery supports, attend meetings, [facility]. Discussed triggers and avoidance of triggers. Aware of appt with LEAH Walker 01/09/23. Insightful conversation during session today regarding sx's of Clt's DX of Bipolar. Clt acknowledges increased stressors that may be triggering his depression-increase d medical concerns, increased missed medial appts. Clt states he has rescheduled his PCP and neuro appts and states he has made a commitment to attending these as he realizes his medical concerns are a source of anxiety for him. Clt given HSH and crisis contact information. Clt understands and agrees with plan. 12/26/2022 Panic disorder [episodic paroxysmal anxiety] (ICD-10 - F41.0) Practice coping skills. 12/27/2022 Bipolar disorder, unspecified (ICD-10 - F31.9) 01/23/23-11:30AMf/u appt scheduled with Hugh Ospina LM, for supportive counseling services. A[facility] of [facility], for med [facility] 01/12/23. Clt to remain engaged in sober/recovery supports, attend meetings, [facility]. Discussed triggers and avoidance of triggers. Aware of appt with Aracelis Santana, PCP 01/09/23. Insightful conversation during session today regarding sx's of Clt's DX of Bipolar. Clt acknowledges increased stressors that may be triggering his depression-increase d medical concerns, increased missed medial appts. Clt states he has rescheduled his PCP and neuro appts and states he has made a commitment to attending these as he realizes his medical concerns are a source of anxiety for him. Clt given HS and crisis contact information. Clt understands and agrees with plan. 01/09/2023 Encounter for general adult medical examination with abnormal findings (ICD-10 - Z00.01) Annual PE performed. General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
[2023-04-12 17:13] LABS: Acetaminophen LAB < 3 mcg/mL (<30); Salicylate < 5.0 mg/dL (15-30)
[2023-04-12 17:27] VITALS: RESP 16
--- NOTE | 2023-04-12 20:08 | HE.PHANOTE ---
RE: methadone VIRGEN Meier, 127mg 26 empty take home bottles. Patient has been doubling doses, 254mg for last 10 days, last taken 04/12/23 @0900.
[2023-04-12] MEDS: Nicotine Polacrilex 2 MG GUM 4 MG BUCCAL ×2 (21:32→22:54)
[2023-04-12] MEDS: Acetaminophen 325 MG TABLET 650 MG PO (22:55)
[2023-04-12] MEDS: hydrOXYzine HCL 25 MG TABLET PO (22:56)
[2023-04-12] MEDS: Nicotine 21 MG PATCH.TD24 TRANSDERMA (23:06)
[2023-04-12] MEDS: cloNIDine HCL 0.1 MG TABLET PO (23:13)
[2023-04-12] MEDS: OLANZapine 10 MG TABLET 20 MG PO (23:13)
[2023-04-12] MEDS: Doxepin HCl 25 MG CAPSULE 150 MG PO (23:13)
--- NOTE | 2023-04-13 00:04 | PC.ADMIT ---
Mat is a 52yr old male who presents to from the ED pod for increased anxiety and depression with thoughts of suicide for the past week. He is pleasant, calm, cooperative. He states he has no drive /motivation. He states he doesnt shower half the time and has no ambition to do anything so he sleeps. He states he has been over-doing his methadone lately which makes him sleep even more. The precipitating event was a phone call stating that his disability was going to be discontinued. He states he doesnt know what to do and is overwhelmed. He is currently on disability d/t mental health. His skin is intact, he appears neat in hospital clothes. He appears anxious/nervous shaking hands and feet. He is independent in ADL's. He is currently going to and lives in a sober house in [place]. He admits to binging [place]na drinking 24 beers and using cocaine. He admits to previously using Heroine and had a problem with percocet for a long time. Tox screen positive for Cocaine. He states no domestic issues or trauma in his past. He states he is non violent and is open to this experience. He expresses hope and speaks of the future. He smokes 2 packs of cigarettes and currently has a nicotine patch on his left arm. The patient was shown around the unit and all questions answered at this time. He is safe on 15 min. checks and will continue to monitor his sleep and behavior overnight and continue with the behavioral health team in the morning.
[2023-04-13 00:41] VITALS: BP 156/88; PULSE 79; RESP 18; TEMP 36.7; O2SAT 92
[2023-04-13 08:00] VITALS: BP 120/65; PULSE 87; RESP 16; TEMP 36.3; O2SAT 96
[2023-04-13] MEDS: Nicotine 21 MG PATCH.TD24 TRANSDERMA (09:19)
[2023-04-13] MEDS: methADONE HCl 20 MG/2 ML ORAL.CONC 127 MG PO (09:20)
[2023-04-13] MEDS: SITagliptin Phosphate 25 MG TABLET PO (09:23)
[2023-04-13] MEDS: hydroCHLOROthiazide 25 MG TABLET PO (09:23)
[2023-04-13] MEDS: metFORMIN HCl 1,000 MG TABLET 1000 MG PO ×2 (09:23→20:20)
[2023-04-13] MEDS: Metoprolol Succinate ER 100 MG TAB.ER.24H PO (09:23)
[2023-04-13] MEDS: Nicotine Polacrilex 2 MG GUM 4 MG BUCCAL ×2 (09:26→12:32)
--- NOTE | 2023-04-13 09:49 | HO.PSYADMNOT ---
HPI Date of Service: 04/13/23 Chief Complaint: depression/ si Sources of Information: patient interviewed, chart reviewed and crisis/core team assessment reviewed HPI Subjective Notes: Lu Warning and Conditional Voluntary Narrative: Patient is a 52-year-old male with history of bipolar II depression alcohol use disorder in sustained remission presents for worsening depression, SI in the face of medication changes and 1 day relapse of alcohol. Patient reports that he has been sober for the past year other than this 1 day of alcohol and cocaine use. He says that his mood and depression were overall well treated on Effexor however he became hypertensive which only resolved when Effexor was tapered and discontinued about a year ago; Lamictal briefly helped but caused excessive tremors and also discontinue. He says since then he reports slowly worsening depressive symptoms that have became severe over the past few weeks, patient citing diminished interest, low energy, poor concentration, low appetite, excessive sleepiness and then the beginning of passive SI and then SI with vague plan to overdose on medication. Patient tried to increase his methadone dose to see if that would help his mood which he did not. On Jonah, feeling dejected, he drink and used cocaine 1 time. Feeling guilty and angry at himself, Patient's SI increased and so he called his therapist and then crisis for help. Patient reports that despite this brief relapse, he did continue to drink which he usually does. Patient denies any recent manic episodes; denies history of trauma or AVH. Past Psychiatric History: No past psychiatric admissions No history of self-harm or suicide attempts Reports history of manic episodes that last for about 3 days where he is excited, likely talking fast, not needing sleep, going on shopping sprees which have occurred during periods of sobriety; patient was started on Zyprexa which have helped keep away manic episodes Past medication trials: Zyprexa Seroquel Lamictal: Cause tremors Effexor: Caused hypertension Paxil, Prozac, Zoloft: All good for anxiety but did not do much for depression Imipramine: Thinks was helpful; not sure why got off Medical Evaluation Reviewed: Hospitalist Tommy Pending [facility] Medical History (Updated 04/13/23 @ 16:25 by Eric Hammond MD) Alcohol use disorder Bipolar II disorder Diabetes Family History: Deferred Social History: Patient lives alone Report housing currently stable Substance History: Started drinking alcohol when he was 15 years old until he was 22 years old; sober from [age] years old, attending meetings, working. However over the past 2 decades patient has been drinking alcohol daily, with brief periods of sobriety, until this past year Trauma History: Denied Diagnostics Vital Signs (24Hr): Vital Signs - 24 hr 04/12/23 13:29 04/12/23 17:27 04/13/23 00:41 Temperature 96.9 F 98.0 F Pulse Rate 122 H 79 Respiratory Rate 19 16 18 Blood Pressure 162/96 H 156/88 H Pulse Oximetry 93 92 Oxygen Delivery Method Room Air Room Air BMI result Body Mass Index 35.9 Labs 04/12/23 15:22 04/12/23 15:22 Labs: Laboratory Results - last 48 hr 04/12/23 04/12/23 15:22 15:26 WBC 9.6 RBC 4.96 Hgb 15.0 Hct 44.9 MCV 90.5 MCH 30.2 MCHC 33.4 RDW 12.7 Plt Count 275 D MPV 10.4 Immature Gran % (Auto) 0.3 Neut % (Auto) 72.5 Lymph % (Auto) 18.1 L Prentiss % (Auto) 4.4 Eos % (Auto) 4.1 H Baso % (Auto) 0.6 Lymph # (Auto) 1.7 Prentiss # (Auto) 0.4 Eos # (Auto) 0.4 Baso # (Auto) 0.1 Abs Immat Gran (auto) 0.03 Absolute Neuts (auto) 7.0 Absolute Nucleated RBC 0.000 Nucleated RBC % (auto) 0.0 Sodium 139 Potassium 4.1 Chloride 100 Carbon Dioxide 28 Anion Gap 15 BUN 13 Creatinine 1.35 Estim Creat Clear Calc 72.7 Estimated GFR 55 Random Glucose 120 H Calcium 10.5 H D Magnesium 2.2 Total Bilirubin 0.4 AST 36 ALT 40 Alkaline Phosphatase 52 Total Protein 8.6 H Albumin 4.8 Urine Color Yellow Urine Appearance Clear Urine pH 7.0 Ur Specific [place] >= 1.030 H Urine Protein Negative Urine Glucose (UA) >=1000 H Urine Ketones Negative Urine Blood Moderate (2+) H Urine Nitrite Negative Ur Leukocyte Esterase Negative Urine RBC >20 H Urine WBC 0-5 Ur Squamous Epith Cells 0-2 Urine Bacteria None Seen Hyaline Casts 0-2 Salicylates < 5.0 L Urine Opiates Screen Not Detected Urine Fentanyl Screen Not Detected Acetaminophen < 3 Ur Barbiturates Screen Not Detected Ur Phencyclidine Scrn Not Detected Ur Amphetamines Screen Not Detected U Benzodiazepines Scrn Not Detected Urine Cocaine Screen POSITIVE H U Marijuana (THC) Screen Not Detected Ethyl Alcohol < 10 COVID-19 ([facility]ANNA) Negative COVID-19 Clin Com See Note Meds/Allergies Meds Home Medications Medication Instructions Recorded Confirmed Type blood-glucose meter #1 ea 04/20/20 04/13/23 History clonidine HCl 0.1 mg tablet 0.1 mg PO BID PRN Anxiety 04/20/20 04/12/23 History doxepin 150 mg capsule 150 mg PO BEDTIME 04/20/20 04/12/23 History metformin 1,000 mg tablet 1,000 mg PO BID 04/20/20 04/12/23 History olanzapine 20 mg tablet 20 mg PO BEDTIME 04/20/20 04/12/23 History sitagliptin phosphate 25 mg tablet 1 tab PO DAILY 07/02/21 04/12/23 History (Januvia) chlorthalidone 25 mg tablet 25 mg PO DAILY 04/12/23 04/12/23 History metoprolol succinate 100 mg 100 mg PO DAILY 04/12/23 04/12/23 History tablet,extended release 24 hr olanzapine 20 mg PO ONCE 04/12/23 04/12/23 History Allergies Allergies Allergy/AdvReac Type Severity Reaction Status Date / Time No Known Allergies Allergy Verified 04/12/23 13:28 Mental Status Exam Mental Status Exam Narrative: Pt is alert and oriented; behavior is cooperative, friendly and calm; patient is not in distress; dressed in casual attire, bald, adequate hygiene; mood is described as depressed and affect congruent, downcast; eye contact appropriate; Speech is normal rate, volume and prosody and not pressured; bilateral hand tremor which patient says is chronic and worse with anxiety; otherwise some psychomotor retardation present; thought process is organized and goal directed; Thought content is on dealing with depression, tx; otherwise pertinent to relevant topics and without any delusional content, paranoid ideations or grandiosity; currently denies any SI/no HI. There is no evidence of perceptual disturbance and denies AVH. Patients insight and judgment impaired but improving Assessment & Plan Assessment & Plan (1) Bipolar II disorder: Status: Acute Code(s): F31.81 - Bipolar II disorder (2) Alcohol use disorder: Status: Acute Code(s): F10.90 - Alcohol use, unspecified, uncomplicated Plan HPI: Patient is a 52-year-old male with history of bipolar II depression alcohol use disorder in sustained remission presents for worsening depression, SI in the face of medication changes and 1 day relapse of alcohol. Patient reports that he has been sober for the past year other than this 1 day of alcohol and cocaine use. He says that his mood and depression were overall well treated on Effexor however he became hypertensive which only resolved when Effexor was tapered and discontinued about a year ago; Lamictal briefly helped but caused excessive tremors and also discontinue. He says since then he reports slowly worsening depressive symptoms that have became severe over the past few weeks, patient citing diminished interest, low energy, poor concentration, low appetite, excessive sleepiness and then the beginning of passive SI and then SI with vague plan to overdose on medication. Patient tried to increase his methadone dose to see if that would help his mood which he did not. On Jonah, feeling dejected, he drink and used cocaine 1 time. Feeling guilty and angry at himself, Patient's SI increased and so he called his therapist and then crisis for help. Patient reports that despite this brief relapse, he did continue to drink which he usually does. Patient denies any recent manic episodes; denies history of trauma or AVH. No past psychiatric admissions No history of self-harm or suicide attempts Reports history of manic episodes that last for about 3 days where he is excited, likely talking fast, not needing sleep, going on shopping sprees which have occurred during periods of sobriety; patient was started on Zyprexa which have helped keep away manic episodes Impression: Bipolar depression with hypomanic episodes; patient's depression moderately well treated with Effexor which unfortunately caused hypertension; patient currently depressed but other than 1 day relapse, has remained sober despite months of depressed mood. Discussed medication options including lithium and Latuda, reviewing risks/side effects, including synergistic risk when combined with the Zyprexa, and patient wants to try Latuda. Plan: CV Q 15 minute checks Continue home medications Patient also on Lantus 20 mg q.h.s. Will start Latuda 20 mg at dinner time; will likely need to titrate; may need prior authorization Patient educated on: diagnosis, medication risk/benefits, substance abuse and therapeutic strategies Informed Consent: understands Reason for continued inpatient stay Substantial Risk for: rapid decompensation Statement Statement: I have reviewed the history and physical and performed a pertinent examination on my patient. No changes have occurred unless specified. If the History and Physical was not performed prior to admission, the Hospitalist's service will be consulted for completing the admission physical. Time Spent With Patient Time: Total time managing care of this patient today ____ minutes.
[2023-04-13 10:02] LABS: Glucose, Whole Blood 245 mg/dL (60-115)
[2023-04-13] MEDS: Gabapentin 400 MG CAPSULE 800 MG PO ×3 (10:02→20:20)
[2023-04-13 12:14] LABS: Glucose, Whole Blood 164 mg/dL (60-115)
[2023-04-13] MEDS: Nicotine Polacrilex Lozenge 4 MG LOZENGE BUCCAL ×3 (14:22→20:30)
[2023-04-13 17:14] LABS: Glucose, Whole Blood 121 mg/dL (60-115)
[2023-04-13 18:00] VITALS: BP 139/74; PULSE 78; TEMP 36.4; O2SAT 92
[2023-04-13] MEDS: Lurasidone HCl 20 MG TABLET PO (18:00)
[2023-04-13 20:18] LABS: Glucose, Whole Blood 144 mg/dL (60-115)
[2023-04-13] MEDS: Doxepin HCl 25 MG CAPSULE 150 MG PO (20:19)
[2023-04-13] MEDS: OLANZapine 10 MG TABLET 20 MG PO (20:20)
[2023-04-13] MEDS: Insulin Glargine,Hum.rec.anlog 100 UNIT/ML 10 ML VIAL 20 UNIT SUBCUT (20:22)
[2023-04-14 08:15] LABS: Glucose, Whole Blood 149 mg/dL (60-115)
[2023-04-14 08:31] VITALS: BP 158/92; PULSE 75; RESP 16; TEMP 36.5; O2SAT 95
[2023-04-14] MEDS: Nicotine 21 MG PATCH.TD24 TRANSDERMA (08:36)
[2023-04-14] MEDS: Acetaminophen 325 MG TABLET 650 MG PO ×2 (08:36→19:54)
[2023-04-14] MEDS: Gabapentin 400 MG CAPSULE 800 MG PO ×3 (08:37→20:47)
[2023-04-14] MEDS: hydroCHLOROthiazide 25 MG TABLET PO (08:37)
[2023-04-14] MEDS: SITagliptin Phosphate 25 MG TABLET PO (08:37)
[2023-04-14] MEDS: metFORMIN HCl 1,000 MG TABLET 1000 MG PO ×2 (08:37→20:47)
[2023-04-14] MEDS: Nicotine Polacrilex Lozenge 4 MG LOZENGE BUCCAL ×5 (08:38→19:54)
[2023-04-14] MEDS: Metoprolol Succinate ER 100 MG TAB.ER.24H PO (08:38)
[2023-04-14] MEDS: methADONE HCl 20 MG/2 ML ORAL.CONC 127 MG PO (08:38)
[2023-04-14 12:22] LABS: Glucose, Whole Blood 155 mg/dL (60-115)
[2023-04-14 17:41] LABS: Glucose, Whole Blood 103 mg/dL (60-115)
[2023-04-14] MEDS: Lurasidone HCl 20 MG TABLET PO (17:46)
[2023-04-14 18:50] VITALS: BP 156/87; PULSE 75
[2023-04-14] MEDS: cloNIDine HCL 0.1 MG TABLET PO (18:55)
[2023-04-14] MEDS: OLANZapine 5 MG TABLET PO (18:55)
[2023-04-14] MEDS: OLANZapine 10 MG TABLET 20 MG PO (20:47)
[2023-04-14] MEDS: Doxepin HCl 25 MG CAPSULE 150 MG PO (20:48)
[2023-04-14] MEDS: Insulin Glargine,Hum.rec.anlog 100 UNIT/ML 10 ML VIAL 20 UNIT SUBCUT (21:12)
[2023-04-14] MEDS: Sodium Chloride 0.65 % Nasal 44 ML SPRBTL 1 SPRAY NOSTRIL-B (22:02)
--- NOTE | 2023-04-14 23:02 | P.PNPSI_ITS ---
Subjective Subjective Date of Service: 04/14/23 Reason For Visit: depression/ si Interim History: Patient was intermittently visible on the unit. Superficially bright on contact, but otherwise appears depressed and keeps to self. Pleasant. No behavioral issues. Reports his right ear is plugged up endorses nasal congestion since [place], asks about being seen by ENT. Has hx of sinus infections and feels he is developing an infection. Currently afebrile. Is agreeable to using saline mist. Otherwise denies any issues. He is here for depression and SI. He did not sleep well last night on account of blocked ear. Denies any plan or intent currently. Denies AH, VH. HI. He is med compliant and denies any issues. Medication Compliance: Yes Side effects from medications: No Attending Groups: Yes Review of Systems Acute medical concerns: No Mental Status Exam Mental Status Exam Narrative: Alert, oriented, in no acute distress. Calm, cooperative, engaged. Hand tremor b/l, ?TD. No tics noted. No psychomotor agitation or neurovegetative retardation. Eye contact maintained. Mood depressed, affect constricted. Speech normal. Thought process linear, coherent. Thought content related to stressors, transient hopelessness, denies SI or HI. No paranoia or delusional content elicited. No evidence of psychosis. Insight and judgment impaired. Diagnostics Vital Signs (24Hr): Vital Signs - 24 hr 04/14/23 08:31 04/14/23 18:50 Temperature 97.7 F Pulse Rate 75 75 Respiratory Rate 16 Blood Pressure 158/92 H 156/87 H Pulse Oximetry 95 Oxygen Delivery Method Room Air BMI result Body Mass Index 35.9 Labs 04/12/23 15:22 04/18/23 09:19 Labs: Laboratory Results - last 48 hr 04/13/23 04/13/23 04/13/23 09:59 12:09 17:08 POC Glucose 245 H 164 H 121 H 04/13/23 04/14/23 04/14/23 20:13 08:09 12:18 POC Glucose 144 H 149 H 155 H 04/14/23 16:39 POC Glucose 103 Medications Medications Current Medications Acetaminophen (Acetaminophen 325 Mg Tablet) 650 mg PO Q6H PRN PRN Reason: Headache/Pain Mild Scale (1-3) Last Admin: 04/14/23 19:54 Dose: 650 mg Al Hydroxide/Mg Hydroxide (Magnesium Hydrox/Alum Hydrox 30 Ml Oral.Susp) 30 ml PO Q6H PRN PRN Reason: Heartburn/Nausea Clonidine HCl (Clonidine Hcl 0.1 Mg Tablet) 0.1 mg PO BID PRN; Protocol PRN Reason: Anxiety Last Admin: 04/14/23 18:55 Dose: 0.1 mg Doxepin HCl (Doxepin Hcl 25 Mg Capsule) 150 mg PO BEDTIME [facility] Last Admin: 04/14/23 20:48 Dose: 150 mg Gabapentin (Gabapentin 400 Mg Capsule) 800 mg PO TID [facility] Last Admin: 04/14/23 20:47 Dose: 800 mg Hydrochlorothiazide (Hydrochlorothiazide 25 Mg Tablet) 25 mg PO DAILY [facility] Last Admin: 04/14/23 08:37 Dose: 25 mg Hydroxyzine HCl (Hydroxyzine Hcl 25 Mg Tablet) 25 mg PO Q6H PRN PRN Reason: Anxiety Last Admin: 04/12/23 22:56 Dose: 25 mg Insulin Glargine (Insulin Glargine,Hum.Rec.Anlog 100 Unit/Ml 10 Ml Vial) 20 unit SUBCUT BEDTIME [facility] Last Admin: 04/14/23 21:12 Dose: 20 unit Lurasidone HCl (Lurasidone Hcl 20 Mg Tablet) 20 mg PO DAILY@1800 [facility] Last Admin: 04/14/23 17:46 Dose: 20 mg Magnesium Hydroxide (Milk Of Magnesia 30 Ml Oral.Susp) 30 ml PO DAILY PRN PRN Reason: Constipation Metformin HCl (Metformin Hcl 1,000 Mg Tablet) 1,000 mg PO BID [facility] Last Admin: 04/14/23 20:47 Dose: 1,000 mg Methadone HCl (Methadone Hcl 20 Mg/2 Ml Oral.Conc) 127 mg PO DAILY [facility] Last Admin: 04/14/23 08:38 Dose: 127 mg Metoprolol Succinate (Metoprolol Succinate Er 100 Mg Tab.Er.24h) 100 mg PO DAILY [facility]; Protocol Last Admin: 04/14/23 08:38 Dose: 100 mg Nicotine (Nicotine 21 Mg Patch.Td24) 21 mg TRANSDERMA DAILY PRN PRN Reason: smoking cessation Last Admin: 04/14/23 08:36 Dose: 21 mg Nicotine Polacrilex (Nicotine Polacrilex Lozenge 4 Mg Lozenge) 4 mg BUCCAL Q2H PRN PRN Reason: Nicotine Cravings Last Admin: 04/14/23 19:54 Dose: 4 mg Olanzapine (Olanzapine 5 Mg Tablet) 5 mg PO TID PRN PRN Reason: agitation Last Admin: 04/14/23 18:55 Dose: 5 mg Olanzapine (Olanzapine 10 Mg Tablet) 20 mg PO BEDTIME [facility] Last Admin: 04/14/23 20:47 Dose: 20 mg Sitagliptin Phosphate (Sitagliptin Phosphate 25 Mg Tablet) 25 mg PO DAILY [facility] Last Admin: 04/14/23 08:37 Dose: 25 mg Sodium Chloride (Sodium Chloride 0.65 % Nasal 44 Ml Sprbtl) 1 spray NOSTRIL-B Q1H PRN PRN Reason: Nasal Congestion Last Admin: 04/14/23 22:02 Dose: 1 spray Trazodone HCl (Trazodone Hcl 50 Mg Tablet) 50 mg PO BEDTIME MRX1 PRN PRN Reason: Insomnia Allergies Allergies Allergy/AdvReac Type Severity Reaction Status Date / Time No Known Allergies Allergy Verified 04/12/23 13:28 Assessment & Plan Assessment & Plan (1) Bipolar II disorder: Status: Acute Code(s): F31.81 - Bipolar II disorder (2) Alcohol use disorder: Status: Acute Code(s): F10.90 - Alcohol use, unspecified, uncomplicated Plan HPI: Patient is a 52-year-old male with history of bipolar II depression alcohol use disorder in sustained remission presents for worsening depression, SI in the face of medication changes and 1 day relapse of alcohol. Patient reports that he has been sober for the past year other than this 1 day of alcohol and cocaine use. He says that his mood and depression were overall well treated on Effexor however he became hypertensive which only resolved when Effexor was tapered and discontinued about a year ago; Lamictal briefly helped but caused excessive tremors and also discontinue. He says since then he reports slowly worsening depressive symptoms that have became severe over the past few weeks, patient citing diminished interest, low energy, poor concentration, low appetite, excessive sleepiness and then the beginning of passive SI and then SI with vague plan to overdose on medication. Patient tried to increase his methadone dose to see if that would help his mood which he did not. On Jonah, feeling dejected, he drink and used cocaine 1 time. Feeling guilty and angry at himself, Patient's SI increased and so he called his therapist and then crisis for help. Patient reports that despite this brief relapse, he did continue to drink which he usually does. Patient denies any recent manic episodes; denies history of trauma or AVH. No past psychiatric admissions No history of self-harm or suicide attempts Reports history of manic episodes that last for about 3 days where he is excited, likely talking fast, not needing sleep, going on shopping sprees which have occurred during periods of sobriety; patient was started on Zyprexa which have helped keep away manic episodes Impression: Bipolar depression with hypomanic episodes; patient's depression moderately well treated with Effexor which unfortunately caused hypertension; patient currently depressed but other than 1 day relapse, has remained sober despite months of depressed mood. Discussed medication options including lithium and Latuda, reviewing risks/side effects, including synergistic risk when combined with the Zyprexa, and patient wants to try Latuda. Plan: CV Q 15 minute checks Continue home medications Patient also on Lantus 20 mg q.h.s. Will start Latuda 20 mg at dinner time; will likely need to titrate; may need prior authorization Reason for continued inpatient stay Substantial Risk for: inability to function, rapid decompensation and med/psych decompensation Time Spent With Patient Time: Total time managing care of this patient today ____ minutes.
[2023-04-15 02:28] LABS: Glucose, Whole Blood 149 mg/dL (60-115)
[2023-04-15 08:23] VITALS: BP 150/72; PULSE 70; RESP 16; TEMP 36.8; O2SAT 92
[2023-04-15] MEDS: Gabapentin 400 MG CAPSULE 800 MG PO ×3 (08:29→20:50)
[2023-04-15] MEDS: methADONE HCl 20 MG/2 ML ORAL.CONC 127 MG PO (08:29)
[2023-04-15] MEDS: SITagliptin Phosphate 25 MG TABLET PO (08:30)
[2023-04-15] MEDS: metFORMIN HCl 1,000 MG TABLET 1000 MG PO ×2 (08:30→20:50)
[2023-04-15] MEDS: hydroCHLOROthiazide 25 MG TABLET PO (08:30)
[2023-04-15] MEDS: Nicotine Polacrilex Lozenge 4 MG LOZENGE BUCCAL ×5 (08:31→20:50)
[2023-04-15] MEDS: Metoprolol Succinate ER 100 MG TAB.ER.24H PO (08:31)
[2023-04-15 08:35] LABS: Glucose, Whole Blood 149 mg/dL (60-115)
[2023-04-15] MEDS: Nicotine 21 MG PATCH.TD24 TRANSDERMA (08:39)
[2023-04-15] MEDS: Sodium Chloride 0.65 % Nasal 44 ML SPRBTL 1 SPRAY NOSTRIL-B ×4 (10:44→20:54)
[2023-04-15 12:00] LABS: Glucose, Whole Blood 119 mg/dL (60-115)
[2023-04-15 16:45] VITALS: BP 140/87; PULSE 79; TEMP 37; O2SAT 93
[2023-04-15] MEDS: OLANZapine 5 MG TABLET PO (16:56)
[2023-04-15] MEDS: cloNIDine HCL 0.1 MG TABLET PO (16:56)
[2023-04-15 17:24] LABS: Glucose, Whole Blood 153 mg/dL (60-115)
[2023-04-15] MEDS: Lurasidone HCl 40 MG TABLET PO (17:57)
[2023-04-15 20:45] VITALS: BP 144/78; PULSE 76
[2023-04-15] MEDS: Insulin Glargine,Hum.rec.anlog 100 UNIT/ML 10 ML VIAL 20 UNIT SUBCUT (20:53)
[2023-04-15 21:54] LABS: Glucose, Whole Blood 140 mg/dL (60-115)
--- NOTE | 2023-04-15 22:47 | HO.PSYCHPN ---
Subjective Subjective Date of Service: 04/15/23 Reason For Visit: depression/ si Interim History: Patient still reporting low mood, says most of the day it's not too bad but still having extreme lows, in the AM and later in the afternoon/evening. Last night had very bad anxiety and a little withdrawal . He reports finally falling asleep and sleeping better after taking combination of Zyprexa 5 mg and clonidine last night, I thought that worked . He admits he had been taking a little extra methadone in the past few weeks. Methadone currently at 127 mg. He is agreeable to bump up to 130 mg tomorrow AM. We will stop trazodone since he is not using. He notes he was not previously on medication prior to admission, but has been started on Latuda on admission. Has been compliant. Denies any adverse effects. He is agreeable to increasing the dose to 40 mg tonight. Medication Compliance: Yes Side effects from medications: No Attending Groups: Yes Review of Systems Acute medical concerns: No Mental Status Exam Mental Status Exam Narrative: Alert, oriented, in no acute distress. Calm, cooperative, engaged. Hand tremor b/l, ?TD. No tics noted.? No psychomotor agitation or neurovegetative retardation. Eye contact maintained. Mood depressed, affect constricted. Speech normal. Thought process linear, coherent. Thought content related to stressors, transient hopelessness, denies SI or HI. No paranoia or delusional content elicited. No evidence of psychosis. Insight and judgment impaired but improving. Diagnostics Vital Signs (24Hr): Vital Signs - 24 hr 04/15/23 08:23 04/15/23 16:45 04/15/23 20:45 Temperature 98.3 F 98.6 F Pulse Rate 70 79 76 Respiratory Rate 16 Blood Pressure 150/72 H 140/87 H 144/78 H Pulse Oximetry 92 93 Oxygen Delivery Method Room Air Room Air BMI result Body Mass Index 35.9 Labs 04/12/23 15:22 04/18/23 09:19 Labs: Laboratory Results - last 48 hr 04/14/23 04/14/23 04/14/23 08:09 12:18 16:39 POC Glucose 149 H 155 H 103 04/14/23 04/15/23 04/15/23 20:43 08:21 11:56 POC Glucose 149 H 149 H 119 H 04/15/23 04/15/23 16:53 20:45 POC Glucose 153 H 140 H Medications Medications Current Medications Acetaminophen (Acetaminophen 325 Mg Tablet) 650 mg PO Q6H PRN PRN Reason: Headache/Pain Mild Scale (1-3) Last Admin: 04/14/23 19:54 Dose: 650 mg Al Hydroxide/Mg Hydroxide (Magnesium Hydrox/Alum Hydrox 30 Ml Oral.Susp) 30 ml PO Q6H PRN PRN Reason: Heartburn/Nausea Clonidine HCl (Clonidine Hcl 0.1 Mg Tablet) 0.1 mg PO BID PRN; Protocol PRN Reason: Anxiety Last Admin: 04/15/23 16:56 Dose: 0.1 mg Doxepin HCl (Doxepin Hcl 25 Mg Capsule) 150 mg PO BEDTIME [facility] Last Admin: 04/14/23 20:48 Dose: 150 mg Gabapentin (Gabapentin 400 Mg Capsule) 800 mg PO TID [facility] Last Admin: 04/15/23 20:50 Dose: 800 mg Hydrochlorothiazide (Hydrochlorothiazide 25 Mg Tablet) 25 mg PO DAILY [facility] Last Admin: 04/15/23 08:30 Dose: 25 mg Hydroxyzine HCl (Hydroxyzine Hcl 25 Mg Tablet) 25 mg PO Q6H PRN PRN Reason: Anxiety Last Admin: 04/12/23 22:56 Dose: 25 mg Insulin Glargine (Insulin Glargine,Hum.Rec.Anlog 100 Unit/Ml 10 Ml Vial) 20 unit SUBCUT BEDTIME [facility] Last Admin: 04/15/23 20:53 Dose: 20 unit Lurasidone HCl (Lurasidone Hcl 40 Mg Tablet) 40 mg PO DAILY@1800 [facility] Last Admin: 04/15/23 17:57 Dose: 40 mg Magnesium Hydroxide (Milk Of Magnesia 30 Ml Oral.Susp) 30 ml PO DAILY PRN PRN Reason: Constipation Metformin HCl (Metformin Hcl 1,000 Mg Tablet) 1,000 mg PO BID [facility] Last Admin: 04/15/23 20:50 Dose: 1,000 mg Methadone HCl (Methadone Hcl 20 Mg/2 Ml Oral.Conc) 130 mg PO DAILY [facility] Metoprolol Succinate (Metoprolol Succinate Er 100 Mg Tab.Er.24h) 100 mg PO DAILY [facility]; Protocol Last Admin: 04/15/23 08:31 Dose: 100 mg Nicotine (Nicotine 21 Mg Patch.Td24) 21 mg TRANSDERMA DAILY PRN PRN Reason: smoking cessation Last Admin: 04/15/23 08:39 Dose: 21 mg Nicotine Polacrilex (Nicotine Polacrilex Lozenge 4 Mg Lozenge) 4 mg BUCCAL Q2H PRN PRN Reason: Nicotine Cravings Last Admin: 04/15/23 20:50 Dose: 4 mg Olanzapine (Olanzapine 5 Mg Tablet) 5 mg PO TID PRN PRN Reason: agitation Last Admin: 04/15/23 16:56 Dose: 5 mg Olanzapine (Olanzapine 10 Mg Tablet) 20 mg PO BEDTIME [facility] Last Admin: 04/14/23 20:47 Dose: 20 mg Sitagliptin Phosphate (Sitagliptin Phosphate 25 Mg Tablet) 25 mg PO DAILY [facility] Last Admin: 04/15/23 08:30 Dose: 25 mg Sodium Chloride (Sodium Chloride 0.65 % Nasal 44 Ml Sprbtl) 1 spray NOSTRIL-B Q1H PRN PRN Reason: Nasal Congestion Last Admin: 04/15/23 20:54 Dose: 1 spray Allergies Allergies Allergy/AdvReac Type Severity Reaction Status Date / Time No Known Allergies Allergy Verified 04/12/23 13:28 Assessment & Plan Assessment & Plan (1) Bipolar II disorder: Status: Acute Code(s): F31.81 - Bipolar II disorder (2) Alcohol use disorder: Status: Acute Code(s): F10.90 - Alcohol use, unspecified, uncomplicated Plan HPI: Patient is a 52-year-old male with history of bipolar II depression alcohol use disorder in sustained remission presents for worsening depression, SI in the face of medication changes and 1 day relapse of alcohol. Patient reports that he has been sober for the past year other than this 1 day of alcohol and cocaine use. He says that his mood and depression were overall well treated on Effexor however he became hypertensive which only resolved when Effexor was tapered and discontinued about a year ago; Lamictal briefly helped but caused excessive tremors and also discontinue. He says since then he reports slowly worsening depressive symptoms that have became severe over the past few weeks, patient citing diminished interest, low energy, poor concentration, low appetite, excessive sleepiness and then the beginning of passive SI and then SI with vague plan to overdose on medication. Patient tried to increase his methadone dose to see if that would help his mood which he did not. On Jon[place], feeling dejected, he drink and used cocaine 1 time. Feeling guilty and angry at himself, Patient's SI increased and so he called his therapist and then crisis for help. Patient reports that despite this brief relapse, he did continue to drink which he usually does. Patient denies any recent manic episodes; denies history of trauma or AVH. No past psychiatric admissions No history of self-harm or suicide attempts Reports history of manic episodes that last for about 3 days where he is excited, likely talking fast, not needing sleep, going on shopping sprees which have occurred during periods of sobriety; patient was started on Zyprexa which have helped keep away manic episodes Impression: Bipolar depression with hypomanic episodes; patient's depression moderately well treated with Effexor which unfortunately caused hypertension; patient currently depressed but other than 1 day relapse, has remained sober despite months of depressed mood. Discussed medication options including lithium and Latuda, reviewing risks/side effects, including synergistic risk when combined with the Zyprexa, and patient wants to try Latuda. Plan: CV Q 15 minute checks Continue home medications Patient also on Lantus 20 mg q.h.s. Will start Latuda 20 mg at dinner time; will likely need to titrate; may need prior authorization Reason for continued inpatient stay Substantial Risk for: inability to function, rapid decompensation and med/psych decompensation Time Spent With Patient Time: Total time managing care of this patient today ____ minutes.
[2023-04-16] MEDS: Nicotine Polacrilex Lozenge 4 MG LOZENGE BUCCAL ×6 (06:37→20:12)
[2023-04-16 08:30] VITALS: BP 143/86; PULSE 84; RESP 16; TEMP 36.4; O2SAT 96
[2023-04-16 08:34] LABS: Glucose, Whole Blood 169 mg/dL (60-115)
[2023-04-16] MEDS: Nicotine 21 MG PATCH.TD24 TRANSDERMA (08:34)
[2023-04-16] MEDS: Sodium Chloride 0.65 % Nasal 44 ML SPRBTL 1 SPRAY NOSTRIL-B ×4 (08:34→16:56)
[2023-04-16] MEDS: metFORMIN HCl 1,000 MG TABLET 1000 MG PO ×2 (08:35→20:08)
[2023-04-16] MEDS: Gabapentin 400 MG CAPSULE 800 MG PO ×3 (08:35→20:08)
[2023-04-16] MEDS: hydroCHLOROthiazide 25 MG TABLET PO (08:35)
[2023-04-16] MEDS: Metoprolol Succinate ER 100 MG TAB.ER.24H PO (08:35)
[2023-04-16] MEDS: SITagliptin Phosphate 25 MG TABLET PO (08:35)
[2023-04-16] MEDS: methADONE HCl 20 MG/2 ML ORAL.CONC 130 MG PO (08:36)
[2023-04-16 13:00] LABS: Glucose, Whole Blood 93 mg/dL (60-115)
[2023-04-16 17:12] LABS: Glucose, Whole Blood 144 mg/dL (60-115)
[2023-04-16 18:00] VITALS: BP 146/70; PULSE 84; RESP 16; TEMP 35.9; O2SAT 94
[2023-04-16] MEDS: Lurasidone HCl 40 MG TABLET PO (18:00)
[2023-04-16] MEDS: OLANZapine 5 MG TABLET PO (18:51)
[2023-04-16] MEDS: cloNIDine HCL 0.1 MG TABLET PO (18:53)
[2023-04-16] MEDS: Insulin Glargine,Hum.rec.anlog 100 UNIT/ML 10 ML VIAL 20 UNIT SUBCUT (19:59)
[2023-04-16] MEDS: Doxepin HCl 25 MG CAPSULE 150 MG PO (20:07)
[2023-04-16] MEDS: OLANZapine 10 MG TABLET 20 MG PO (20:07)
--- NOTE | 2023-04-16 22:03 | P.PNPSI_ITS ---
Subjective Subjective Date of Service: 04/16/23 Reason For Visit: depression/ si Interim History: Patient seen, more sociable on unit. No behavioral issues. I'm doing better specifically he is feeling better his ear is clearing up and he can breath better through nose. Notes that the saline is working. Mood is ok..not too bad . Sleep is also better. Has been talking to peers. Denies any SI, HI, AH, or VH. Mental Status Exam Mental Status Exam Narrative: Alert, oriented, in no acute distress. Calm, cooperative, engaged. Hand tremor b/l, ?TD. No tics noted.? No psychomotor agitation or neurovegetative retardation. Eye contact maintained. Mood depressed, affect constricted. Speech normal. Thought process linear, coherent. Thought content related to stressors, transient hopelessness, denies SI or HI. No paranoia or delusional content elicited. No evidence of psychosis. Insight and judgment impaired. Diagnostics Vital Signs (24Hr): Vital Signs - 24 hr 04/16/23 08:30 04/16/23 18:00 Temperature 97.5 F 96.7 F L Pulse Rate 84 84 Respiratory Rate 16 16 Blood Pressure 143/86 H 146/70 H Pulse Oximetry 96 94 Oxygen Delivery Method Room Air Room Air BMI result Body Mass Index 35.9 Labs 04/12/23 15:22 04/18/23 09:19 Labs: Laboratory Results - last 48 hr 04/14/23 04/15/23 04/15/23 20:43 08:21 11:56 POC Glucose 149 H 149 H 119 H 04/15/23 04/15/23 04/16/23 16:53 20:45 08:31 POC Glucose 153 H 140 H 169 H 04/16/23 04/16/23 12:56 16:54 POC Glucose 93 144 H Medications Medications Current Medications Acetaminophen (Acetaminophen 325 Mg Tablet) 650 mg PO Q6H PRN PRN Reason: Headache/Pain Mild Scale (1-3) Last Admin: 04/14/23 19:54 Dose: 650 mg Al Hydroxide/Mg Hydroxide (Magnesium Hydrox/Alum Hydrox 30 Ml Oral.Susp) 30 ml PO Q6H PRN PRN Reason: Heartburn/Nausea Clonidine HCl (Clonidine Hcl 0.1 Mg Tablet) 0.1 mg PO BID PRN; Protocol PRN Reason: Anxiety Last Admin: 04/16/23 18:53 Dose: 0.1 mg Doxepin HCl (Doxepin Hcl 25 Mg Capsule) 150 mg PO BEDTIME [facility] Last Admin: 04/16/23 20:07 Dose: 150 mg Gabapentin (Gabapentin 400 Mg Capsule) 800 mg PO TID [facility] Last Admin: 04/16/23 20:08 Dose: 800 mg Hydrochlorothiazide (Hydrochlorothiazide 25 Mg Tablet) 25 mg PO DAILY [facility] Last Admin: 04/16/23 08:35 Dose: 25 mg Hydroxyzine HCl (Hydroxyzine Hcl 25 Mg Tablet) 25 mg PO Q6H PRN PRN Reason: Anxiety Last Admin: 04/12/23 22:56 Dose: 25 mg Insulin Glargine (Insulin Glargine,Hum.Rec.Anlog 100 Unit/Ml 10 Ml Vial) 20 unit SUBCUT BEDTIME [facility] Last Admin: 04/16/23 19:59 Dose: 20 unit Lurasidone HCl (Lurasidone Hcl 40 Mg Tablet) 40 mg PO DAILY@1800 [facility] Last Admin: 04/16/23 18:00 Dose: 40 mg Magnesium Hydroxide (Milk Of Magnesia 30 Ml Oral.Susp) 30 ml PO DAILY PRN PRN Reason: Constipation Metformin HCl (Metformin Hcl 1,000 Mg Tablet) 1,000 mg PO BID [facility] Last Admin: 04/16/23 20:08 Dose: 1,000 mg Methadone HCl (Methadone Hcl 20 Mg/2 Ml Oral.Conc) 130 mg PO DAILY [facility] Last Admin: 04/16/23 08:36 Dose: 130 mg Metoprolol Succinate (Metoprolol Succinate Er 100 Mg Tab.Er.24h) 100 mg PO DAILY [facility]; Protocol Last Admin: 04/16/23 08:35 Dose: 100 mg Nicotine (Nicotine 21 Mg Patch.Td24) 21 mg TRANSDERMA DAILY PRN PRN Reason: smoking cessation Last Admin: 04/16/23 08:34 Dose: 21 mg Nicotine Polacrilex (Nicotine Polacrilex Lozenge 4 Mg Lozenge) 4 mg BUCCAL Q2H PRN PRN Reason: Nicotine Cravings Last Admin: 04/16/23 20:12 Dose: 4 mg Olanzapine (Olanzapine 5 Mg Tablet) 5 mg PO TID PRN PRN Reason: agitation Last Admin: 04/16/23 18:51 Dose: 5 mg Olanzapine (Olanzapine 10 Mg Tablet) 20 mg PO BEDTIME [facility] Last Admin: 04/16/23 20:07 Dose: 20 mg Sitagliptin Phosphate (Sitagliptin Phosphate 25 Mg Tablet) 25 mg PO DAILY [facility] Last Admin: 04/16/23 08:35 Dose: 25 mg Sodium Chloride (Sodium Chloride 0.65 % Nasal 44 Ml Sprbtl) 1 spray NOSTRIL-B Q1H PRN PRN Reason: Nasal Congestion Last Admin: 04/16/23 16:56 Dose: 1 spray Allergies Allergies Allergy/AdvReac Type Severity Reaction Status Date / Time No Known Allergies Allergy Verified 04/12/23 13:28 Assessment & Plan Assessment & Plan (1) Bipolar II disorder: Status: Acute Code(s): F31.81 - Bipolar II disorder (2) Alcohol use disorder: Status: Acute Code(s): F10.90 - Alcohol use, unspecified, uncomplicated Plan HPI: Patient is a 52-year-old male with history of bipolar II depression alcohol use disorder in sustained remission presents for worsening depression, SI in the face of medication changes and 1 day relapse of alcohol. Patient reports that he has been sober for the past year other than this 1 day of alcohol and cocaine use. He says that his mood and depression were overall well treated on Effexor however he became hypertensive which only resolved when Effexor was tapered and discontinued about a year ago; Lamictal briefly helped but caused excessive tremors and also discontinue. He says since then he reports slowly worsening depressive symptoms that have became severe over the past few weeks, patient citing diminished interest, low energy, poor concentration, low appetite, excessive sleepiness and then the beginning of passive SI and then SI with vague plan to overdose on medication. Patient tried to increase his methadone dose to see if that would help his mood which he did not. On [place], feeling dejected, he drink and used cocaine 1 time. Feeling guilty and angry at himself, Patient's SI increased and so he called his therapist and then crisis for help. Patient reports that despite this brief relapse, he did continue to drink which he usually does. Patient denies any recent manic episodes; denies history of trauma or AVH. No past psychiatric admissions No history of self-harm or suicide attempts Reports history of manic episodes that last for about 3 days where he is excited, likely talking fast, not needing sleep, going on shopping sprees which have occurred during periods of sobriety; patient was started on Zyprexa which have helped keep away manic episodes Impression: Bipolar depression with hypomanic episodes; patient's depression moderately well treated with Effexor which unfortunately caused hypertension; patient currently depressed but other than 1 day relapse, has remained sober despite months of depressed mood. Discussed medication options including lithium and Latuda, reviewing risks/side effects, including synergistic risk when combined with the Zyprexa, and patient wants to try Latuda. Plan: CV Q 15 minute checks Continue home medications Patient also on Lantus 20 mg q.h.s. Will start Latuda 20 mg at dinner time; will likely need to titrate; may need prior authorization Reason for continued inpatient stay Substantial Risk for: inability to function, rapid decompensation and med/psych decompensation Time Spent With Patient Time: Total time managing care of this patient today ____ minutes.
[2023-04-16 22:17] LABS: Glucose, Whole Blood 136 mg/dL (60-115)
[2023-04-17] MEDS: Nicotine Polacrilex Lozenge 4 MG LOZENGE BUCCAL ×6 (04:36→21:00)
[2023-04-17 08:12] LABS: Glucose, Whole Blood 122 mg/dL (60-115)
[2023-04-17 08:24] VITALS: BP 132/75; PULSE 92; RESP 18; TEMP 36.2; O2SAT 97
[2023-04-17] MEDS: SITagliptin Phosphate 25 MG TABLET PO (08:27)
[2023-04-17] MEDS: hydroCHLOROthiazide 25 MG TABLET PO (08:27)
[2023-04-17] MEDS: Nicotine 21 MG PATCH.TD24 TRANSDERMA (08:27)
[2023-04-17] MEDS: Gabapentin 400 MG CAPSULE 800 MG PO ×3 (08:27→20:59)
[2023-04-17] MEDS: metFORMIN HCl 1,000 MG TABLET 1000 MG PO ×2 (08:27→20:59)
[2023-04-17] MEDS: Metoprolol Succinate ER 100 MG TAB.ER.24H PO (08:27)
[2023-04-17] MEDS: methADONE HCl 20 MG/2 ML ORAL.CONC 130 MG PO (09:01)
--- NOTE | 2023-04-17 09:58 | P.PNPSI_ITS ---
Subjective Subjective Date of Service: 04/17/23 Reason For Visit: depression/ si Interim History: met with patient; discussed with team; reviewed notes/chart Still depressed and anxious however starting to feel a little better; he can tell by the fact that he's not wishing he were , the ways he's interacting with others more and just overall feeling more hopeful. Says ho side-effects from Latuda. Asked about increasing dose, but agrees to hold off for now given hx of side-effects from various meds...Pt says groups are helping a lot. Mental Status Exam Mental Status Exam Narrative: Pt is alert and oriented; behavior is cooperative, friendly and calm; patient is not in distress; dressed in casual attire, well groomed; mood is described as a little better and affect congruent, more calm; eye contact appropriate; bilateral hand tremor and some mouth movements observable; Speech is normal rate, volume and prosody and not pressured; no psychomotor agitation/retardation present; thought process is organized and goal directed; Thought content is on tx; otherwise pertinent to relevant topics and without any delusional content, paranoid ideations or grandiosity; intermittent passive SI, but no active; no HI. There is no evidence of perceptual disturbance. Patients insight and judgment impaired but improving Diagnostics Vital Signs (24Hr): Vital Signs - 24 hr 04/16/23 18:00 04/17/23 08:24 Temperature 96.7 F L 97.2 F Pulse Rate 84 92 Respiratory Rate 16 18 Blood Pressure 146/70 H 132/75 Pulse Oximetry 94 97 Oxygen Delivery Method Room Air Room Air BMI result Body Mass Index 35.9 Labs 04/12/23 15:22 04/12/23 15:22 Labs: Laboratory Results - last 48 hr 04/15/23 04/15/23 04/15/23 11:56 16:53 20:45 POC Glucose 119 H 153 H 140 H 04/16/23 04/16/23 04/16/23 08:31 12:56 16:54 POC Glucose 169 H 93 144 H 04/16/23 04/17/23 19:56 07:58 POC Glucose 136 H 122 H Medications Medications Current Medications Acetaminophen (Acetaminophen 325 Mg Tablet) 650 mg PO Q6H PRN PRN Reason: Headache/Pain Mild Scale (1-3) Last Admin: 04/14/23 19:54 Dose: 650 mg Al Hydroxide/Mg Hydroxide (Magnesium Hydrox/Alum Hydrox 30 Ml Oral.Susp) 30 ml PO Q6H PRN PRN Reason: Heartburn/Nausea Clonidine HCl (Clonidine Hcl 0.1 Mg Tablet) 0.1 mg PO BID PRN; Protocol PRN Reason: Anxiety Last Admin: 04/16/23 18:53 Dose: 0.1 mg Doxepin HCl (Doxepin Hcl 25 Mg Capsule) 150 mg PO BEDTIME [facility] Last Admin: 04/16/23 20:07 Dose: 150 mg Gabapentin (Gabapentin 400 Mg Capsule) 800 mg PO TID [facility] Last Admin: 04/17/23 08:27 Dose: 800 mg Hydrochlorothiazide (Hydrochlorothiazide 25 Mg Tablet) 25 mg PO DAILY [facility] Last Admin: 04/17/23 08:27 Dose: 25 mg Hydroxyzine HCl (Hydroxyzine Hcl 25 Mg Tablet) 25 mg PO Q6H PRN PRN Reason: Anxiety Last Admin: 04/12/23 22:56 Dose: 25 mg Insulin Glargine (Insulin Glargine,Hum.Rec.Anlog 100 Unit/Ml 10 Ml Vial) 20 unit SUBCUT BEDTIME [facility] Last Admin: 04/16/23 19:59 Dose: 20 unit Lurasidone HCl (Lurasidone Hcl 40 Mg Tablet) 40 mg PO DAILY@1800 [facility] Last Admin: 04/16/23 18:00 Dose: 40 mg Magnesium Hydroxide (Milk Of Magnesia 30 Ml Oral.Susp) 30 ml PO DAILY PRN PRN Reason: Constipation Metformin HCl (Metformin Hcl 1,000 Mg Tablet) 1,000 mg PO BID [facility] Last Admin: 04/17/23 08:27 Dose: 1,000 mg Methadone HCl (Methadone Hcl 20 Mg/2 Ml Oral.Conc) 130 mg PO DAILY [facility] Last Admin: 04/17/23 09:01 Dose: 130 mg Metoprolol Succinate (Metoprolol Succinate Er 100 Mg Tab.Er.24h) 100 mg PO DAILY [facility]; Protocol Last Admin: 04/17/23 08:27 Dose: 100 mg Nicotine (Nicotine 21 Mg Patch.Td24) 21 mg TRANSDERMA DAILY PRN PRN Reason: smoking cessation Last Admin: 04/17/23 08:27 Dose: 21 mg Nicotine Polacrilex (Nicotine Polacrilex Lozenge 4 Mg Lozenge) 4 mg BUCCAL Q2H PRN PRN Reason: Nicotine Cravings Last Admin: 04/17/23 08:27 Dose: 4 mg Olanzapine (Olanzapine 5 Mg Tablet) 5 mg PO TID PRN PRN Reason: agitation Last Admin: 04/16/23 18:51 Dose: 5 mg Olanzapine (Olanzapine 10 Mg Tablet) 20 mg PO BEDTIME [facility] Last Admin: 04/16/23 20:07 Dose: 20 mg Sitagliptin Phosphate (Sitagliptin Phosphate 25 Mg Tablet) 25 mg PO DAILY [facility] Last Admin: 04/17/23 08:27 Dose: 25 mg Sodium Chloride (Sodium Chloride 0.65 % Nasal 44 Ml Sprbtl) 1 spray NOSTRIL-B Q1H PRN PRN Reason: Nasal Congestion Last Admin: 04/16/23 16:56 Dose: 1 spray Allergies Allergies Allergy/AdvReac Type Severity Reaction Status Date / Time No Known Allergies Allergy Verified 04/12/23 13:28 Assessment & Plan Assessment & Plan (1) Bipolar II disorder: Status: Acute Code(s): F31.81 - Bipolar II disorder (2) Alcohol use disorder: Status: Acute Code(s): F10.90 - Alcohol use, unspecified, uncomplicated Plan HPI: Patient is a 52-year-old male with history of bipolar II depression alcohol use disorder in sustained remission presents for worsening depression, SI in the face of medication changes. He says that his mood and depression were overall well treated on Effexor however he became hypertensive which only resolved when Effexor was tapered and discontinued about a year ago; Lamictal briefly helped but caused excessive tremors and also discontinue. He says since then he reports slowly worsening depressive symptoms that have became severe over the past few weeks, patient citing diminished interest, low energy, poor concentration, low appetite, excessive sleepiness and then the beginning of passive SI and then SI with vague plan to overdose on medication. Patient tried to increase his methadone dose to see if that would help his mood which he did not. Feeling guilty and angry at himself, Patient's SI increased and so he called his therapist and then crisis for help. Patient denies any recent manic episodes; denies history of trauma or AVH. No past psychiatric admissions No history of self-harm or suicide attempts Reports history of manic episodes that last for about 3 days where he is excited, likely talking fast, not needing sleep, going on shopping sprees which have occurred during periods of sobriety; patient was started on Zyprexa which have helped keep away manic episodes Impression: Bipolar depression with hypomanic episodes; patient's depression moderately well treated with Effexor which unfortunately caused hypertension; patient currently depressed. Discussed medication options including lithium and Latuda, reviewing risks/side effects, including synergistic risk when combined with the Zyprexa, and patient wants to try Latuda. 04/17/23 feeling a little better; he can tell by the fact that he's not wishing he were , the ways he's interacting with others more and just overall feeling more hopeful. Says no side-effects from Latuda. Asked about increasing dose, but agrees to hold off for now given hx of side-effects from various meds...Pt says groups are helping a lot. Wants to go back to assisted at discharge but feels needs more time to fully stabilize to which bond underwriter agrees. -some bilateral hand tremor and intermittently mouth movements observable; did not do AIMS; discussed early on with patient who was not concerned and understands it could possibly be due to medications that affect Plan: CV Q 15 minute checks Continue home medications Patient also on Lantus 20 mg q.h.s. Latuda 40 mg at dinner time; will likely need to titrate; may need prior authorization Patient educated on: diagnosis, medication risk/benefits and substance abuse Informed Consent: understands Reason for continued inpatient stay Substantial Risk for: rapid decompensation Time Spent With Patient Time: Total time managing care of this patient today ____ minutes.
[2023-04-17 12:44] LABS: Glucose, Whole Blood 100 mg/dL (60-115)
[2023-04-17 17:29] LABS: Glucose, Whole Blood 109 mg/dL (60-115)
[2023-04-17 18:50] VITALS: BP 133/79; PULSE 89; RESP 16; TEMP 36.3; O2SAT 95
[2023-04-17] MEDS: OLANZapine 5 MG TABLET PO (19:01)
[2023-04-17] MEDS: Lurasidone HCl 40 MG TABLET PO (19:01)
[2023-04-17] MEDS: cloNIDine HCL 0.1 MG TABLET PO (19:01)
[2023-04-17] MEDS: Insulin Glargine,Hum.rec.anlog 100 UNIT/ML 10 ML VIAL 20 UNIT SUBCUT (20:58)
[2023-04-17] MEDS: Doxepin HCl 25 MG CAPSULE 150 MG PO (20:59)
[2023-04-17] MEDS: OLANZapine 10 MG TABLET 20 MG PO (20:59)
[2023-04-17 21:17] LABS: Glucose, Whole Blood 234 mg/dL (60-115)
[2023-04-18 07:55] VITALS: BP 161/80; PULSE 70; RESP 18; TEMP 36.3; O2SAT 95
[2023-04-18] MEDS: Gabapentin 400 MG CAPSULE 800 MG PO ×3 (08:35→20:37)
[2023-04-18] MEDS: methADONE HCl 20 MG/2 ML ORAL.CONC 130 MG PO (08:36)
[2023-04-18] MEDS: hydroCHLOROthiazide 25 MG TABLET PO (08:36)
[2023-04-18] MEDS: SITagliptin Phosphate 25 MG TABLET PO (08:36)
[2023-04-18] MEDS: Metoprolol Succinate ER 100 MG TAB.ER.24H PO (08:36)
[2023-04-18] MEDS: metFORMIN HCl 1,000 MG TABLET 1000 MG PO ×2 (08:36→20:37)
--- NOTE | 2023-04-18 08:58 | HO.PSYCHPN ---
Subjective Subjective Date of Service: 04/18/23 Reason For Visit: depression/ si Interim History: Met with patient; discussed with team Although patient is feeling a little better he remains quite depressed anxious as well. And asked if Latuda can be increased. Says he thinks it is starting to help and is very encourage since there are no side effects given his lengthy list of failed medication trials. Peanut Blancher agrees that increases warranted but wants to 1st see if insurance will cover this medication which patient understands. Discussed patient's bilateral hand tremor which he says has been present since he was a kid and that his mother has it is well; he says it is mostly just present when he is anxious. Also discussed again some tremorous movements with his mouth and patient says it does not bother him. He understands that this very well could be medication side effect and even tardive dyskinesia however he feels that the medications are helpful to the point where he does not want to lower change them and says that these potential side effects do not bother him. Mental Status Exam Mental Status Exam Narrative: Pt is alert and oriented; behavior is cooperative, friendly and calm; patient is not in distress; dressed in casual attire, well groomed; mood is described as depressed and affect congruent, although more calm, still down cast; eye contact appropriate; bilateral hand tremor and some mouth movements observable; Speech is normal rate, volume and prosody and not pressured; some psychomotor retardation present; thought process is organized and goal directed; Thought content is on tx; otherwise pertinent to relevant topics and without any delusional content, paranoid ideations or grandiosity; intermittent passive SI, but no active; no HI. There is no evidence of perceptual disturbance. Patients insight and judgment impaired but improving Diagnostics Vital Signs (24Hr): Vital Signs - 24 hr 04/17/23 18:50 04/18/23 07:55 Temperature 97.4 F 97.3 F Pulse Rate 89 70 Respiratory Rate 16 18 Blood Pressure 133/79 161/80 H Pulse Oximetry 95 95 Oxygen Delivery Method Room Air Room Air BMI result Body Mass Index 35.9 Labs 04/12/23 15:22 04/18/23 09:19 Labs: Laboratory Results - last 48 hr 04/16/23 04/16/23 04/16/23 12:56 16:54 19:56 POC Glucose 93 144 H 136 H 04/17/23 04/17/23 04/17/23 07:58 12:37 17:25 POC Glucose 122 H 100 109 04/17/23 21:13 POC Glucose 234 H Medications Medications Current Medications Acetaminophen (Acetaminophen 325 Mg Tablet) 650 mg PO Q6H PRN PRN Reason: Headache/Pain Mild Scale (1-3) Last Admin: 04/14/23 19:54 Dose: 650 mg Al Hydroxide/Mg Hydroxide (Magnesium Hydrox/Alum Hydrox 30 Ml Oral.Susp) 30 ml PO Q6H PRN PRN Reason: Heartburn/Nausea Clonidine HCl (Clonidine Hcl 0.1 Mg Tablet) 0.1 mg PO BID PRN; Protocol PRN Reason: Anxiety Last Admin: 04/17/23 19:01 Dose: 0.1 mg Doxepin HCl (Doxepin Hcl 25 Mg Capsule) 150 mg PO BEDTIME [facility] Last Admin: 04/17/23 20:59 Dose: 150 mg Gabapentin (Gabapentin 400 Mg Capsule) 800 mg PO TID [facility] Last Admin: 04/18/23 08:35 Dose: 800 mg Hydrochlorothiazide (Hydrochlorothiazide 25 Mg Tablet) 25 mg PO DAILY [facility] Last Admin: 04/18/23 08:36 Dose: 25 mg Hydroxyzine HCl (Hydroxyzine Hcl 25 Mg Tablet) 25 mg PO Q6H PRN PRN Reason: Anxiety Last Admin: 04/12/23 22:56 Dose: 25 mg Insulin Glargine (Insulin Glargine,Hum.Rec.Anlog 100 Unit/Ml 10 Ml Vial) 20 unit SUBCUT BEDTIME [facility] Last Admin: 04/17/23 20:58 Dose: 20 unit Lurasidone HCl (Lurasidone Hcl 40 Mg Tablet) 40 mg PO DAILY@1800 [facility] Last Admin: 04/17/23 19:01 Dose: 40 mg Magnesium Hydroxide (Milk Of Magnesia 30 Ml Oral.Susp) 30 ml PO DAILY PRN PRN Reason: Constipation Metformin HCl (Metformin Hcl 1,000 Mg Tablet) 1,000 mg PO BID [facility] Last Admin: 04/18/23 08:36 Dose: 1,000 mg Methadone HCl (Methadone Hcl 20 Mg/2 Ml Oral.Conc) 130 mg PO DAILY [facility] Last Admin: 04/18/23 08:36 Dose: 130 mg Metoprolol Succinate (Metoprolol Succinate Er 100 Mg Tab.Er.24h) 100 mg PO DAILY [facility]; Protocol Last Admin: 04/18/23 08:36 Dose: 100 mg Nicotine (Nicotine 21 Mg Patch.Td24) 21 mg TRANSDERMA DAILY PRN PRN Reason: smoking cessation Last Admin: 04/18/23 08:42 Dose: 21 mg Nicotine Polacrilex (Nicotine Polacrilex Lozenge 4 Mg Lozenge) 4 mg BUCCAL Q2H PRN PRN Reason: Nicotine Cravings Last Admin: 04/18/23 08:41 Dose: 4 mg Olanzapine (Olanzapine 5 Mg Tablet) 5 mg PO TID PRN PRN Reason: agitation Last Admin: 04/17/23 19:01 Dose: 5 mg Olanzapine (Olanzapine 10 Mg Tablet) 20 mg PO BEDTIME [facility] Last Admin: 04/17/23 20:59 Dose: 20 mg Olanzapine (Olanzapine 2.5 Mg Tablet) 2.5 mg PO Q4H PRN PRN Reason: milder anxiety Sitagliptin Phosphate (Sitagliptin Phosphate 25 Mg Tablet) 25 mg PO DAILY [facility] Last Admin: 04/18/23 08:36 Dose: 25 mg Sodium Chloride (Sodium Chloride 0.65 % Nasal 44 Ml Sprbtl) 1 spray NOSTRIL-B Q1H PRN PRN Reason: Nasal Congestion Last Admin: 04/16/23 16:56 Dose: 1 spray Allergies Allergies Allergy/AdvReac Type Severity Reaction Status Date / Time No Known Allergies Allergy Verified 04/12/23 13:28 Assessment & Plan Assessment & Plan (1) Bipolar II disorder: Status: Acute Code(s): F31.81 - Bipolar II disorder (2) Alcohol use disorder: Status: Acute Code(s): F10.90 - Alcohol use, unspecified, uncomplicated Plan HPI: Patient is a 52-year-old male with history of bipolar II depression alcohol use disorder in sustained remission presents for worsening depression, SI in the face of medication changes. He says that his mood and depression were overall well treated on Effexor however he became hypertensive which only resolved when Effexor was tapered and discontinued about a year ago; Lamictal briefly helped but caused excessive tremors and also discontinue. He says since then he reports slowly worsening depressive symptoms that have became severe over the past few weeks, patient citing diminished interest, low energy, poor concentration, low appetite, excessive sleepiness and then the beginning of passive SI and then SI with vague plan to overdose on medication. Patient tried to increase his methadone dose to see if that would help his mood which he did not. Feeling guilty and angry at himself, Patient's SI increased and so he called his therapist and then crisis for help. Patient denies any recent manic episodes; denies history of trauma or AVH. No past psychiatric admissions No history of self-harm or suicide attempts Reports history of manic episodes that last for about 3 days where he is excited, likely talking fast, not needing sleep, going on shopping sprees which have occurred during periods of sobriety; patient was started on Zyprexa which have helped keep away manic episodes Impression: Bipolar depression with hypomanic episodes; patient's depression moderately well treated with Effexor which unfortunately caused hypertension; patient currently depressed. Discussed medication options including lithium and Latuda, reviewing risks/side effects, including synergistic risk when combined with the Zyprexa, and patient wants to try Latuda. 04/17/23 feeling a little better; he can tell by the fact that he's not wishing he were , the ways he's interacting with others more and just overall feeling more hopeful. Says no side-effects from Latuda. Asked about increasing dose, but agrees to hold off for now given hx of side-effects from various meds...Pt says groups are helping a lot. Wants to go back to residential at discharge but feels needs more time to fully stabilize to which service writer advisor agrees. -some bilateral hand tremor and intermittently mouth movements observable; did not do AIMS; discussed early on with patient who was not concerned and understands it could possibly be due to medications that affect lthough patient is feeling a little better he remains quite depressed anxious as well. And asked if Latuda can be increased. Says he thinks it is starting to help and is very encourage since there are no side effects given his lengthy list of failed medication trials. Peanut Blancher agrees that increases warranted but wants to 1st see if insurance will cover this medication which patient understands. Discussed again patient's bilateral hand tremor which he says has been present since he was a kid and that his mother has it is well; he says it is mostly just present when he is anxious. Also discussed again some tremorous movements with his mouth and patient says it does not bother him. He understands that this very well could be medication side effect and even tardive dyskinesia however he feels that the medications are helpful to the point where he does not want to lower change them and says that these potential side effects do not bother him. Regarding therapeutic interactions Patient continuing to go to groups Plan: CV Q 15 minute checks Continue home medications Patient also on Lantus 20 mg q.h.s. Latuda 40 mg at dinner time; will likely need to titrate; may need prior authorization Med trials: Zyprexa Seroquel Lamictal: Cause tremors Effexor: Caused hypertension Paxil, Prozac, Zoloft: All good for anxiety but did not do much for depression Imipramine: Thinks was helpful; not sure why got off Wellbutrin: caused seizures Patient educated on: diagnosis, medication risk/benefits and therapeutic strategies Informed Consent: understands Reason for continued inpatient stay Substantial Risk for: rapid decompensation Time Spent With Patient Time: Total time managing care of this patient today ____ minutes.
[2023-04-18 09:57] LABS: Creatinine Clr Calc Pharmacy 76.1; Estimated Glomerular Filt Rate 58
[2023-04-18] MEDS: Sodium Chloride 0.65 % Nasal 44 ML SPRBTL 1 SPRAY NOSTRIL-B (12:33)
[2023-04-18 14:33] VITALS: BP 115/59; PULSE 80
[2023-04-18] MEDS: cloNIDine HCL 0.1 MG TABLET PO (14:36)
[2023-04-18] MEDS: OLANZapine 2.5 MG TABLET PO (14:36)
[2023-04-18 17:10] VITALS: BP 128/78; PULSE 76; RESP 16; TEMP 37.1; O2SAT 94
[2023-04-18] MEDS: Lurasidone HCl 40 MG TABLET PO (17:55)
[2023-04-18] MEDS: OLANZapine 10 MG TABLET 20 MG PO (20:37)
[2023-04-18] MEDS: Doxepin HCl 25 MG CAPSULE 150 MG PO (20:37)
[2023-04-19 07:00] VITALS: BMI 35.2
[2023-04-19 07:22] VITALS: BP 164/84; PULSE 68; RESP 16; TEMP 36.3; O2SAT 94
[2023-04-19] MEDS: SITagliptin Phosphate 25 MG TABLET PO (08:14)
[2023-04-19] MEDS: metFORMIN HCl 1,000 MG TABLET 1000 MG PO ×2 (08:14→20:37)
[2023-04-19] MEDS: hydroCHLOROthiazide 25 MG TABLET PO (08:14)
[2023-04-19] MEDS: Gabapentin 400 MG CAPSULE 800 MG PO ×3 (08:14→20:37)
[2023-04-19] MEDS: Metoprolol Succinate ER 100 MG TAB.ER.24H PO (08:14)
[2023-04-19] MEDS: methADONE HCl 20 MG/2 ML ORAL.CONC 130 MG PO (09:19)
--- NOTE | 2023-04-19 16:18 | HO.PSYCHPN ---
Subjective Subjective Date of Service: 04/19/23 Reason For Visit: depression/ si Interim History: Met with patient; discussed with team Patient again asks of Latuda could be increased citing continued depression; though feels like it is helping some feels mood remain significantly down that he will not be able to fend off depressive without further improvement; continues to deny any side effects. Patient remains engaged in treatment, going to groups, forthcoming and discussions with staff. Mental Status Exam Mental Status Exam Narrative: Pt is alert and oriented; behavior is cooperative, friendly and calm; patient is not in distress; dressed in casual attire, well groomed; mood is described as depressed and affect congruent, although more calm, still down cast; eye contact appropriate; bilateral hand tremor and some mouth movements observable; Speech is normal rate, volume and prosody and not pressured; some psychomotor retardation present; thought process is organized and goal directed; Thought content is on tx; otherwise pertinent to relevant topics and without any delusional content, paranoid ideations or grandiosity; intermittent passive SI, but no active; no HI. There is no evidence of perceptual disturbance. Patients insight and judgment impaired but improving Diagnostics Vital Signs (24Hr): Vital Signs - 24 hr 04/18/23 17:10 04/19/23 07:22 Temperature 98.7 F 97.3 F Pulse Rate 76 68 Respiratory Rate 16 16 Blood Pressure 128/78 164/84 H Pulse Oximetry 94 94 Oxygen Delivery Method Room Air Room Air BMI result Body Mass Index 35.2 Labs 04/12/23 15:22 04/18/23 09:19 Labs: Laboratory Results - last 48 hr 04/17/23 04/17/23 04/18/23 17:25 21:13 09:19 Creatinine 1.29 Estim Creat Clear Calc 76.1 Estimated GFR 58 POC Glucose 109 234 H 04/18/23 04/18/23 04/18/23 12:48 17:14 20:24 Creatinine Estim Creat Clear Calc Estimated GFR POC Glucose 103 137 H 143 H Medications Medications Current Medications Acetaminophen (Acetaminophen 325 Mg Tablet) 650 mg PO Q6H PRN PRN Reason: Headache/Pain Mild Scale (1-3) Last Admin: 04/14/23 19:54 Dose: 650 mg Al Hydroxide/Mg Hydroxide (Magnesium Hydrox/Alum Hydrox 30 Ml Oral.Susp) 30 ml PO Q6H PRN PRN Reason: Heartburn/Nausea Clonidine HCl (Clonidine Hcl 0.1 Mg Tablet) 0.1 mg PO BID PRN; Protocol PRN Reason: Anxiety Last Admin: 04/18/23 14:36 Dose: 0.1 mg Doxepin HCl (Doxepin Hcl 25 Mg Capsule) 150 mg PO BEDTIME [facility] Last Admin: 04/18/23 20:37 Dose: 150 mg Gabapentin (Gabapentin 400 Mg Capsule) 800 mg PO TID [facility] Last Admin: 04/19/23 14:28 Dose: 800 mg Hydrochlorothiazide (Hydrochlorothiazide 25 Mg Tablet) 25 mg PO DAILY [facility] Last Admin: 04/19/23 08:14 Dose: 25 mg Hydroxyzine HCl (Hydroxyzine Hcl 25 Mg Tablet) 25 mg PO Q6H PRN PRN Reason: Anxiety Last Admin: 04/12/23 22:56 Dose: 25 mg Insulin Glargine (Insulin Glargine,Hum.Rec.Anlog 100 Unit/Ml 10 Ml Vial) 20 unit SUBCUT BEDTIME [facility] Last Admin: 04/18/23 20:37 Dose: 20 unit Lurasidone HCl (Lurasidone Hcl 20 Mg Tablet) 60 mg PO DAILY@1800 [facility] Magnesium Hydroxide (Milk Of Magnesia 30 Ml Oral.Susp) 30 ml PO DAILY PRN PRN Reason: Constipation Metformin HCl (Metformin Hcl 1,000 Mg Tablet) 1,000 mg PO BID [facility] Last Admin: 04/19/23 08:14 Dose: 1,000 mg Methadone HCl (Methadone Hcl 20 Mg/2 Ml Oral.Conc) 130 mg PO DAILY [facility] Last Admin: 04/19/23 09:19 Dose: 130 mg Metoprolol Succinate (Metoprolol Succinate Er 100 Mg Tab.Er.24h) 100 mg PO DAILY [facility]; Protocol Last Admin: 04/19/23 08:14 Dose: 100 mg Nicotine (Nicotine 21 Mg Patch.Td24) 21 mg TRANSDERMA DAILY PRN PRN Reason: smoking cessation Last Admin: 04/19/23 08:38 Dose: 21 mg Nicotine Polacrilex (Nicotine Polacrilex Lozenge 4 Mg Lozenge) 4 mg BUCCAL Q2H PRN PRN Reason: Nicotine Cravings Last Admin: 04/19/23 14:39 Dose: 4 mg Olanzapine (Olanzapine 5 Mg Tablet) 5 mg PO TID PRN PRN Reason: agitation Last Admin: 04/17/23 19:01 Dose: 5 mg Olanzapine (Olanzapine 10 Mg Tablet) 20 mg PO BEDTIME [facility] Last Admin: 04/18/23 20:37 Dose: 20 mg Olanzapine (Olanzapine 2.5 Mg Tablet) 2.5 mg PO Q4H PRN PRN Reason: milder anxiety Last Admin: 04/18/23 14:36 Dose: 2.5 mg Sitagliptin Phosphate (Sitagliptin Phosphate 25 Mg Tablet) 25 mg PO DAILY [facility] Last Admin: 04/19/23 08:14 Dose: 25 mg Sodium Chloride (Sodium Chloride 0.65 % Nasal 44 Ml Sprbtl) 1 spray NOSTRIL-B Q1H PRN PRN Reason: Nasal Congestion Last Admin: 04/18/23 12:33 Dose: 1 spray Allergies Allergies Allergy/AdvReac Type Severity Reaction Status Date / Time No Known Allergies Allergy Verified 04/12/23 13:28 Assessment & Plan Assessment & Plan (1) Bipolar II disorder: Status: Acute Code(s): F31.81 - Bipolar II disorder (2) Alcohol use disorder: Status: Acute Code(s): F10.90 - Alcohol use, unspecified, uncomplicated Plan HPI: Patient is a 52-year-old male with history of bipolar II depression alcohol use disorder in sustained remission presents for worsening depression, SI in the face of medication changes. He says that his mood and depression were overall well treated on Effexor however he became hypertensive which only resolved when Effexor was tapered and discontinued about a year ago; Lamictal briefly helped but caused excessive tremors and also discontinue. He says since then he reports slowly worsening depressive symptoms that have became severe over the past few weeks, patient citing diminished interest, low energy, poor concentration, low appetite, excessive sleepiness and then the beginning of passive SI and then SI with vague plan to overdose on medication. Patient tried to increase his methadone dose to see if that would help his mood which he did not. Feeling guilty and angry at himself, Patient's SI increased and so he called his therapist and then crisis for help. Patient denies any recent manic episodes; denies history of trauma or AVH. No past psychiatric admissions No history of self-harm or suicide attempts Reports history of manic episodes that last for about 3 days where he is excited, likely talking fast, not needing sleep, going on shopping sprees which have occurred during periods of sobriety; patient was started on Zyprexa which have helped keep away manic episodes Impression: Bipolar depression with hypomanic episodes; patient's depression moderately well treated with Effexor which unfortunately caused hypertension; patient currently depressed. Discussed medication options including lithium and Latuda, reviewing risks/side effects, including synergistic risk when combined with the Zyprexa, and patient wants to try Latuda. 04/17/23 feeling a little better; he can tell by the fact that he's not wishing he were , the ways he's interacting with others more and just overall feeling more hopeful. Says no side-effects from Latuda. Asked about increasing dose, but agrees to hold off for now given hx of side-effects from various meds...Pt says groups are helping a lot. Wants to go back to alf at discharge but feels needs more time to fully stabilize to which mortgage or loan underwriter agrees. -some bilateral hand tremor and intermittently mouth movements observable; did not do AIMS; discussed early on with patient who was not concerned and understands it could possibly be due to medications that affect lthough patient is feeling a little better he remains quite depressed anxious as well. And asked if Latuda can be increased. Says he thinks it is starting to help and is very encourage since there are no side effects given his lengthy list of failed medication trials. Customer Complaint Service Supervisor agrees that increases warranted but wants to 1st see if insurance will cover this medication which patient understands. Discussed again patient's bilateral hand tremor which he says has been present since he was a kid and that his mother has it is well; he says it is mostly just present when he is anxious. Also discussed again some tremorous movements with his mouth and patient says it does not bother him. He understands that this very well could be medication side effect and even tardive dyskinesia however he feels that the medications are helpful to the point where he does not want to lower change them and says that these potential side effects do not bother him. Regarding therapeutic interactions Patient continuing to go to groups 04/19 Patient again asks of Latuda could be increased citing continued depression; though feels like it is helping some feels mood remain significantly down that he will not be able to fend off depressive without further improvement; continues to deny any side effects. Patient remains engaged in treatment, going to groups, forthcoming and discussions with staff. -able to determine that insurance will cover Latuda at higher doses; will increase to 60 mg for continued depression Plan: CV Q 15 minute checks Continue home medications Patient also on Lantus 20 mg q.h.s. INCREASE to Latuda 60 mg at dinner time; insurance will cover Med trials: Zyprexa Seroquel Lamictal: Cause tremors Effexor: Caused hypertension Paxil, Prozac, Zoloft: All good for anxiety but did not do much for depression Imipramine: Thinks was helpful; not sure why got off Wellbutrin: caused seizures Patient educated on: diagnosis and medication risk/benefits Informed Consent: understands Reason for continued inpatient stay Substantial Risk for: rapid decompensation Time Spent With Patient Time: Total time managing care of this patient today ____ minutes.
[2023-04-19 18:00] VITALS: BP 122/67; PULSE 76; RESP 18; TEMP 36.7; O2SAT 96
[2023-04-19] MEDS: cloNIDine HCL 0.1 MG TABLET PO (18:09)
[2023-04-19] MEDS: OLANZapine 2.5 MG TABLET PO (18:09)
[2023-04-19] MEDS: OLANZapine 10 MG TABLET 20 MG PO (20:36)
[2023-04-19] MEDS: Doxepin HCl 25 MG CAPSULE 150 MG PO (20:36)
[2023-04-20 06:00] VITALS: BP 165/89; PULSE 70; TEMP 37.1; O2SAT 94
[2023-04-20 08:15] VITALS: BP 165/89; PULSE 70; TEMP 37.1; O2SAT 94
--- NOTE | 2023-04-20 08:26 | HO.PSYCHPN ---
Subjective Subjective Date of Service: 04/20/23 Reason For Visit: depression/ si Interim History: met with patient; discussed with team grateful that Latuda can be increased and covered by insurance; hopeful that increase will lessen depression Mental Status Exam Mental Status Exam Narrative: Pt is alert and oriented; behavior is cooperative, friendly and calm; patient is not in distress; dressed in casual attire, well groomed; mood is described as not bad and affect congruent, more calm; eye contact appropriate; bilateral hand tremor and some mouth movements observable; Speech is normal rate, volume and prosody and not pressured; no psychomotor retardation present; thought process is organized and goal directed; Thought content is on tx; otherwise pertinent to relevant topics and without any delusional content, paranoid ideations or grandiosity; no SI; no HI. There is no evidence of perceptual disturbance. Patients insight and judgment fair. Diagnostics Vital Signs (24Hr): Vital Signs - 24 hr 04/19/23 18:00 Temperature 98.1 F Pulse Rate 76 Respiratory Rate 18 Blood Pressure 122/67 Pulse Oximetry 96 Oxygen Delivery Method Room Air BMI result Body Mass Index 35.2 Labs 04/12/23 15:22 04/18/23 09:19 Labs: Laboratory Results - last 48 hr 04/18/23 04/18/23 04/18/23 09:19 12:48 17:14 Creatinine 1.29 Estim Creat Clear Calc 76.1 Estimated GFR 58 POC Glucose 103 137 H 04/18/23 04/19/23 04/20/23 20:24 20:31 08:20 Creatinine Estim Creat Clear Calc Estimated GFR POC Glucose 143 H 194 H 120 H Medications Medications Current Medications Acetaminophen (Acetaminophen 325 Mg Tablet) 650 mg PO Q6H PRN PRN Reason: Headache/Pain Mild Scale (1-3) Last Admin: 04/14/23 19:54 Dose: 650 mg Al Hydroxide/Mg Hydroxide (Magnesium Hydrox/Alum Hydrox 30 Ml Oral.Susp) 30 ml PO Q6H PRN PRN Reason: Heartburn/Nausea Clonidine HCl (Clonidine Hcl 0.1 Mg Tablet) 0.1 mg PO BID PRN; Protocol PRN Reason: Anxiety Last Admin: 04/19/23 18:09 Dose: 0.1 mg Doxepin HCl (Doxepin Hcl 25 Mg Capsule) 150 mg PO BEDTIME [facility] Last Admin: 04/19/23 20:36 Dose: 150 mg Gabapentin (Gabapentin 400 Mg Capsule) 800 mg PO TID [facility] Last Admin: 04/19/23 20:37 Dose: 800 mg Hydrochlorothiazide (Hydrochlorothiazide 25 Mg Tablet) 25 mg PO DAILY [facility] Last Admin: 04/19/23 08:14 Dose: 25 mg Hydroxyzine HCl (Hydroxyzine Hcl 25 Mg Tablet) 25 mg PO Q6H PRN PRN Reason: Anxiety Last Admin: 04/12/23 22:56 Dose: 25 mg Insulin Glargine (Insulin Glargine,Hum.Rec.Anlog 100 Unit/Ml 10 Ml Vial) 20 unit SUBCUT BEDTIME [facility] Last Admin: 04/19/23 20:35 Dose: 20 unit Lurasidone HCl (Lurasidone Hcl 20 Mg Tablet) 60 mg PO DAILY@1800 [facility] Last Admin: 04/19/23 17:51 Dose: 60 mg Magnesium Hydroxide (Milk Of Magnesia 30 Ml Oral.Susp) 30 ml PO DAILY PRN PRN Reason: Constipation Metformin HCl (Metformin Hcl 1,000 Mg Tablet) 1,000 mg PO BID [facility] Last Admin: 04/19/23 20:37 Dose: 1,000 mg Methadone HCl (Methadone Hcl 20 Mg/2 Ml Oral.Conc) 130 mg PO DAILY [facility] Last Admin: 04/19/23 09:19 Dose: 130 mg Metoprolol Succinate (Metoprolol Succinate Er 100 Mg Tab.Er.24h) 100 mg PO DAILY [facility]; Protocol Last Admin: 04/19/23 08:14 Dose: 100 mg Nicotine (Nicotine 21 Mg Patch.Td24) 21 mg TRANSDERMA DAILY PRN PRN Reason: smoking cessation Last Admin: 04/19/23 08:38 Dose: 21 mg Nicotine Polacrilex (Nicotine Polacrilex Lozenge 4 Mg Lozenge) 4 mg BUCCAL Q2H PRN PRN Reason: Nicotine Cravings Last Admin: 04/19/23 17:54 Dose: 4 mg Olanzapine (Olanzapine 5 Mg Tablet) 5 mg PO TID PRN PRN Reason: agitation Last Admin: 04/17/23 19:01 Dose: 5 mg Olanzapine (Olanzapine 10 Mg Tablet) 20 mg PO BEDTIME [facility] Last Admin: 04/19/23 20:36 Dose: 20 mg Olanzapine (Olanzapine 2.5 Mg Tablet) 2.5 mg PO Q4H PRN PRN Reason: milder anxiety Last Admin: 04/19/23 18:09 Dose: 2.5 mg Sitagliptin Phosphate (Sitagliptin Phosphate 25 Mg Tablet) 25 mg PO DAILY [facility] Last Admin: 04/19/23 08:14 Dose: 25 mg Sodium Chloride (Sodium Chloride 0.65 % Nasal 44 Ml Sprbtl) 1 spray NOSTRIL-B Q1H PRN PRN Reason: Nasal Congestion Last Admin: 04/18/23 12:33 Dose: 1 spray Allergies Allergies Allergy/AdvReac Type Severity Reaction Status Date / Time No Known Allergies Allergy Verified 04/12/23 13:28 Assessment & Plan Assessment & Plan (1) Bipolar II disorder: Status: Acute Code(s): F31.81 - Bipolar II disorder (2) Alcohol use disorder: Status: Acute Code(s): F10.90 - Alcohol use, unspecified, uncomplicated Plan HPI: Patient is a 52-year-old male with history of bipolar II depression alcohol use disorder in sustained remission presents for worsening depression, SI in the face of medication changes. He says that his mood and depression were overall well treated on Effexor however he became hypertensive which only resolved when Effexor was tapered and discontinued about a year ago; Lamictal briefly helped but caused excessive tremors and also discontinue. He says since then he reports slowly worsening depressive symptoms that have became severe over the past few weeks, patient citing diminished interest, low energy, poor concentration, low appetite, excessive sleepiness and then the beginning of passive SI and then SI with vague plan to overdose on medication. Patient tried to increase his methadone dose to see if that would help his mood which he did not. Feeling guilty and angry at himself, Patient's SI increased and so he called his therapist and then crisis for help. Patient denies any recent manic episodes; denies history of trauma or AVH. No past psychiatric admissions No history of self-harm or suicide attempts Reports history of manic episodes that last for about 3 days where he is excited, likely talking fast, not needing sleep, going on shopping sprees which have occurred during periods of sobriety; patient was started on Zyprexa which have helped keep away manic episodes Impression: Bipolar depression with hypomanic episodes; patient's depression moderately well treated with Effexor which unfortunately caused hypertension; patient currently depressed. Discussed medication options including lithium and Latuda, reviewing risks/side effects, including synergistic risk when combined with the Zyprexa, and patient wants to try Latuda. 04/17/23 feeling a little better; he can tell by the fact that he's not wishing he were , the ways he's interacting with others more and just overall feeling more hopeful. Says no side-effects from Latuda. Asked about increasing dose, but agrees to hold off for now given hx of side-effects from various meds...Pt says groups are helping a lot. Wants to go back to [facility] at discharge but feels needs more time to fully stabilize to which sports book writer agrees. -some bilateral hand tremor and intermittently mouth movements observable; did not do AIMS; discussed early on with patient who was not concerned and understands it could possibly be due to medications that affect lthough patient is feeling a little better he remains quite depressed anxious as well. And asked if Latuda can be increased. Says he thinks it is starting to help and is very encourage since there are no side effects given his lengthy list of failed medication trials. Logistics Associate agrees that increases warranted but wants to 1st see if insurance will cover this medication which patient understands. Discussed again patient's bilateral hand tremor which he says has been present since he was a kid and that his mother has it is well; he says it is mostly just present when he is anxious. Also discussed again some tremorous movements with his mouth and patient says it does not bother him. He understands that this very well could be medication side effect and even tardive dyskinesia however he feels that the medications are helpful to the point where he does not want to lower change them and says that these potential side effects do not bother him. Regarding therapeutic interactions Patient continuing to go to groups 04/19 Patient again asks of Latuda could be increased citing continued depression; though feels like it is helping some feels mood remain significantly down that he will not be able to fend off depressive without further improvement; continues to deny any side effects. Patient remains engaged in treatment, going to groups, forthcoming and discussions with staff. -able to determine that insurance will cover Latuda at higher doses; will increase to 60 mg for continued depression 04/20 pt says feeling a little better and depression not bad hoping that increased Latuda will be effective. Will continue to monitor pt for tolerance since he has historically gotten intolerable side-effects from medications. However, if increased Latuda tolerated and effective will proceed with dc planning Plan: CV Q 15 minute checks Continue home medications Patient also on Lantus 20 mg q.h.s. INCREASE to Latuda 60 mg at dinner time; insurance will cover Med trials: Zyprexa Seroquel Lamictal: Cause tremors Effexor: Caused hypertension Paxil, Prozac, Zoloft: All good for anxiety but did not do much for depression Imipramine: Thinks was helpful; not sure why got off Wellbutrin: caused seizures Patient educated on: diagnosis and medication risk/benefits Informed Consent: understands Reason for continued inpatient stay Substantial Risk for: stable for discharge Time Spent With Patient Time: Total time managing care of this patient today ____ minutes.
[2023-04-20] MEDS: methADONE HCl 20 MG/2 ML ORAL.CONC 130 MG PO (08:39)
[2023-04-20] MEDS: Metoprolol Succinate ER 100 MG TAB.ER.24H PO (08:41)
[2023-04-20] MEDS: Gabapentin 400 MG CAPSULE 800 MG PO ×2 (08:41→14:13)
[2023-04-20] MEDS: metFORMIN HCl 1,000 MG TABLET 1000 MG PO ×2 (08:42→20:57)
[2023-04-20] MEDS: OLANZapine 2.5 MG TABLET PO (15:26)
[2023-04-20 15:27] VITALS: BP 130/70; PULSE 85; RESP 18
[2023-04-20 18:00] VITALS: BP 117/75; PULSE 85; RESP 18; TEMP 36.3; O2SAT 96
[2023-04-21 08:32] VITALS: BP 140/98; PULSE 71; RESP 18; TEMP 36.3; O2SAT 97
[2023-04-21] MEDS: metFORMIN HCl 1,000 MG TABLET 1000 MG PO ×2 (08:36→21:13)
[2023-04-21] MEDS: methADONE HCl 20 MG/2 ML ORAL.CONC 130 MG PO (08:39)
--- NOTE | 2023-04-21 15:44 | HO.PSYCHPN ---
Subjective Subjective Date of Service: 04/21/23 Reason For Visit: depression/ si Interim History: Pt seen, discussed with team. Focus is on discharge. Finds Latuda helpful Sleep is adequate Several questions regarding OP referrals. Visable in milieu, interactive with his peer group. Medication Compliance: Yes Side effects from medications: No Attending Groups: Yes Review of Systems Acute medical concerns: No Medical Review of Systems: unchanged Review of Systems Review of Systems Yes all other systems are reviewed and are negative Mental Status Exam Mental Status Exam Patient Appearance: Appropriate Level of Consciousness: Alert Patient Behavior: Anxious Mood Description: Anxious Affect Description: Anxious Patient Cognition Impaired: No Ability to Follow Directions: Good Speech Pattern: Spontaneous Speech Memory Description: Intact Thought Process: Goal Oriented Thought Content: positive for [place] Judgement: Fair Diagnostics Vital Signs (24Hr): Vital Signs - 24 hr 04/20/23 18:00 04/21/23 08:32 Temperature 97.3 F 97.4 F Pulse Rate 85 71 Respiratory Rate 18 18 Blood Pressure 117/75 140/98 H Pulse Oximetry 96 97 Oxygen Delivery Method Room Air Room Air BMI result Body Mass Index 35.2 Labs 04/12/23 15:22 04/18/23 09:19 Labs: Laboratory Results - last 48 hr 04/19/23 04/20/23 04/20/23 20:31 08:20 12:13 POC Glucose 194 H 120 H 65 04/20/23 04/20/23 04/21/23 16:58 21:10 08:28 POC Glucose 141 H 135 H 112 Medications Medications Current Medications Acetaminophen (Acetaminophen 325 Mg Tablet) 650 mg PO Q6H PRN PRN Reason: Headache/Pain Mild Scale (1-3) Last Admin: 04/14/23 19:54 Dose: 650 mg Al Hydroxide/Mg Hydroxide (Magnesium Hydrox/Alum Hydrox 30 Ml Oral.Susp) 30 ml PO Q6H PRN PRN Reason: Heartburn/Nausea Clonidine HCl (Clonidine Hcl 0.1 Mg Tablet) 0.1 mg PO BID PRN; Protocol PRN Reason: Anxiety Last Admin: 04/20/23 15:26 Dose: 0.1 mg Doxepin HCl (Doxepin Hcl 25 Mg Capsule) 150 mg PO BEDTIME [facility] Last Admin: 04/20/23 20:57 Dose: 150 mg Gabapentin (Gabapentin 400 Mg Capsule) 800 mg PO TID [facility] Last Admin: 04/21/23 14:33 Dose: 800 mg Hydrochlorothiazide (Hydrochlorothiazide 25 Mg Tablet) 25 mg PO DAILY [facility] Last Admin: 04/21/23 08:36 Dose: 25 mg Hydroxyzine HCl (Hydroxyzine Hcl 25 Mg Tablet) 25 mg PO Q6H PRN PRN Reason: Anxiety Last Admin: 04/12/23 22:56 Dose: 25 mg Insulin Glargine (Insulin Glargine,Hum.Rec.Anlog 100 Unit/Ml 10 Ml Vial) 20 unit SUBCUT BEDTIME [facility] Last Admin: 04/20/23 20:56 Dose: 20 unit Lurasidone HCl (Lurasidone Hcl 20 Mg Tablet) 60 mg PO DAILY@1800 [facility] Last Admin: 04/20/23 17:46 Dose: 60 mg Magnesium Hydroxide (Milk Of Magnesia 30 Ml Oral.Susp) 30 ml PO DAILY PRN PRN Reason: Constipation Metformin HCl (Metformin Hcl 1,000 Mg Tablet) 1,000 mg PO BID [facility] Last Admin: 04/21/23 08:36 Dose: 1,000 mg Methadone HCl (Methadone Hcl 20 Mg/2 Ml Oral.Conc) 130 mg PO DAILY [facility] Last Admin: 04/21/23 08:39 Dose: 130 mg Metoprolol Succinate (Metoprolol Succinate Er 100 Mg Tab.Er.24h) 100 mg PO DAILY [facility]; Protocol Last Admin: 04/21/23 08:36 Dose: 100 mg Nicotine (Nicotine 21 Mg Patch.Td24) 21 mg TRANSDERMA DAILY PRN PRN Reason: smoking cessation Last Admin: 04/21/23 08:36 Dose: 21 mg Nicotine Polacrilex (Nicotine Polacrilex Lozenge 4 Mg Lozenge) 4 mg BUCCAL Q2H PRN PRN Reason: Nicotine Cravings Last Admin: 04/21/23 14:40 Dose: 4 mg Olanzapine (Olanzapine 5 Mg Tablet) 5 mg PO TID PRN PRN Reason: agitation Last Admin: 04/17/23 19:01 Dose: 5 mg Olanzapine (Olanzapine 10 Mg Tablet) 20 mg PO BEDTIME [facility] Last Admin: 04/20/23 20:57 Dose: 20 mg Olanzapine (Olanzapine 2.5 Mg Tablet) 2.5 mg PO Q4H PRN PRN Reason: milder anxiety Last Admin: 04/20/23 15:26 Dose: 2.5 mg Sitagliptin Phosphate (Sitagliptin Phosphate 25 Mg Tablet) 25 mg PO DAILY [facility] Last Admin: 04/21/23 08:36 Dose: 25 mg Sodium Chloride (Sodium Chloride 0.65 % Nasal 44 Ml Sprbtl) 1 spray NOSTRIL-B Q1H PRN PRN Reason: Nasal Congestion Last Admin: 04/18/23 12:33 Dose: 1 spray Allergies Allergies Allergy/AdvReac Type Severity Reaction Status Date / Time No Known Allergies Allergy Verified 04/12/23 13:28 Assessment & Plan Assessment & Plan (1) Bipolar II disorder: Status: Acute Code(s): F31.81 - Bipolar II disorder (2) Alcohol use disorder: Status: Acute Code(s): F10.90 - Alcohol use, unspecified, uncomplicated Plan HPI: Patient is a 52-year-old male with history of bipolar II depression alcohol use disorder in sustained remission presents for worsening depression, SI in the face of medication changes. He says that his mood and depression were overall well treated on Effexor however he became hypertensive which only resolved when Effexor was tapered and discontinued about a year ago; Lamictal briefly helped but caused excessive tremors and also discontinue. He says since then he reports slowly worsening depressive symptoms that have became severe over the past few weeks, patient citing diminished interest, low energy, poor concentration, low appetite, excessive sleepiness and then the beginning of passive SI and then SI with vague plan to overdose on medication. Patient tried to increase his methadone dose to see if that would help his mood which he did not. Feeling guilty and angry at himself, Patient's SI increased and so he called his therapist and then crisis for help. Patient denies any recent manic episodes; denies history of trauma or AVH. No past psychiatric admissions No history of self-harm or suicide attempts Reports history of manic episodes that last for about 3 days where he is excited, likely talking fast, not needing sleep, going on shopping sprees which have occurred during periods of sobriety; patient was started on Zyprexa which have helped keep away manic episodes Impression: Bipolar depression with hypomanic episodes; patient's depression moderately well treated with Effexor which unfortunately caused hypertension; patient currently depressed. Discussed medication options including lithium and Latuda, reviewing risks/side effects, including synergistic risk when combined with the Zyprexa, and patient wants to try Latuda. 04/17/23 feeling a little better; he can tell by the fact that he's not wishing he were , the ways he's interacting with others more and just overall feeling more hopeful. Says no side-effects from Latuda. Asked about increasing dose, but agrees to hold off for now given hx of side-effects from various meds...Pt says groups are helping a lot. Wants to go back to nursing home at discharge but feels needs more time to fully stabilize to which physician underwriter agrees. -some bilateral hand tremor and intermittently mouth movements observable; did not do AIMS; discussed early on with patient who was not concerned and understands it could possibly be due to medications that affect lthough patient is feeling a little better he remains quite depressed anxious as well. And asked if Latuda can be increased. Says he thinks it is starting to help and is very encourage since there are no side effects given his lengthy list of failed medication trials. Commercial Airplane Pilot agrees that increases warranted but wants to 1st see if insurance will cover this medication which patient understands. Discussed again patient's bilateral hand tremor which he says has been present since he was a kid and that his mother has it is well; he says it is mostly just present when he is anxious. Also discussed again some tremorous movements with his mouth and patient says it does not bother him. He understands that this very well could be medication side effect and even tardive dyskinesia however he feels that the medications are helpful to the point where he does not want to lower change them and says that these potential side effects do not bother him. Regarding therapeutic interactions Patient continuing to go to groups 04/19 Patient again asks of Latuda could be increased citing continued depression; though feels like it is helping some feels mood remain significantly down that he will not be able to fend off depressive without further improvement; continues to deny any side effects. Patient remains engaged in treatment, going to groups, forthcoming and discussions with staff. -able to determine that insurance will cover Latuda at higher doses; will increase to 60 mg for continued depression 04/20 pt says feeling a little better and depression not bad hoping that increased Latuda will be effective. Will continue to monitor pt for tolerance since he has historically gotten intolerable side-effects from medications. However, if increased Latuda tolerated and effective will proceed with dc planning 04/21/23 Continue tx Plan: CV Q 15 minute checks Continue home medications Patient also on Lantus 20 mg q.h.s. INCREASE to Latuda 60 mg at dinner time; insurance will cover Med trials: Zyprexa Seroquel Lamictal: Cause tremors Effexor: Caused hypertension Paxil, Prozac, Zoloft: All good for anxiety but did not do much for depression Imipramine: Thinks was helpful; not sure why got off Wellbutrin: caused seizures Informed Consent: understands Reason for continued inpatient stay Substantial Risk for: rapid decompensation Time Spent With Patient Time: Total time managing care of this patient today ____ minutes.
[2023-04-21 18:00] VITALS: BP 149/81; PULSE 92; RESP 16; TEMP 36.3
[2023-04-22 06:00] VITALS: BP 146/95; PULSE 80; RESP 16; TEMP 36.8; O2SAT 99
[2023-04-22] MEDS: metFORMIN HCl 1,000 MG TABLET 1000 MG PO (08:21)
[2023-04-22] MEDS: methADONE HCl 20 MG/2 ML ORAL.CONC 130 MG PO (08:22)
[2023-04-22 17:10] VITALS: BP 133/73; PULSE 78; TEMP 36.1
[2023-04-22] MEDS: OLANZapine 2.5 MG TABLET PO (17:13)
--- NOTE | 2023-04-22 20:07 | HO.PSYCHPN ---
Subjective Subjective Date of Service: 04/22/23 Reason For Visit: depression/ si Interim History: Pt seen, discussed with the team. He is visable and milieu involved and integrated. Today, no specific questions regarding aftercare planning or discharge. Offering advice to a peer regarding Latuda and how well he feels it has been for his symptoms. Medication Compliance: Yes Side effects from medications: No Attending Groups: Yes Review of Systems Acute medical concerns: No Medical Review of Systems: unchanged Review of Systems Review of Systems Yes all other systems are reviewed and are negative Mental Status Exam Mental Status Exam Patient Appearance: Appropriate Level of Consciousness: Alert Patient Behavior: Anxious Mood Description: Anxious Affect Description: Anxious Patient Cognition Impaired: No Ability to Follow Directions: Good Speech Pattern: Spontaneous Speech Memory Description: Intact Thought Process: Goal Oriented Thought Content: positive for [place] Judgement: Fair Diagnostics Vital Signs (24Hr): Vital Signs - 24 hr 04/22/23 06:00 04/22/23 17:10 Temperature 98.3 F 97.0 F Pulse Rate 80 78 Respiratory Rate 16 Blood Pressure 146/95 H 133/73 Pulse Oximetry 99 Oxygen Delivery Method Room Air BMI result Body Mass Index 35.2 Labs 04/12/23 15:22 04/18/23 09:19 Labs: Laboratory Results - last 48 hr 04/20/23 04/21/23 04/21/23 21:10 08:28 20:53 POC Glucose 135 H 112 201 H 04/22/23 08:11 POC Glucose 130 H Medications Medications Current Medications Acetaminophen (Acetaminophen 325 Mg Tablet) 650 mg PO Q6H PRN PRN Reason: Headache/Pain Mild Scale (1-3) Last Admin: 04/14/23 19:54 Dose: 650 mg Al Hydroxide/Mg Hydroxide (Magnesium Hydrox/Alum Hydrox 30 Ml Oral.Susp) 30 ml PO Q6H PRN PRN Reason: Heartburn/Nausea Clonidine HCl (Clonidine Hcl 0.1 Mg Tablet) 0.1 mg PO BID PRN; Protocol PRN Reason: Anxiety Last Admin: 04/22/23 17:14 Dose: 0.1 mg Doxepin HCl (Doxepin Hcl 25 Mg Capsule) 150 mg PO BEDTIME [facility] Last Admin: 04/21/23 21:12 Dose: 150 mg Gabapentin (Gabapentin 400 Mg Capsule) 800 mg PO TID [facility] Last Admin: 04/22/23 14:29 Dose: 800 mg Hydrochlorothiazide (Hydrochlorothiazide 25 Mg Tablet) 25 mg PO DAILY [facility] Last Admin: 04/22/23 08:22 Dose: 25 mg Hydroxyzine HCl (Hydroxyzine Hcl 25 Mg Tablet) 25 mg PO Q6H PRN PRN Reason: Anxiety Last Admin: 04/12/23 22:56 Dose: 25 mg Insulin Glargine (Insulin Glargine,Hum.Rec.Anlog 100 Unit/Ml 10 Ml Vial) 20 unit SUBCUT BEDTIME [facility] Last Admin: 04/21/23 21:10 Dose: 20 unit Lurasidone HCl (Lurasidone Hcl 20 Mg Tablet) 60 mg PO DAILY@1800 [facility] Last Admin: 04/22/23 18:08 Dose: 60 mg Magnesium Hydroxide (Milk Of Magnesia 30 Ml Oral.Susp) 30 ml PO DAILY PRN PRN Reason: Constipation Metformin HCl (Metformin Hcl 1,000 Mg Tablet) 1,000 mg PO BID [facility] Last Admin: 04/22/23 08:21 Dose: 1,000 mg Methadone HCl (Methadone Hcl 20 Mg/2 Ml Oral.Conc) 130 mg PO DAILY [facility] Last Admin: 04/22/23 08:22 Dose: 130 mg Metoprolol Succinate (Metoprolol Succinate Er 100 Mg Tab.Er.24h) 100 mg PO DAILY [facility]; Protocol Last Admin: 04/22/23 08:21 Dose: 100 mg Nicotine (Nicotine 21 Mg Patch.Td24) 21 mg TRANSDERMA DAILY PRN PRN Reason: smoking cessation Last Admin: 04/22/23 08:22 Dose: 21 mg Nicotine Polacrilex (Nicotine Polacrilex Lozenge 4 Mg Lozenge) 4 mg BUCCAL Q2H PRN PRN Reason: Nicotine Cravings Last Admin: 04/22/23 17:13 Dose: 4 mg Olanzapine (Olanzapine 5 Mg Tablet) 5 mg PO TID PRN PRN Reason: agitation Last Admin: 04/17/23 19:01 Dose: 5 mg Olanzapine (Olanzapine 10 Mg Tablet) 20 mg PO BEDTIME [facility] Last Admin: 04/21/23 21:12 Dose: 20 mg Olanzapine (Olanzapine 2.5 Mg Tablet) 2.5 mg PO Q4H PRN PRN Reason: milder anxiety Last Admin: 04/22/23 17:13 Dose: 2.5 mg Sitagliptin Phosphate (Sitagliptin Phosphate 25 Mg Tablet) 25 mg PO DAILY [facility] Last Admin: 04/22/23 08:22 Dose: 25 mg Sodium Chloride (Sodium Chloride 0.65 % Nasal 44 Ml Sprbtl) 1 spray NOSTRIL-B Q1H PRN PRN Reason: Nasal Congestion Last Admin: 04/18/23 12:33 Dose: 1 spray Allergies Allergies Allergy/AdvReac Type Severity Reaction Status Date / Time No Known Allergies Allergy Verified 04/12/23 13:28 Assessment & Plan Assessment & Plan (1) Bipolar II disorder: Status: Acute Code(s): F31.81 - Bipolar II disorder (2) Alcohol use disorder: Status: Acute Code(s): F10.90 - Alcohol use, unspecified, uncomplicated Plan HPI: Patient is a 52-year-old male with history of bipolar II depression alcohol use disorder in sustained remission presents for worsening depression, SI in the face of medication changes. He says that his mood and depression were overall well treated on Effexor however he became hypertensive which only resolved when Effexor was tapered and discontinued about a year ago; Lamictal briefly helped but caused excessive tremors and also discontinue. He says since then he reports slowly worsening depressive symptoms that have became severe over the past few weeks, patient citing diminished interest, low energy, poor concentration, low appetite, excessive sleepiness and then the beginning of passive SI and then SI with vague plan to overdose on medication. Patient tried to increase his methadone dose to see if that would help his mood which he did not. Feeling guilty and angry at himself, Patient's SI increased and so he called his therapist and then crisis for help. Patient denies any recent manic episodes; denies history of trauma or AVH. No past psychiatric admissions No history of self-harm or suicide attempts Reports history of manic episodes that last for about 3 days where he is excited, likely talking fast, not needing sleep, going on shopping sprees which have occurred during periods of sobriety; patient was started on Zyprexa which have helped keep away manic episodes Impression: Bipolar depression with hypomanic episodes; patient's depression moderately well treated with Effexor which unfortunately caused hypertension; patient currently depressed. Discussed medication options including lithium and Latuda, reviewing risks/side effects, including synergistic risk when combined with the Zyprexa, and patient wants to try Latuda. 04/17/23 feeling a little better; he can tell by the fact that he's not wishing he were , the ways he's interacting with others more and just overall feeling more hopeful. Says no side-effects from Latuda. Asked about increasing dose, but agrees to hold off for now given hx of side-effects from various meds...Pt says groups are helping a lot. [facility] but feels needs more time to fully stabilize to which check writer salesperson agrees. -some bilateral hand tremor and intermittently mouth movements observable; did not do AIMS; discussed early on with patient who was not concerned and understands it could possibly be due to medications that affect lthough patient is feeling a little better he remains quite depressed anxious as well. And asked if Latuda can be increased. Says he thinks it is starting to help and is very encourage since there are no side effects given his lengthy list of failed medication trials. Abrasive Mixer agrees that increases warranted but wants to 1st see if insurance will cover this medication which patient understands. Discussed again patient's bilateral hand tremor which he says has been present since he was a kid and that his mother has it is well; he says it is mostly just present when he is anxious. Also discussed again some tremorous movements with his mouth and patient says it does not bother him. He understands that this very well could be medication side effect and even tardive dyskinesia however he feels that the medications are helpful to the point where he does not want to lower change them and says that these potential side effects do not bother him. Regarding therapeutic interactions Patient continuing to go to groups 04/19 Patient again asks of Latuda could be increased citing continued depression; though feels like it is helping some feels mood remain significantly down that he will not be able to fend off depressive without further improvement; continues to deny any side effects. Patient remains engaged in treatment, going to groups, forthcoming and discussions with staff. -able to determine that insurance will cover Latuda at higher doses; will increase to 60 mg for continued depression 04/20 pt says feeling a little better and depression not bad hoping that increased Latuda will be effective. Will continue to monitor pt for tolerance since he has historically gotten intolerable side-effects from medications. However, if increased Latuda tolerated and effective will proceed with dc planning 04/22 Continue treatment Plan: CV Q 15 minute checks Continue home medications Patient also on Lantus 20 mg q.h.s. INCREASE to Latuda 60 mg at dinner time; insurance will cover Med trials: Zyprexa Seroquel Lamictal: Cause tremors Effexor: Caused hypertension Paxil, Prozac, Zoloft: All good for anxiety but did not do much for depression Imipramine: Thinks was helpful; not sure why got off Wellbutrin: caused seizures Patient educated on: medication risk/benefits Informed Consent: understands Reason for continued inpatient stay Substantial Risk for: rapid decompensation Time Spent With Patient Time: Total time managing care of this patient today ____ minutes.
--- NOTE | 2023-04-22 22:49 | P.DS_ITS ---
DS: Providers Provider Date of Service: 04/23/23 Date of admission: 04/12/23 21:24 Date of discharge: 04/23/23 Primary care physician: Unknown Physician Attending physician on admission: Eric Hammond Attending physician on discharge: Eric Hammond DS: Diagnosis Discharge Diagnosis (1) Bipolar II disorder: Status: Acute (2) Alcohol use disorder: Status: Acute DS: Medications Discharge Medications Home Medications: Home Medications Medication Instructions Recorded Confirmed blood-glucose meter #1 ea 04/20/20 04/13/23 Previous Rx's Medication Instructions Recorded lurasidone 80 mg tablet 80 mg PO DAILY 30 days #30 tabs 04/13/23 chlorthalidone 25 mg tablet 25 mg PO DAILY 30 days #30 tabs 04/22/23 clonidine HCl 0.1 mg tablet 0.1 mg PO BID PRN Anxiety 30 days 04/22/23 #60 tabs doxepin 150 mg capsule 150 mg PO BEDTIME 30 days #30 caps 04/22/23 gabapentin 400 mg capsule 800 mg (2 x 400 mg) PO TID 30 days 04/22/23 #180 caps insulin glargine 100 unit/mL 20 unit (0.2 mL) subcut BEDTIME 30 04/22/23 subcutaneous solution (Lantus days #6 mL U-100 Insulin) lurasidone 60 mg tablet 60 mg PO DAILY@1800 30 days #30 04/22/23 tabs metformin 1,000 mg tablet 1,000 mg PO BID 30 days #60 tabs 04/22/23 methadone 10 mg/mL oral 130 mg (13 mL) PO DAILY #0 mL 04/22/23 concentrate (Methadose) metoprolol succinate 100 mg 100 mg PO DAILY 30 days #30 tabs 04/22/23 tablet,extended release 24 hr nicotine (polacrilex) 4 mg buccal 4 mg buccal Q2H PRN Nicotine 04/22/23 lozenge Cravings 30 days #108 ea nicotine 21 mg/24 hr daily 21 mg transdermal DAILY PRN 04/22/23 transdermal patch smoking cessation 28 days #28 ea olanzapine 2.5 mg tablet 2.5 mg PO Q4H PRN milder anxiety 04/22/23 30 days #60 tabs olanzapine 20 mg tablet 20 mg PO BEDTIME 30 days #30 tabs 04/22/23 sitagliptin phosphate 25 mg tablet 25 mg PO DAILY 30 days #30 tabs 04/22/23 (Kacie) Mental Status Exam Mental Status Exam Patient Appearance: Appropriate Level of Consciousness: Alert Patient Behavior: Appropriate Mood Description: Calm Affect Description: Anxious Patient Cognition Impaired: No Ability to Follow Directions: Good Speech Pattern: Spontaneous Speech Memory Description: Intact Hallucinations: None Delusions: Not Present Thought Process: Goal Oriented Thought Content: positive for [place] (no SI/HI) Judgement: Fair Data Data Completed and Pending Completed studies during hospitalization [Text1]: 04/16/23 04/16/23 04/16/23 08:31 12:56 16:54 Creatinine Estim Creat Clear Calc Estimated GFR POC Glucose 169 H 93 144 H 04/16/23 04/17/23 04/17/23 19:56 07:58 12:37 Creatinine Estim Creat Clear Calc Estimated GFR POC Glucose 136 H 122 H 100 04/17/23 04/17/23 04/18/23 17:25 21:13 09:19 Creatinine 1.29 Estim Creat Clear Calc 76.1 Estimated GFR 58 POC Glucose 109 234 H 04/18/23 04/18/23 04/18/23 12:48 17:14 20:24 Creatinine Estim Creat Clear Calc Estimated GFR POC Glucose 103 137 H 143 H 04/19/23 04/20/23 04/20/23 20:31 08:20 12:13 Creatinine Estim Creat Clear Calc Estimated GFR POC Glucose 194 H 120 H 65 04/20/23 04/20/23 04/21/23 16:58 21:10 08:28 Creatinine Estim Creat Clear Calc Estimated GFR POC Glucose 141 H 135 H 112 04/21/23 04/22/23 04/22/23 20:53 08:11 20:36 Creatinine Estim Creat Clear Calc Estimated GFR POC Glucose 201 H 130 H 122 H DS: Summary Hospital Course Hospital Course: HPI: Patient is a 52-year-old male with history of bipolar II depression alcohol use disorder in sustained remission presents for worsening depression, SI in the face of medication changes. He says that his mood and depression were overall well treated on Effexor however he became hypertensive which only resolved when Effexor was tapered and discontinued about a year ago; Lamictal briefly helped but caused excessive tremors and also discontinue. He says since then he reports slowly worsening depressive symptoms that have became severe over the past few weeks, patient citing diminished interest, low energy, poor concentration, low appetite, excessive sleepiness and then the beginning of passive SI and then SI with vague plan to overdose on medication. Patient tried to increase his methadone dose to see if that would help his mood which he did not. Feeling guilty and angry at himself, Patient's SI increased and so he called his therapist and then crisis for help. Patient denies any recent manic episodes; denies history of trauma or AVH. No past psychiatric admissions No history of self-harm or suicide attempts Reports history of manic episodes that last for about 3 days where he is excited, likely talking fast, not needing sleep, going on shopping sprees which have occurred during periods of sobriety; patient was started on Zyprexa which have helped keep away manic episodes Hospital course: On admission depressed, but SI resolved; calm, cooperative and engaged in treatment. Discussed bipolar depression and medications options including lithium and Latuda. After reviewing risks/side effects, including synergistic risk when combined with the Zyprexa, TD... patient wanted to try Latuda which was started and well tolerated 04/17/23 feeling a little better; he can tell by the fact that he's not wishing he were , the ways he's interacting with others more and just overall feeling more hopeful. Says no side-effects from Latuda. Asked about increasing dose, but agrees to hold off for now given hx of side-effects from various meds...Pt says groups are helping a lot. Wants to go back to [facility] at discharge but feels needs more time to fully stabilize to which proposal lead writer agrees. -some bilateral hand tremor and intermittently mouth movements observable; did not do AIMS; discussed early on with patient who was not concerned and understands it could possibly be due to medications that affect 1/3 Although patient is feeling a little better he remains quite depressed anxious as well. And asked if Latuda can be increased. Says he thinks it is starting to help and is very encourage since there are no side effects given his lengthy list of failed medication trials. Biostatistics Director agrees that increases warranted but wants to 1st see if insurance will cover this medication which patient understands. Discussed again patient's bilateral hand tremor which he says has been present since he was a kid and that his mother has it is well; he says it is mostly just present when he is anxious. Also discussed again some tremorous movements with his mouth and patient says it does not bother him. He understands that this very well could be medication side effect and even tardive dyskinesia however he feels that the medications are helpful to the point where he does not want to lower change them and says that these potential side effects do not bother him. Regarding therapeutic interactions Patient continuing to go to groups 04/19 Patient again asks of Latuda could be increased citing continued depression; though feels like it is helping some feels mood remain significantly down that he will not be able to fend off depressive without further improvement; continues to deny any side effects. Patient remains engaged in treatment, going to groups, forthcoming and discussions with staff. -able to determine that insurance will cover Latuda at higher doses; will increase to 60 mg for continued depression 04/20 pt says feeling a little better and depression not bad hoping that increased Latuda will be effective. Will continue to monitor pt for tolerance since he has historically gotten intolerable side-effects from medications. However, if increased Latuda tolerated and effective will proceed with raheel hull 04/21 patient focused on discharge; finds that Latuda is helpful; sleeping well 04/22 He is visable and milieu involved and integrated. Feels Latuda has been helpful; feels ready for discharge Patients mood continued to improve and he felt that depression was fully resolved. He felt that Latuda made a significant difference and denied med side- effects. Pt felt back to his regular self, stable and ready to return to [facility]. He returns to a safe and structured environment. Patient is not in imminent risk for harm to self or others and request for discharge honored. History Med trials: Zyprexa Seroquel Lamictal: Cause tremors Effexor: Caused hypertension Paxil, Prozac, Zoloft: All good for anxiety but did not do much for depression Imipramine: Thinks was helpful; not sure why got off Wellbutrin: caused seizures Time spent discussing smoking cessation with patient: 3 to 10 minutes Status at Discharge Functional status at discharge: independent ambulation Overall status at discharge: patient is back to baseline Time Spent with Patient Time attestation: Total time managing care of this patient today ____ minutes. Time spent: Greater than 30 minutes Discharge Plan Discharge Anticipated Discharge Date/Time: 04/23/23 11:30 Patient Disposition: Home, Self-Care Discharge Diagnosis: Bipolar II, recurrent, severe most recently depressed in full remission Referrals: [facility] Medication Mngmt w Sigrid Alarcon [Other] - 04/24/23 2:00 pm [facility] Therapy w Daniela Ospina [Other] - 05/01/23 1:00 pm (Telehealth) [facility] Provider WILLY w Aracelis Murray [Other] - 05/08/23 2:30 pm (Telehealth) Discharge Medications: New nicotine 21 mg/24 hr Patch 24 Hour 21 mg transdermal DAILY PRN (Reason: smoking cessation) 28 Days Qty: 28 0RF nicotine (polacrilex) 4 mg Lozenge 4 mg buccal Q2H PRN (Reason: Nicotine Cravings) 30 Days Qty: 108 0RF gabapentin 400 mg Capsule 800 mg PO TID 30 Days Qty: 180 0RF lurasidone 60 mg tablet 60 mg PO DAILY@1800 30 Days Qty: 30 0RF Rx Instructions: must administer with food (at least 350 calories) methadone [Methadose] 10 mg/mL Concentrate 130 mg PO DAILY Qty: 0 0RF Rx Instructions: Partial Fill upon patient request. olanzapine 2.5 mg Tablet 2.5 mg PO Q4H PRN (Reason: milder anxiety) 30 Days Qty: 60 0RF insulin glargine [Lantus U-100 Insulin] 100 unit/mL Solution 20 unit subcut BEDTIME 30 Days Qty: 6 0RF Continued clonidine HCl 0.1 mg tablet 0.1 mg PO BID PRN (Reason: Anxiety) 30 Days Qty: 60 0RF metoprolol succinate 100 mg tablet extended release 24 hr 100 mg PO DAILY 30 Days Qty: 30 0RF chlorthalidone 25 mg tablet 25 mg PO DAILY 30 Days Qty: 30 0RF metformin 1,000 mg tablet 1,000 mg PO BID 30 Days Qty: 60 0RF olanzapine 20 mg tablet 20 mg PO BEDTIME 30 Days Qty: 30 0RF doxepin 150 mg capsule 150 mg PO BEDTIME 30 Days Qty: 30 0RF ([facility]) blood-glucose meter Kit See Rx Instructions .ROUTE .MEDSUPPLY Qty: 1 Rx Instructions: As directed Changed Januvia 25 mg tablet 25 mg PO DAILY 30 Days Qty: 30 0RF Discontinued olanzapine 20 mg tablet 20 mg PO ONCE Discharge Orders: Discharge Order (Routine); Ordered 04/23/23 Ordered By: Eric Hammond Diet: Diabetic diet Activity on Discharge: As tolerated Stand Alone Forms: Patient Portal Discharge page, Community Support Care Plan Goals: Maintain mood and safe behaviors Take medications as prescribed Continue to pursue sobriety Practice coping skills Continue with outpatient providers and reach out to them as needed Health Concerns: Mood stability and behaviors Sobriety Diabetes Neuropathic pain Plan of Treatment: Follow up with your PCP, psychiatric provider and other outpatient providers regarding above concerns Take medications as prescribed Assessment: Risk assessment at time of discharge:? Patient was interviewed prior to discharge and found to be fully oriented and without any SI or HI. Patient has improved insight and judgment and wants to continue treatment. Patient is not in imminent risk of harm to self or others and has a safety plan that includes presenting to the closest ER or calling 911 if feeling unsafe.? Patient has been observed closely by nursing and unit staff throughout admission; patient has not engaged in any behaviors that suggest dangerousness to self or others and has demonstrated appropriate behaviors and impulse control Discharge Date/Time: 04/23/23 11:25
[2023-04-23 08:26] VITALS: BP 160/86; PULSE 72; RESP 16; TEMP 36.4; O2SAT 97
[2023-04-23] MEDS: methADONE HCl 20 MG/2 ML ORAL.CONC 130 MG PO (09:10)
== END 2023-04-23 11:25 | disposition home or self-care (01) | DRG 885 ==
LOC: HO.ED 16:08 → HO.PM5 22:04
PROVIDERS: Physician Assistant; Admitting Provider Psychiatry & Neurology Psychiatry; Emergency Provider Emergency Medicine; Visit Provider Psychiatry & Neurology Psychiatry
DX: F31.81 Bipolar II disorder (principal); R45.851 Suicidal ideations; F11.20 Opioid dependence, uncomplicated; F10.90 Alcohol use, unspecified, uncomplicated; F17.210 Nicotine dependence, cigarettes, uncomplicated; E11.9 Type 2 diabetes mellitus without complications; Z20.822 Contact with and (suspected) exposure to COVID-19; Z71.6 Tobacco abuse counseling; Z79.4 Long term (current) use of insulin; Z79.84 Long term (current) use of oral hypoglycemic drugs; Z79.899 Other long term (current) drug therapy
CPT/HCPCS: 36415; 80053; 80143; 80179; 80307; 81001; 82565; 82947; 83735; 85025; 87635; 93005; 99285

== ENCOUNTER → 2023-04-12 14:11 | Outpatient (BNV) | payer MEDICARE, MEDICAID, SELFPAY | PROVIDERS: Admitting Provider Psychiatry & Neurology Psychiatry; Emergency Provider Emergency Medicine; Visit Provider Internal Medicine | DX: I45.81 Long QT syndrome (principal) | CPT/HCPCS: 93010 ==

== ENCOUNTER → 2023-04-12 21:24 | Outpatient (BNV) | payer MEDICARE, MEDICAID, SELFPAY | PROVIDERS: Admitting Provider Psychiatry & Neurology Psychiatry; Emergency Provider Emergency Medicine; Visit Provider Psychiatry & Neurology Psychiatry | DX: F31.81 Bipolar II disorder (principal); F10.90 Alcohol use, unspecified, uncomplicated | CPT/HCPCS: 90792; 99231; 99232; 99238 ==

== ENCOUNTER → 2025-04-15 23:39 | Outpatient (BNV) | payer MEDICARE, MEDICAID, SELFPAY | PROVIDERS: Emergency Provider Student in an Organized Health Care Education/Training Program; Visit Provider Internal Medicine | DX: R00.1 Bradycardia, unspecified (principal); I45.10 Unspecified right bundle-branch block | CPT/HCPCS: 93010 ==